=== PATIENT | female | born 1945 | race Caucasian/White ===

== ENCOUNTER 2021-10-26 09:15 | Outpatient (RCR) | payer MEDICARE, SELFPAY ==
[2021-09-27 09:47] VITALS: BMI 29.5
[2021-09-27 09:55] VITALS: BMI 29.5
== END 2021-12-17 14:48 | disposition home or self-care (01) ==
LOC: ANHDMC 09:15
PROVIDERS: PCP Emergency Medicine; Visit Provider Nurse Practitioner Family
DX: E11.65 Type 2 diabetes mellitus with hyperglycemia (principal); F03.90 Unspecified dementia, unspecified severity, without behavioral disturbance, psychotic disturbance, mood disturbance, and anxiety; Z71.89 Other specified counseling; Z71.3 Dietary counseling and surveillance
CPT/HCPCS: 97802; 99199; G0108

== ENCOUNTER 2022-11-29 17:20 | Emergency (ER) | payer MEDICARE, SELFPAY ==
--- NOTE | 2022-11-29 17:26 | ED.DIZZY ---
HPI - Dizziness General Chief Complaint: Dizziness Stated Complaint: Dizzy Time Seen by Provider: 11/29/22 17:35 Source: patient, RN notes reviewed and old records reviewed Mode of arrival: ambulatory Limitations: no limitations History of Present Illness HPI Narrative: 77-year-old female presents to the [facility] with complaints of dizziness that is got worse over the last 5 days.Patient states whenever she walks, turns her head or stands up the dizziness gets worse. Denies any chest pain or shortness of breath. Has a history of cardiac issues. Has a history of dementia. Patient reports several years ago she was admitted to the hospital for something similar, per medical records 2019 Onset (ago): day(s) (5) Related Data Home Medications Medication Instructions Recorded Confirmed loratadine 10 mg tablet (Claritin) 10 mg PO DAILY 11/05/19 11/29/22 aspirin 81 mg tablet,delayed 81 mg PO DAILY 03/20/21 11/29/22 release biotin 300 mcg tablet 300 mcg PO DAILY 04/24/22 11/29/22 calcium-vitamins B6-B12-FA tablet 1 tablet PO DAILY 04/24/22 11/29/22 Allergies Allergy/AdvReac Type Severity Reaction Status Date / Time tramadol Allergy Mild ITCHING,HIV Verified 11/29/22 17:47 ES Review of Systems Review of Systems: All systems reviewed & are unremarkable except as noted in HPI and below Constitutional: Constitutional: Reports no additional constitutional complaints Eyes: Eyes: Reports no additional eye complaints ENT: Reports system reviewed and no additional complaints, except as documented Cardiovascular: Cardiovascular: Reports no additional cardiovascular complaints, Denies chest pain and Denies dyspnea Respiratory: Respiratory: Reports no additional respiratory complaints, Denies chest congestion, Denies cough and Denies dyspnea Gastrointestinal: Gastrointestinal: Reports no additional gastrointestinal complaints, Denies abdominal pain, Denies nausea and Denies vomiting Musculoskeletal: Musculoskeletal: Reports no additional musculoskeletal complaints Integumentary/Breasts: Skin/Breast: Reports system reviewed and no additional complaints, except as docu Neurologic: Reports as per HPI, Reports dizziness, Denies headache(s), Denies focal weakness, Denies numbness and Denies weakness Psychiatric: Psychiatric: Reports no additional psychiatric complaints Allergic/Immunologic: Allergic/Immunologic: Reports no additional allergic/immunologic complaints PMFSH Past Medical History Medical History Balance disorder Body mass index (BMI) 23 or greater (08/06/19) Dementia Depression Diabetes mellitus Diabetic peripheral neuropathy Essential hypertension HTN (hypertension) Mixed hyperlipidemia Neuropathy CHONG (obstructive sleep apnea) Other and unspecified hyperlipidemia PAD (peripheral artery disease) Post-menopausal Right hip pain Type 2 diabetes mellitus with hyperglycemia, with long-term current use of insulin Vertigo Vitamin D deficiency Surgical History Surgical History History of ankle surgery left ankle and foot Family History Family History Sibling Hypertension Family history of diabetes mellitus in first degree relative Family history of malignant neoplasm of breast in first degree relative Family history of cardiovascular disease Mother Cerebrovascular accident Father Malignant neoplasm of prostate Patient's father is Family history of malignant neoplasm of urinary bladder, Onset Age: 75 Social History Social History Smoking packs per day: 0.25 Smoking cigarettes per day: 5.0 Years smoked: 2 Smoking pack-years: 0.50 Smoking status: Never smoker Smoking end date: 11/10/96 Alcohol intake: never Substance use: never Spiritual
[2022-11-29 17:54] LABS: Glucose Point of Care 136 mg/dl (65-105)
[2022-11-29 18:20] VITALS: BP 164/73; PULSE 82; RESP 18; TEMP 36.6; O2SAT 98
--- NOTE | 2022-11-30 16:07 | ECG_ITS ---
Measurements Intervals [place] Rate: 82 P: 3 [place]: 165 QRS: -22 QRSD: 105 T: 7 QT: 402 QTc: 471 Interpretive Statements SINUS RHYTHM BORDERLINE R WAVE PROGRESSION, ANTERIOR LEADS INFERIOR INFARCT, AGE INDETERMINATE BASELINE ARTIFACT- I, II, III, AVR, AVL, AVF ABNORMAL ECG COMPARED TO ECG 07/29/2019 20:11:43 NO SIGNIFICANT CHANGES Electronically Signed On 12-01-2022 14:01:01 BIOLOGY SPECIALIST by En Sparks D.O.
== END 2022-11-29 18:05 | disposition short-term general hospital (02) ==
PROVIDERS: Emergency Provider Nurse Practitioner; PCP Emergency Medicine
DX: R42 Dizziness and giddiness (principal); E11.9 Type 2 diabetes mellitus without complications; I10 Essential (primary) hypertension; E78.2 Mixed hyperlipidemia; F03.90 Unspecified dementia, unspecified severity, without behavioral disturbance, psychotic disturbance, mood disturbance, and anxiety; F17.210 Nicotine dependence, cigarettes, uncomplicated; Z79.82 Long term (current) use of aspirin
CPT/HCPCS: 82948; 93005; 99203; G0463

== ENCOUNTER 2022-11-29 18:59 | Emergency (ER) | payer MEDICARE, SELFPAY ==
--- NOTE | ~2022-11-29 | CT_ITS ---
EXAMINATION: CT brain wo con DATE: 11/30/2022 01:05 INDICATION: Dizziness. TECHNIQUE: Computed tomography (CT) of the head was performed without intravenous contrast. The mA wa s adjusted according to patient size. Iterative reconstruction technique was employed. The dose-lengt h product was 605.33 mGy-cm. COMPARISON: Head CT 07/29/2019 FINDINGS: There is diffuse brain volume loss. There are scattered areas of low attenuation in the cer ebral white matter. There is no intracranial hemorrhage, acute infarction, or abnormal intracranial m ass lesion. The ventricles are normal in size. The paranasal sinuses are clear. The mastoid air cells are normal. IMPRESSION: 1. Stable moderate nonspecific cerebral white matter disease, which likely represents chronic small v essel ischemic disease. Reviewed, dictated and finalized at location A. WARE TEST ANALYST IMPRESSION: 1. Stable moderate nonspecific cerebral white matter disease, which likely repr esents chronic small vessel ischemic disease.
--- NOTE | ~2022-11-29 | XR_ITS ---
EXAMINATION: XR chest 1V portable DATE: 11/30/2022 00:53 INDICATION: Weakness. TECHNIQUE: A single frontal view of the chest was obtained. COMPARISON: Chest 2 views 07/29/2019, CT abdomen and pelvis 08/28/2019 FINDINGS: There is mild atelectasis in left lower lung zone. No pleural effusion or pneumothorax. The heart size is normal. There are surgical clips in the abdomen. IMPRESSION: 1. Mild atelectasis in left lower lung zone. Reviewed, dictated and finalized at location A. OWNER OPERATOR TRUCK DRIVER
[2022-11-29 19:15] VITALS: BP 175/82; PULSE 78; RESP 18; TEMP 36.3; O2SAT 98
[2022-11-29 21:15] VITALS: BP 154/81; PULSE 80; TEMP 36.9; O2SAT 98
[2022-11-29 23:05] VITALS: BP 175/87; PULSE 78; TEMP 36.2; O2SAT 96
--- NOTE | 2022-11-30 00:43 | ECG_ITS ---
Measurements Intervals [place] Rate: 68 P: 13 VT: 160 QRS: -24 QRSD: 106 T: 10 QT: 429 QTc: 456 Interpretive Statements SINUS RHYTHM WITH SINUS ARRHYTHMIA INFERIOR INFARCT, AGE INDETERMINATE POOR R WAVE PROGRESSION, ANTERIOR LEADS ABNORMAL ECG COMPARED TO ECG 07/29/2019 20:11:43 NO SIGNIFICANT CHANGES Electronically Signed On 11-30-2022 9:59:48 SCENIC ARTIST by En Sparks D.O.
[2022-11-30] MEDS: MECLIZINE HCL 25 MG TABLET PO (00:53)
--- NOTE | 2022-11-30 01:44 | ED.GENADULT ---
HPI - General Adult General Chief complaint: Dizziness Stated complaint: DIZZINESS, OFF BALANCE Time Seen by Provider: 11/30/22 00:35 History of Present Illness HPI narrative: Patient 77-year-old female who presents the emergency department with chief complaint of dizziness. The patient reports whenever she lays back she has a feeling of lightheadedness. The patient denies chest pain denies shortness of breath patient reports has been going on for about a week was intermittent but today has become pretty well constant. The patient states she felt as though she was little off balance and felt similar to whenever she is had ear infections before in the past. Is Related Data Home Medications Medication Instructions Recorded Confirmed loratadine 10 mg tablet (Claritin) 10 mg PO DAILY 11/05/19 11/29/22 aspirin 81 mg tablet,delayed 81 mg PO DAILY 03/20/21 11/29/22 release biotin 300 mcg tablet 300 mcg PO DAILY 04/24/22 11/29/22 calcium-vitamins B6-B12-FA tablet 1 tablet PO DAILY 04/24/22 11/29/22 Allergies Allergy/AdvReac Type Severity Reaction Status Date / Time tramadol Allergy Mild ITCHING,HIV Verified 11/29/22 17:47 ES Review of Systems Review of Systems: A 10 system review of systems was completed on the patient and is negative except for what is stated in the HPI. Nursing and ancillary documentation was reviewed. [facility] Past Medical History Medical History Balance disorder Body mass index (BMI) 23 or greater (08/06/19) Dementia Depression Diabetes mellitus Diabetic peripheral neuropathy Essential hypertension HTN (hypertension) Mixed hyperlipidemia Neuropathy CHONG (obstructive sleep apnea) Other and unspecified hyperlipidemia PAD (peripheral artery disease) Post-menopausal Right hip pain Type 2 diabetes mellitus with hyperglycemia, with long-term current use of insulin Vertigo Vitamin D deficiency Surgical History Surgical History History of ankle surgery left ankle and foot Family History Family History Sibling Hypertension Family history of diabetes mellitus in first degree relative Family history of malignant neoplasm of breast in first degree relative Family history of cardiovascular disease Mother Cerebrovascular accident Father Malignant neoplasm of prostate Patient's father is Family history of malignant neoplasm of urinary bladder, Onset Age: 75 Social History Social History Smoking packs per day: 0.25 Smoking cigarettes per day: 5.0 Years smoked: 2 Smoking pack-years: 0.50 Smoking status: Never smoker Smoking end date: 11/10/96 Alcohol intake: never Substance use: never Spiritual care concerns: No Exam Narrative: GENERAL: Well-appearing, well-nourished, and in no acute distress. HEAD: Normocephalic, atraumatic. EYES: PERRLA and EOMI. ENT: Nares clear, no rhinorrhea or epistaxis. Mucous membranes moist. NECK: Supple. CHEST: Clear to auscultation. No respiratory distress. HEART: Regular rate and rhythm. No murmur heard. Normal peripheral pulses. ABDOMEN: Soft, nontender, nondistended, normal active bowel sounds. EXTREMITIES: Normal range of motion. No edema. SKIN: Warm, dry, no rash. NEURO: No focal deficits. Alert and oriented x3. PSYCH: Normal mood and affect. Course Vital Signs Vital signs: Vital Signs Temperature 36.3 C L 11/29/22 19:15 Pulse Rate 78 11/29/22 19:15 Respiratory Rate 18 11/29/22 19:15 Blood Pressure 175/82 H 11/29/22 19:15 Pulse Oximetry 98 11/29/22 19:15 Oxygen Delivery Room Air 11/29/22 19:15 Temperature 36.2 C L 11/29/22 23:05 Pulse Rate 78 11/29/22 23:05 Respiratory Rate 18 11/29/22 19:15 Blood Pressure 175/87 H
[2022-11-30 01:58] LABS: Basophils Absolute Auto 0.1 K/mm3 (0.0-0.1); Basophils Percent Auto 1.1 % (0.2-1.2); Eosinophils Absolute Auto 0.8 K/mm3 (0-0.3); Eosinophils Percent Auto 8.5 % (0-4.4); Hematocrit 38.7 % (37.0-47.0); Hemoglobin 12.7 g/dL (12.0-15.0); Immature Granulocyte Absolute 0.04 K/mm3 (0.00-0.031); Immature Granulocyte Percent A 0.4 % (0-0.5); Lymphocytes Absolute Auto 2.41 K/mm3 (0.9-3.2); Lymphocytes Percent Auto 25.5 % (18.3-44.2); Mean Corpuscular HGB Conc 32.8 g/dl (32-36); Mean Corpuscular Hemoglobin 28.5 pg (26-34); Mean Corpuscular Volume 86.8 fl (80-100); Monocytes Absolute Auto 0.7 K/mm3 (0.1-0.6); Monocytes Percent Auto 7.6 % (2.6-8.5); Neutrophils Absolute Auto 5.4 K/mm3 (1.3-6.7); Neutrophils Percent Auto 56.9 % (45.5-73.1); Platelet Count Result 306 k/mm3 (150-375); Red Blood Count 4.46 M/mm3 (4.2-5.4); Red Cell Distribution Width 13.2 % (11.5-14.5); White Blood Count 9.5 K/mm3 (4.5-10.0)
[2022-11-30 02:07] LABS: Alanine Aminotransferase 21 U/L (6-35); Albumin Level 4.5 g/dL (3.5-5.1); Alkaline Phosphatase 29 U/L (38-126); Anion Gap 9 mmol/L (8-16); Aspartate Amino Transferase 22 U/L (14-36); Bilirubin,Total 0.4 mg/dL (0.2-1.3); Blood Urea Nitrogen 9 mg/dL (7-17); Calcium 9.2 mg/dL (8.4-10.2); Carbon Dioxide 28 mmol/L (22-30); Chloride 94 mmol/L (98-107); Estimated CRCL calculation 75 ml/min; Estimated Glomerular Filt Rate > 60; Glucose 122 mg/dL (65-110); Magnesium 1.5 mg/dL (1.6-2.3); Potassium 3.7 mmol/L (3.4-5.0); Sodium 131 mmol/L (137-145)
[2022-11-30 02:19] LABS: Troponin I < 0.012 ng/mL (0.000-0.034)
[2022-11-30] MEDS: MAGNESIUM SULF 2 GM/WATER 50ML 2 GM/50 ML BAG IVPB (02:52)
[2022-11-30 03:08] LABS: Appearance Urine Clear (Clear); Bilirubin Urine Negative (Negative); Blood Urine Negative (Negative); Color Urine Yellow (Yellow); Glucose Urine UA Negative (Negative); Ketones Urine Negative (Negative); Leukocyte Esterase Ur 2+ LEU/UL (Negative); Nitrate Urine Positive (Negative); Protein Urine Negative (Negative); Specific Grav Ur 1.015 (1.001-1.035); Urobilinogen Urine 0.2 mg/dL (<2.0); pH Urine 6.5 (5.0-9.0)
[2022-11-30 03:17] LABS: Bacteria Urine Trace /hpf; Mucus Urine Rare /lpf; Squamous Epithelial Cell Urine Many /hpf (Few); WBC Urine >75 /hpf
[2022-11-30 03:20] LABS: Add Urine Microscopic? YES
[2022-11-30 05:10] VITALS: BP 177/63; PULSE 77; RESP 16; O2SAT 98
== END 2022-11-30 05:30 | disposition home or self-care (01) ==
PROVIDERS: Emergency Provider Emergency Medicine; PCP Emergency Medicine
DX: N39.0 Urinary tract infection, site not specified (principal); R42 Dizziness and giddiness; E83.42 Hypomagnesemia; F03.90 Unspecified dementia, unspecified severity, without behavioral disturbance, psychotic disturbance, mood disturbance, and anxiety; I10 Essential (primary) hypertension; E11.9 Type 2 diabetes mellitus without complications; E78.2 Mixed hyperlipidemia; Z79.82 Long term (current) use of aspirin; F17.210 Nicotine dependence, cigarettes, uncomplicated
CPT/HCPCS: 36415; 70450; 71045; 80053; 81001; 83735; 84484; 85025; 87077; 87086; 87186; 93005; 96365; 99284; A9270; J3475

== ENCOUNTER 2023-05-05 13:58 | Emergency (ER) | payer MEDICARE, SELFPAY ==
--- NOTE | ~2023-05-05 | CT_ITS ---
EXAMINATION: CT brain wo con DATE: 05/05/2023 14:48 INDICATION: Nasal pain post fall with head injury. TECHNIQUE: Computed tomography (CT) of the head was performed without intravenous contrast. Sagittal and coronal reconstructions were performed. The mA was adjusted according to patient size. Iterative reconstruction technique was employed. The dose-length product was 605.33 mGy-cm. COMPARISON: head CT dated 11/30/2022 and 07/29/2019 FINDINGS: Stable appearance of a likely old fracture deformity of the right nasal bone. No acute fracture. No a cute intracranial hemorrhage, acute infarction or abnormal extra axial fluid collection. There is mod erate scattered white matter hypoattenuation consistent with chronic small vessel ischemic disease. S ymmetric prominence of the sulci and and subarachnoid spaces overlying the convexities consistent wit h moderate age-appropriate diffuse cerebral volume loss. Ventricles are normal and symmetric. No mass /mass effect. Changes of bilateral intraocular lens replacement. The orbits, paranasal sinuses and ma stoid air cells are normal. Intracranial calcified cerebral atherosclerosis is noted at the bilateral carotid siphons. IMPRESSION: 1. No acute intracranial process. 2. Age-related changes including moderate diffuse volume loss and moderate scattered white matter hyp oattenuation consistent with chronic small vessel ischemic disease. Reviewed, dictated and finalized at location A. IMPRESSION: 1. No acute intracranial process. 2. Age-related changes including moderate diffuse volume loss and moderate scat tered white matter hypoattenuation consistent with chronic small vessel ischemi c disease.
--- NOTE | ~2023-05-05 | XR_ITS ---
EXAM: XR knee RT 3V DATE: 05/05/2023 14:58 HISTORY: fall, UNABLE TO BEND KNEE . COMPARISON: None available. FINDINGS: Decreased mineralization. Mildly comminuted fracture of the inferior patella, with 7 mm di straction. No lytic or blastic lesion. Mild tricompartmental right knee osteoarthritis. No erosion or periosteal change. Significant prepatellar soft tissue swelling. Vascular calcifications. IMPRESSION: Comminuted, distracted fracture of the right patella with considerable overlying soft tis elijah swelling. Reviewed, dictated and finalized at location K. IMPRESSION: Comminuted, distracted fracture of the right patella with considera ble overlying soft tissue swelling.
--- NOTE | ~2023-05-05 | XR_ITS ---
EXAM: XR hip RT 2V w AP pelvis DATE: 05/05/2023 14:58 HISTORY: fall, PAIN . COMPARISON: None available. FINDINGS: Decreased mineralization. No fracture or dislocation. No lytic or blastic lesion. Mild lum bar degenerative disc disease. Mild degenerative change in the hips and pubic symphysis. No erosion o r periosteal change. Pelvic phleboliths. Scattered vascular calcifications. IMPRESSION: No acute osseous finding in the pelvis or right hip. Reviewed, dictated and finalized at location K.
--- NOTE | ~2023-05-05 | CT_ITS ---
EXAMINATION: 1. CT facial & cervical spine wo DATE: 05/05/2023 14:48 INDICATION: Nasal pain post fall with head injury TECHNIQUE: 1. Computed tomography (CT) of the maxillofacial region and of the cervical spine were performed with out intravenous contrast. Sagittal and coronal reconstructions of both regions were obtained. Automat ed exposure control and iterative reconstruction technique were employed. The dose-length product was 286.50 mGy-cm. COMPARISON: Head CT dated 07/29/2019 FINDINGS: Maxillofacial CT: Stable appearance of some asymmetry to the nasal bones which could be either developmental or sequela of old fracture. No acute maxillofacial fractures identified. Changes of bilateral intraocular lens replacement. Orbits are otherwise normal. Atherosclerotic calcifications at the bilateral carotid bul bs and bilateral carotid siphons. Cervical spine CT: Alignment is normal. Vertebral body heights are normal. No fracture. Moderate disc height loss at C6- C7 and mild disc height loss at C4-C5 with moderate uncovertebral osteoarthritis at both levels. Post erior disc osteophyte complexes result in mild central canal stenosis at both of these levels. There is multilevel severe facet osteoarthritis in the mid to upper cervical spine with fusion across the l eft C2-C3 facet joints. This contributes to multilevel mild bilateral cervical neural foraminal steno sis. Mild groundglass opacity and some smooth septal line thickening at the bilateral apices of lungs consistent with mild pulmonary edema. IMPRESSION: 1. No acute maxillofacial or cervical spine fractures. 2. Mild to moderate cervical spondylosis. Reviewed, dictated and finalized at location A.
[2023-05-05 13:59] VITALS: BP 190/92; PULSE 80; RESP 20; TEMP 36.4; O2SAT 98
--- NOTE | 2023-05-05 14:03 | ED.GENADULT ---
HPI - General Adult General Chief complaint: Fall <Ray Sung PA-C - Last Filed: 05/05/23 18:35> Stated complaint: fall - knee injury <Ray Sung PA-C - Last Filed: 05/05/23 18:35> Source: patient <Ray Sung PA-C - Last Filed: 05/05/23 18:35> Mode of arrival: ambulatory <Ray Sung PA-C - Last Filed: 05/05/23 18:35> Limitations: no limitations <FABIOLA Tena Last Filed: 05/05/23 18:35> History of Present Illness HPI narrative: This is a 78-year-old female who presents to the ED via EMS for chief complaint of a fall. Patient reports she was walking through the house when she tripped on the floor lip in between her kitchen and living room. Denies any LOC. She is not on blood thinners other than baby aspirin every day. She reports she fell directly onto the right knee and hit her face as well. She reports pain to the right knee and right thigh. Reports minimal pain to the right hip. Denies any neurologic symptoms. Denies any further site of pain or injury. Per EMS she received 4 of morphine in route. <FABIOLA Tena Last Filed: 05/05/23 18:35> Related Data Home medications: Home Medications Medication Instructions Recorded Confirmed loratadine 10 mg tablet (Claritin) 10 mg PO DAILY 11/05/19 02/18/23 aspirin 81 mg tablet,delayed 81 mg PO DAILY 03/20/21 02/18/23 release biotin 300 mcg tablet 300 mcg PO DAILY 04/24/22 02/18/23 calcium-vitamins B6-B12-FA tablet 1 tablet PO DAILY 04/24/22 02/18/23 <FABIOLA Tena Last Filed: 05/05/23 18:35> Allergies/adverse reactions: Allergies Allergy/AdvReac Type Severity Reaction Status Date / Time tramadol Allergy Mild ITCHING,HIV Verified 05/05/23 14:10 ES <FABIOLA Tena Last Filed: 05/05/23 18:35> [facility] Past Medical History Medical History: Medical History Balance disorder Body mass index (BMI) 23 or greater (08/06/19) Dementia Depression Diabetes mellitus Diabetic peripheral neuropathy Essential hypertension HTN (hypertension) Mixed hyperlipidemia Neuropathy CHONG (obstructive sleep apnea) Other and unspecified hyperlipidemia PAD (peripheral artery disease) Post-menopausal Right hip pain Type 2 diabetes mellitus with hyperglycemia, with long-term current use of insulin Vertigo Vitamin D deficiency <Ray Sung PA-C - Last Filed: 05/05/23 18:35> Surgical History Surgical History: Surgical History History of ankle surgery left ankle and foot <Ray Sung PA-C - Last Filed: 05/05/23 18:35> Family History Family History: Family History Sibling Hypertension Family history of diabetes mellitus in first degree relative Family history of malignant neoplasm of breast in first degree relative Family history of cardiovascular disease Mother Cerebrovascular accident Father Malignant neoplasm of prostate Patient's father is Family history of malignant neoplasm of urinary bladder, Onset Age: 75 <FABIOLA Tena Last Filed: 05/05/23 18:35> Social History Social History: Social History Smoking packs per day: 0.25 Smoking cigarettes per day: 5.0 Years smoked: 2 Smoking pack-years: 0.50 Smoking status: Never smoker Smoking end date: 11/10/96 Alcohol intake: never Substance use: never Spiritual care concerns: No <FABIOLA Tena Last Filed: 05/05/23 18:35> Exam Narrative: GENERAL: Well-appearing, well-nourished, and in no acute distress. HEAD: Normocephalic, atraumatic. Minimal tenderness throughout the face. EYES: PERRLA and EOMI. ENT: Nares clear, no rhinorrhea or epistaxis. Mucous membranes moist. Oropharynx without tonsillar hypertrophy exudate or o
[2023-05-05 15:19] VITALS: BP 168/81; PULSE 84; RESP 18; O2SAT 99
[2023-05-05 15:27] LABS: Basophils Absolute Auto 0.1 K/mm3 (0.0-0.1); Eosinophils Absolute Auto 0.8 K/mm3 (0-0.3); Eosinophils Percent Auto 8.7 % (0-4.4); Hematocrit 36.9 % (37.0-47.0); Hemoglobin 12.3 g/dL (12.0-15.0); Immature Granulocyte Absolute 0.03 K/mm3 (0.00-0.031); Immature Granulocyte Percent A 0.3 % (0-0.5); Lymphocytes Absolute Auto 1.45 K/mm3 (0.9-3.2); Lymphocytes Percent Auto 16.1 % (18.3-44.2); Mean Corpuscular HGB Conc 33.3 g/dl (32-36); Mean Corpuscular Hemoglobin 28.9 pg (26-34); Mean Corpuscular Volume 86.8 fl (80-100); Mean Platelet Volume 9.1 fl (7.4-10.4); Monocytes Absolute Auto 0.5 K/mm3 (0.1-0.6); Monocytes Percent Auto 5.5 % (2.6-8.5); Neutrophils Absolute Auto 6.2 K/mm3 (1.3-6.7); Neutrophils Percent Auto 68.4 % (45.5-73.1); Platelet Count Result 298 k/mm3 (150-375); Red Blood Count 4.25 M/mm3 (4.2-5.4); Red Cell Distribution Width 13.2 % (11.5-14.5)
[2023-05-05 15:37] LABS: Alanine Aminotransferase 24 U/L (6-35); Albumin Level 4.4 g/dL (3.5-5.1); Alkaline Phosphatase 33 U/L (38-126); Anion Gap 9 mmol/L (8-16); Aspartate Amino Transferase 26 U/L (14-36); Bilirubin,Total 0.3 mg/dL (0.2-1.3); Blood Urea Nitrogen 8 mg/dL (7-17); Calcium 9.2 mg/dL (8.4-10.2); Carbon Dioxide 29 mmol/L (22-30); Chloride 92 mmol/L (98-107); Estimated CRCL calculation 72 ml/min; Estimated Glomerular Filt Rate > 60; Glucose 178 mg/dL (65-110); Potassium 4.3 mmol/L (3.4-5.0); Sodium 130 mmol/L (137-145)
[2023-05-05 15:39] LABS: INR 0.9; Prothrombin Time 12.9 Seconds (11.1-14.7)
[2023-05-05 17:30] VITALS: BP 133/67; PULSE 86; RESP 16; O2SAT 99
--- NOTE | 2023-05-06 16:20 | PCCCNOTE ---
Call received from pt asking for information on being admitted to a facility after falling and being seen with fractured patella. She had been to [facility] in the past and would like to go there if possible. Call placed to [facility] and spoke with Lauren. They would need to run financials before they could accept her and then require payment up front for $275 per day plus any therapy charges. Informed pt and gave her facility's phone number. It was also recommended to her that she contact her insurance if she thinks they will cover but informed they may not as she was not admitted. She will call and has a dtr in the are who is bringing her a wheelchair. She has a walker.
== END 2023-05-05 18:07 | disposition home or self-care (01) ==
PROVIDERS: Emergency Provider Physician Assistant; PCP Emergency Medicine
DX: S82.041A Displaced comminuted fracture of right patella, initial encounter for closed fracture (principal); M25.551 Pain in right hip; E11.9 Type 2 diabetes mellitus without complications; I10 Essential (primary) hypertension; E78.2 Mixed hyperlipidemia; F03.90 Unspecified dementia, unspecified severity, without behavioral disturbance, psychotic disturbance, mood disturbance, and anxiety; F17.210 Nicotine dependence, cigarettes, uncomplicated; F32.A Depression, unspecified; Z78.0 Asymptomatic menopausal state; Z79.82 Long term (current) use of aspirin; Y92.000 Kitchen of unspecified non-institutional (private) residence as the place of occurrence of the external cause; W01.0XXA Fall on same level from slipping, tripping and stumbling without subsequent striking against object, initial encounter
CPT/HCPCS: 36415; 70450; 70486; 72125; 73502; 73562; 80053; 85025; 85610; 99284

== ENCOUNTER 2024-05-01 13:06 | Emergency (ER) | payer MEDICARE, SELFPAY ==
--- NOTE | ~2024-05-01 | XR_ITS ---
XR knee LT min 4V DATE: 05/01/2024 13:31 INDICATION: Struck knee on an object 3 days ago. Left knee pain. TECHNIQUE: [place], [place], AP and lateral views of left knee COMPARISON: None FINDINGS: Mild superior pole patellar enthesopathy at the quadriceps tendon insertion site. Mild loss of medial joint space height with slight periarticular spurring of the medial femoral condy le. No fracture or dislocation or joint effusion. No periosteal reaction or bone destruction. Osteopenia. Prominent femoral and popliteal artery in addition some trifurcation artery calcifications IMPRESSION: No fracture or dislocation or joint effusion Mild osteoarthritis Osteopenia Reviewed, dictated and finalized at location A.
--- NOTE | ~2024-05-01 | US_ITS ---
EXAMINATION: US venous doppler [facility] DATE: 05/01/2024 14:02 INDICATION: Left lower limb swelling. TECHNIQUE: Grayscale ultrasound images without and with compression and Doppler ultrasound images of the left lower extremity veins were obtained. COMPARISON: None. FINDINGS: The visualized portions of left common femoral vein, profunda (deep) femoral vein, femoral vein, popl iteal vein, peroneal veins, posterior tibial veins, and greater saphenous vein outflow are patent. IMPRESSION: 1. No deep venous thrombosis. Reviewed, dictated and finalized at location E.
[2024-05-01 13:07] VITALS: BP 165/61; PULSE 94; RESP 20; TEMP 36.5; O2SAT 97
--- NOTE | 2024-05-01 13:38 | ED.EXTPRO ---
HPI - Extremity Problem General Chief complaint: Extremity Problem,Nontraumatic Stated complaint: LLE swelling Time Seen by Provider: 05/01/24 13:35 Source: patient and family (grandson) Mode of arrival: ambulatory Limitations: dementia History of Present Illness HPI Narrative: patient presents with left lower extremity swelling and edema for the past 4 days. She notes pain primarily along the lateral side of her left knee. She denies any trauma or injury however her grandson says she slipped last week on some water. No recent travel. she denies any shortness of breath. She took Aleve 3 hours prior to arrival. Pain is worse when walking. She states she is having some slight paresthesias in the same distribution of the area the pain. No prior injury or surgery on this extremity. She does note that she previously saw an orthopedic surgeon for a right knee fracture, a Dr Payne (?). she does note that she hears some pops and clicks when she walks. Related Data Home Medications Medication Instructions Recorded Confirmed aspirin 81 mg tablet,delayed 81 mg PO DAILY 03/20/21 04/08/24 release calcium-vitamins B6-B12-FA tablet 1 tablet PO DAILY 04/24/22 04/08/24 multivitamin 1 tablet PO DAILY 06/24/23 04/08/24 Allergies Allergy/AdvReac Type Severity Reaction Status Date / Time tramadol Allergy Mild ITCHING,HIV Verified 05/01/24 13:10 [facility] Past Medical History Medical History (Updated 05/02/24 @ 21:31 by Ginny Veronica MD) Balance disorder Body mass index (BMI) 23 or greater (08/06/19) Dementia Depression Diabetic peripheral neuropathy Essential hypertension HTN (hypertension) Insulin dependent diabetes mellitus Knee fracture, right Mixed hyperlipidemia Neuropathy CHONG (obstructive sleep apnea) Other and unspecified hyperlipidemia PAD (peripheral artery disease) Post-menopausal Right hip pain Vertigo Vitamin D deficiency Surgical History Surgical History History of ankle surgery left ankle and foot Family History Family History Sibling Hypertension Family history of diabetes mellitus in first degree relative Family history of malignant neoplasm of breast in first degree relative Family history of cardiovascular disease Mother Cerebrovascular accident Father Malignant neoplasm of prostate Patient's father is Family history of malignant neoplasm of urinary bladder, Onset Age: 75 Social History Social History Smoking packs per day: 0.25 Smoking cigarettes per day: 5.0 Years smoked: 2 Smoking pack-years: 0.50 Smoking status: Former smoker Smoking end date: 11/10/96 Alcohol intake: never Substance use: never Lack of Transportation: YES Lack of Food: Never True Current Housing: I Have Housing Concerned About Future Housing: No Difficulty Paying Gas/Electric Bills: YES Difficulty Paying for Meds: No Currently Unemployed: No Education: High School Diploma/GED Difficulty w/ Childcare or Family Care: No Occupation/Education: retired Gender identity (if verbalized by the patient): Female Spiritual care concerns: No Exam Narrative: GENERAL: Well-appearing, well-nourished, and in no acute distress. HEAD: Normocephalic, atraumatic. EYES: Non injected, non icteric ENT: Nares clear, no rhinorrhea or epistaxis. NECK: Supple. CHEST: Speaking in full sentences. No respiratory distress. HEART: Regular rate and rhythm. . ABDOMEN: Soft, nondistended. EXTREMITIES: Normal range of motion. No pitting edema. No increased laxity with anterior or posterior drawer testing of left knee. SKIN: Warm, dry, venous stasis changes across bilateral lower extremities NEURO: No focal deficits. Alert and oriented. diminished sensation in bilateral lower extremities in the m
[2024-05-01] MEDS: HYDROcodone/acetaminophen (*CRX) 5-325 MG TABLET 1 TAB PO (14:14)
[2024-05-01 14:43] VITALS: BP 130/76; PULSE 72; RESP 16; TEMP 36.6; O2SAT 98
[2024-05-01 14:45] VITALS: BP 137/65; PULSE 75; RESP 18; TEMP 36.6; O2SAT 100
== END 2024-05-01 14:44 | disposition home or self-care (01) ==
PROVIDERS: Emergency Provider Student in an Organized Health Care Education/Training Program; PCP Emergency Medicine
DX: M17.12 Unilateral primary osteoarthritis, left knee (principal); F03.90 Unspecified dementia, unspecified severity, without behavioral disturbance, psychotic disturbance, mood disturbance, and anxiety; I10 Essential (primary) hypertension; E78.2 Mixed hyperlipidemia; E11.42 Type 2 diabetes mellitus with diabetic polyneuropathy; E11.51 Type 2 diabetes mellitus with diabetic peripheral angiopathy without gangrene; I73.9 Peripheral vascular disease, unspecified; E55.9 Vitamin D deficiency, unspecified; G47.33 Obstructive sleep apnea (adult) (pediatric); Z87.891 Personal history of nicotine dependence; M85.88 Other specified disorders of bone density and structure, other site; Z79.82 Long term (current) use of aspirin; Z79.899 Other long term (current) drug therapy; Z79.4 Long term (current) use of insulin; Z79.85 Long-term (current) use of injectable non-insulin antidiabetic drugs
CPT/HCPCS: 73564; 93971; 99284; A9270

== ENCOUNTER 2024-08-10 16:17 | Emergency (ER) | payer MEDICARE, SELFPAY ==
--- NOTE | ~2024-08-10 | CT_ITS ---
EXAMINATION: CT brain wo con DATE: 08/10/2024 16:43 INDICATION: fall . TECHNIQUE: Computed tomography (CT) of the head was performed without intravenous contrast. The mA wa s adjusted according to patient size. Iterative reconstruction technique was employed. The dose-lengt h product was 605.33 mGy-cm. COMPARISON: None. FINDINGS: No acute intracranial hemorrhage or extra-axial fluid collection. No hydrocephalus, mass, or herniation. No acute ischemic infarct. Unremarkable dural venous sinus attenuation. No acute osseous abnormality. Right frontal contusion/hematoma The aerated spaces are clear. Moderate atrophy and chronic white matter change. Atherosclerotic intracranial calcification. Bilater al lens replacements. 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 IMPRESSION: No acute intracranial process. Reviewed, dictated and finalized at location K.
--- NOTE | ~2024-08-10 | CT_ITS ---
EXAMINATION: CT cervical spine wo con DATE: 08/10/2024 16:43 INDICATION: fall TECHNIQUE: Computed tomography (CT) of the cervical spine was performed without intravenous contrast. Automated exposure control and iterative reconstruction technique were employed. The dose-length pro duct was 202.35 mGy-cm. COMPARISON: 05/05/2023. FINDINGS: Vertebral Body Alignment: Intact. Craniocervical and atlantoaxial alignment: Moderate degenerative change. Alignment intact. Osseous structures/fracture: No evidence of a lytic or blastic process in the visualized spine. No e vidence of acute fracture. Cervical soft tissues: The paraspinal soft tissues planes are maintained. Mild interstitial/senescent changes in the lung apices. Degenerative changes: Degenerative changes, without severe neural foraminal or central canal narrowin g. IMPRESSION: No acute fracture or traumatic malalignment in the cervical spine. Reviewed, dictated and finalized at location K.
[2024-08-10 17:00] VITALS: BP 154/77; PULSE 95; RESP 16; TEMP 36.8; O2SAT 96
--- NOTE | 2024-08-10 18:51 | ED.HEATRA ---
HPI - Head Injury General Chief complaint: Head Injury Stated complaint: head injury/fall Time Seen by Provider: 08/10/24 18:51 Focused HPI: this is a 79-year-old female that presents to the emergency department after a fall with head injury. Reports she was leaning and son object that was unsteady. This caused her to fall. She hit her head. She did not lose consciousness. Denies vision changes, vomiting, numbness, weakness. GENERAL: Well-appearing, well-nourished, and in no acute distress. HEAD: Normocephalic. Bruising over the right forehead CHEST: Clear to auscultation. ?No respiratory distress. HEART: Regular rate and rhythm.? NEURO: ?Alert and oriented x3. Patient screened in triage and initial orders placed.? ?Additional care and disposition to be based upon?diagnostic testing and treatment. Related Data Home Medications Medication Instructions Recorded Confirmed aspirin 81 mg tablet,delayed 81 mg PO DAILY 03/20/21 04/08/24 release calcium-vitamins B6-B12-FA tablet 1 tablet PO DAILY 04/24/22 04/08/24 multivitamin 1 tablet PO DAILY 06/24/23 04/08/24 Allergies Allergy/AdvReac Type Severity Reaction Status Date / Time tramadol Allergy Mild ITCHING,HIV Verified 05/01/24 13:10 ES Review of Systems Review of Systems: CONSTITUTIONAL: Denies fever EYES: Denies visual changes GASTROINTESTINAL: Denies vomiting MUSCULOSKELETAL: Denies back pain, joint pain, or myalgia. NEUROLOGIC: Denies numbness, or weakness. All systems reviewed & are unremarkable except as noted in HPI and below PMFSH Past Medical History Medical History (Updated 08/10/24 @ 18:52 by Maria Teresa Gimenez PA-C) Balance disorder Body mass index (BMI) 23 or greater (08/06/19) Dementia Depression Diabetic peripheral neuropathy Essential hypertension HTN (hypertension) Insulin dependent diabetes mellitus Knee fracture, right Mixed hyperlipidemia Neuropathy CHONG (obstructive sleep apnea) Other and unspecified hyperlipidemia PAD (peripheral artery disease) Post-menopausal Right hip pain Vertigo Vitamin D deficiency Surgical History Surgical History History of ankle surgery left ankle and foot Family History Family History Sibling Hypertension Family history of diabetes mellitus in first degree relative Family history of malignant neoplasm of breast in first degree relative Family history of cardiovascular disease Mother Cerebrovascular accident Father Malignant neoplasm of prostate Patient's father is Family history of malignant neoplasm of urinary bladder, Onset Age: 75 Social History Social History Smoking packs per day: 0.25 Smoking cigarettes per day: 5.0 Years smoked: 2 Smoking pack-years: 0.50 Smoking status: Former smoker Smoking end date: 11/10/96 Alcohol intake: never Substance use: never Lack of Transportation: YES Lack of Food: Never True Current Housing: I Have Housing Concerned About Future Housing: No Difficulty Paying Gas/Electric Bills: YES Difficulty Paying for Meds: No Currently Unemployed: No Education: High School Diploma/GED Difficulty w/ Childcare or Family Care: No Occupation/Education: retired Gender identity (if verbalized by the patient): Female Spiritual care concerns: No Exam Narrative: GENERAL: Elderly, well-nourished, and in no acute distress. HEAD: Normocephalic. Forehead bruising, bruising of the right eyelid EYES: PERRLA and EOMI. ENT: Nares clear, no rhinorrhea or epistaxis. Mucous membranes moist. Oropharynx without tonsillar hypertrophy exudate or other lesions. Bilateral TMs pearly cruz non-bulging NECK: Supple. No adenopathy or masses. CHEST: Clear to auscultation. No respiratory distress. No wheezes rales or rhonchi HEART: Regular rate and rh
== END 2024-08-10 18:55 | disposition home or self-care (01) ==
LOC: ANHED 18:54
PROVIDERS: Emergency Provider Physician Assistant; PCP Emergency Medicine
DX: S09.90XA Unspecified injury of head, initial encounter (principal); W19.XXXA Unspecified fall, initial encounter; F03.90 Unspecified dementia, unspecified severity, without behavioral disturbance, psychotic disturbance, mood disturbance, and anxiety; E11.42 Type 2 diabetes mellitus with diabetic polyneuropathy; I10 Essential (primary) hypertension; E78.2 Mixed hyperlipidemia; G47.33 Obstructive sleep apnea (adult) (pediatric); E11.51 Type 2 diabetes mellitus with diabetic peripheral angiopathy without gangrene; E55.9 Vitamin D deficiency, unspecified; F32.A Depression, unspecified; Z79.82 Long term (current) use of aspirin; Z87.891 Personal history of nicotine dependence; Z79.4 Long term (current) use of insulin; Z79.85 Long-term (current) use of injectable non-insulin antidiabetic drugs; Z79.84 Long term (current) use of oral hypoglycemic drugs
CPT/HCPCS: 70450; 72125; 99284

== ENCOUNTER 2024-11-28 09:22 | Emergency (ER) | payer MEDICARE, SELFPAY ==
[2024-11-28] VITALS (17 sets, daily range): BP systolic 121–177; BP diastolic 62–77; PULSE 74–85; RESP 12–23; TEMP 36.5; O2SAT 96–100
--- NOTE | ~2024-11-28 | CT_ITS ---
CLINICAL INDICATION: Abnormal ultrasound without a history of trauma. COMPARISON: Reference is made to prior ultrasound examination of the right lower extremity, performed on the same day. TECHNIQUE: Computed tomography angiography (CTA) of the bilateral lower extremities was performed wit h 100 mL Omnipaque-350 intravenous contrast timed to evaluate the abdominal aorta and mesenteric vasc ulature. Coronal maximum intensity projection 3D-reconstructions were created by the technologist. Th e dose-length product (DLP) was 556.31 mGy-cm. Automated exposure control and iterative reconstructio n technique were employed. FINDINGS/OBSERVATIONS: Within the right popliteal fossa is a small Sosa's cyst, likely not the source of patient's presenta tion. Caudal to the popliteal fossa is abnormal attenuation and enlargement of the gastrocnemius muscle wit h increased vascularity, but without a discrete fluid collection identified. No bony abnormality is appreciated within the bilateral lower extremities (except fixation hardware w ithin the left fibula). IMPRESSION: Findings within the right calf, corresponding to the area of clinical concern for which contrast enha nced MRI is recommended. Follow-up to resolution is recommended, as a malignancy may have a similar appearance. Small right-sided Sosa's cyst, not the source of patient's presentation. Reviewed, dictated and finalized at location A. [employer] IMPRESSION: Findings within the right calf, corresponding to the area of clinical concern f or which contrast enhanced MRI is recommended. Follow-up to resolution is recommended, as a malignancy may have a similar appe arance. Small right-sided Sosa's cyst, not the source of patient's presentation.
--- NOTE | ~2024-11-28 | US_ITS ---
EXAMINATION: US venous doppler [facility] DATE: 11/28/2024 11:14 INDICATION: Swelling TECHNIQUE: Grayscale ultrasound images without and with compression and Doppler ultrasound images of the right lower extremity veins were obtained. COMPARISON: None. FINDINGS: The visualized portions of right common femoral vein, profunda (deep) femoral vein, femoral vein, pop liteal vein, peroneal veins, posterior tibial veins, and greater saphenous vein outflow are patent. Within the area of clinical concern is an avascular focus of mixed echogenicity measuring 72 x 32 x 6 7mm, possibly a hematoma. IMPRESSION: No deep venous thrombosis. 7.2 cm focus of mixed echogenicity within the right calf (the area of clinical concern) sonographical ly suggesting a hematoma for which clinical correlation is suggested Reviewed, dictated and finalized at location A. [employer] IMPRESSION: No deep venous thrombosis. 7.2 cm focus of mixed echogenicity within the right calf (the area of clinical concern) sonographically suggesting a hematoma for which clinical correlation i s suggested
[2024-11-28 10:51] LABS: Basophils Absolute Auto 0.1 K/mm3 (0.0-0.1); Basophils Percent Auto 0.5 % (0.2-1.2); Eosinophils Absolute Auto 0.5 K/mm3 (0-0.3); Eosinophils Percent Auto 4.6 % (0-4.4); Hematocrit 30.8 % (37.0-47.0); Hemoglobin 9.8 g/dL (12.0-15.0); Immature Granulocyte Absolute 0.05 K/mm3 (0.00-0.031); Immature Granulocyte Percent A 0.5 % (0-0.5); Lymphocytes Absolute Auto 1.39 K/mm3 (0.9-3.2); Mean Corpuscular HGB Conc 31.8 g/dl (32-36); Mean Corpuscular Hemoglobin 27.3 pg (26-34); Mean Corpuscular Volume 85.8 fl (80-100); Mean Platelet Volume 9.3 fl (7.4-10.4); Monocytes Absolute Auto 0.7 K/mm3 (0.1-0.6); Monocytes Percent Auto 6.6 % (2.6-8.5); Neutrophils Percent Auto 74.8 % (45.5-73.1); Platelet Count Result 293 k/mm3 (150-375); Red Blood Count 3.59 M/mm3 (4.2-5.4); Red Cell Distribution Width 14.6 % (11.5-14.5); White Blood Count 10.7 K/mm3 (4.5-10.0)
[2024-11-28 10:58] LABS: Anion Gap 10 mmol/L (4-12); Blood Urea Nitrogen 12 mg/dL (7-17); Calcium 8.8 mg/dL (8.4-10.2); Carbon Dioxide 27 mmol/L (22-30); Chloride 97 mmol/L (98-107); Estimated CRCL calculation 80 ml/min; Estimated Glomerular Filt Rate > 60; Glucose 156 mg/dL (65-110); Potassium 4.9 mmol/L (3.4-5.0); Sodium 134 mmol/L (137-145)
[2024-11-28 11:00] LABS: Prothrombin Time 13.6 Seconds (11.1-14.7)
--- NOTE | 2024-11-28 11:04 | ED_ITS ---
HPI - Extremity Problem General Chief complaint: Extremity Problem,Nontraumatic Stated complaint: R knee pain, edema Time Seen by Provider: 11/28/24 09:59 Source: patient Mode of arrival: EMS Limitations: no limitations History of Present Illness HPI Narrative: This is a 79-year-old female, with history of hypertension, diabetes and hyperlipidemia, who presents emergency department complaining of right knee and calf pain and swelling for the past day. The patient denies any known trauma. She complains of 5/10 dull pain. She denies chest pain, shortness of breath or loss of consciousness. She denies any known history of blood clots or any recent change in medications. She has no other complaints at this time. Related Data Home Medications ?Medication ?Instructions ?Recorded ?Confirmed ?Last Taken ?Type aspirin 81 mg tablet,delayed 81 mg PO DAILY 03/20/21 08/16/24 Unknown History release Allergies Allergy/AdvReac Type Severity Reaction Status Date / Time tramadol Allergy Mild ITCHING,HIV Verified 08/30/24 13:24 ES Review of Systems 2 Review of Systems: All systems reviewed & are unremarkable except as noted in HPI and below PMFSH Past Medical History Medical History Xerophthalmia Patellar sleeve fracture of right knee Dysuria UTI (urinary tract infection) Contact dermatitis Effusion of knee joint Right knee pain Knee fracture, right Insulin dependent diabetes mellitus Right hip pain Post-menopausal Neuropathy Depression Vitamin D deficiency Vertigo PAD (peripheral artery disease) Other and unspecified hyperlipidemia CHONG (obstructive sleep apnea) Mixed hyperlipidemia Essential hypertension Body mass index (BMI) 23 or greater (08/06/19) Balance disorder Diabetic peripheral neuropathy HTN (hypertension) Dementia Surgical History Surgical History History of ankle surgery left ankle and foot Family History Family History Sibling Hypertension Family history of diabetes mellitus in first degree relative Family history of malignant neoplasm of breast in first degree relative Family history of cardiovascular disease Mother Cerebrovascular accident Father Malignant neoplasm of prostate Patient's father is Family history of malignant neoplasm of urinary bladder, Onset Age: 75 Social History Social History Smoking packs per day: 0.25 Smoking cigarettes per day: 5.0 Years smoked: 2 Smoking pack-years: 0.50 Smoking status: Former smoker Smoking end date: 11/10/96 Alcohol intake: never Substance use: never Lack of Transportation: YES Lack of Food: Never True Current Housing: I Have Housing Concerned About Future Housing: No Difficulty Paying Gas/Electric Bills: YES Difficulty Paying for Meds: No Currently Unemployed: No Education: High School Diploma/GED Difficulty w/ Childcare or Family Care: No Occupation/Education: retired Gender identity (if verbalized by the patient): Female Spiritual care concerns: No Exam 2 Narrative: GENERAL: Well-developed, well-nourished, and in no acute distress. HEAD: Normocephalic, atraumatic. EYES: PERRLA and EOMI. CHEST: Clear to auscultation. No respiratory distress. No wheezes rales or rhonchi HEART: Regular rate and rhythm. No murmur heard. Normal peripheral pulses. EXTREMITIES: The right foreleg is edematous 1+ an enlarged compared to the left. No malleolar tenderness or knee pain on palpation. Passive dorsiflexion of the right foot elicits pain in the calf. Normal range of motion. No edema. SKIN: Warm, dry, no rash. NEURO: Alert and oriented x3. No focal deficit. Moving all 4 limbs spontaneously PSYCH: Normal mood and affect. Course Course Emergency Course: 15:05 - CBC demonstrates mildly elevated white blood cell count of 10.7 and anemia with hemoglobin of 9.8 that is decreased from her baseline of 12. Chemistries unremarkable. Ultrasound of the right lower extremity demonstrates a heterogenous mass without changes concerning for DVT. I obtain a CT angiogram of the leg to rule out hemorrhage. No active hemorrhage is noted no increased vascularity of an abnormal mass is concerning for malignancy. MRI recommended by Radiology. I discussed the findings with the patient with recommendation for primary care follow-up and imaging. Discussed return and emergency precautions including signs/symptoms of deep space infection and compartment syndrome. The patient voiced understanding and agreement with the plan. All questions answered to her satisfaction. Vital Signs Vital signs: Vital Signs Temperature 97.7 F 11/28/24 09:25 Pulse Rate 77 11/28/24 09:25 Respiratory Rate 14 11/28/24 09:25 Blood Pressure 171/77 H 11/28/24 09:25 Pulse Oximetry 99 11/28/24 09:25 Oxygen Delivery Room Air 11/28/24 09:25 Temperature 97.7 F 11/28/24 09:25 Pulse Rate 85 11/28/24 15:25 Respiratory Rate 18 11/28/24 15:25 Blood Pressure 135/66 11/28/24 15:25 Pulse Oximetry 96 11/28/24 15:25 Oxygen Delivery Room Air 11/28/24 10:30 MDM - Extremity (Nontraumatic) MDM Narrative Medical decision making narrative: Plan: Labs, imaging, reassess Differential Diagnosis Differential diagnosis: Likely other (DVT, lower extremity edema, other) Lab Data 11/28/24 10:43 11/28/24 10:43 Labs: Lab Results 11/28/24 Range/Units 10:43 WBC 10.7 H (4.5-10.0) K/mm3 RBC 3.59 L (4.2-5.4) M/mm3 Hgb 9.8 L (12.0-15.0) g/dL Hct 30.8 L (37.0-47.0) % MCV 85.8 (80-100) fl MCH 27.3 (26-34) pg MCHC 31.8 L (32-36) g/dl RDW 14.6 H (11.5-14.5) % Plt Count 293 (150-375) k/mm3 MPV 9.3 (7.4-10.4) fl Immature Gran % (Auto) 0.5 (0-0.5) % Neut % (Auto) 74.8 H (45.5-73.1) % Lymph % (Auto) 13.0 L (18.3-44.2) % [place] % (Auto) 6.6 (2.6-8.5) % Eos % (Auto) 4.6 H (0-4.4) % Baso % (Auto) 0.5 (0.2-1.2) % Lymph # (Auto) 1.39 (0.9-3.2) K/mm3 [place]osa # (Auto) 0.7 H (0.1-0.6) K/mm3 Eos # (Auto) 0.5 H (0-0.3) K/mm3 Baso # (Auto) 0.1 (0.0-0.1) K/mm3 Abs Immat Gran (auto) 0.05 H (0.00-0.031) K/mm3 Absolute Neuts (auto) 8.0 H (1.3-6.7) K/mm3 Absolute Nucleated RBC 0.000 (0.0-0.012) K/mm3 Nucleated RBC % 0.0 (0.0-0.2) % PT 13.6 (11.1-14.7) Seconds INR 1.0 Sodium 134 L (137-145) mmol/L Potassium 4.9 (3.4-5.0) mmol/L Chloride 97 L (98-107) mmol/L Carbon Dioxide 27 (22-30) mmol/L Anion Gap 10 (4-12) mmol/L BUN 12 (7-17) mg/dL Creatinine 0.44 L (0.7-1.0) mg/dL Estim Creat Clear Calc 80 ml/min Estimated GFR > 60 (59 - ) Glucose 156 H (65-110) mg/dL Calcium 8.8 (8.4-10.2) mg/dL Discharge Plan Discharge Clinical Impression: Acute pain of right lower extremity, Mass Patient Disposition: Home, Self-Care Condition: Stable Instructions: Antibiotic Form, Soft Tissue Mass (ED) Additional Instructions: You were seen in the emergency department. An ultrasound of the leg with not concerning for blood clot. A CT scan of the leg showed an abnormal attenuation and enlargement of the gastrocnemius muscle with increased vascularity, but without a discrete fluid collection identified. It is possible that this is a cancerous mass. Our radiologist recommend MRI. I recommend following up with your primary care doctor for imaging and possible biopsy. If you develop fevers with rapidly spreading redness and increasing pain, the foot or toes appeared blue/cold, or if you have other emergent concerns for life, limb, or eyesight, return to the emergency department. Patient Language: Turkish Prescriptions: New hydrocodone-acetaminophen 5-325 mg tablet 1 tablet PO HS PRN (Reason: pain) Qty: 10 0RF No Action aspirin 81 mg tablet,delayed release (DR/EC) 81 mg PO DAILY insulin glargine [Lantus Solostar U-100 Insulin] 100 unit/mL (3 mL) insulin pen 16 unit subcut QAM Qty: 15 0RF Jardiance 10 mg tablet 10 mg PO DAILY 90 Days Qty: 90 3RF Trulicity 0.75 mg/0.5 mL pen injector 0.75 mg subcut WEEKLY Qty: 2 3RF ibuprofen 600 mg tablet 600 mg PO TID PRN (Reason: pain) Qty: 20 0RF (DME) lancets [Accu-Chek Fastclix Lancet Drum] Misc See Rx Instructions .Route Qty: 300 3RF Rx Instructions: Use to test up to TID as directed (DME) insulin syringe-needle U-100 [Advocate Syringes] 1 mL 31 gauge x 5/16 syringe See Rx Instructions .Route Qty: 100 2RF Rx Instructions: As directed (DME) pen needle, diabetic [BD Betsey 2nd Gen Pen Needle] 32 gauge x 5/32 needle See Rx Instructions .Route Qty: 100 4RF Rx Instructions: As directed alcohol swabs [DropSafe Alcohol Prep Pads] Pads, Medicated See Rx Instructions .ROUTE .COMPLEX Qty: 300 2RF Dose Instruction: USE THREE TIMES DAILY DIRECTED Rx Instructions: USE THREE TIMES DAILY DIRECTED oxcarbazepine 150 mg tablet See Rx Instructions .ROUTE .COMPLEX Qty: 270 2RF Dose Instruction: TAKE 1 TABLET THREE TIMES DAILY Rx Instructions: TAKE 1 TABLET THREE TIMES DAILY escitalopram oxalate [Lexapro] 10 mg tablet 10 mg PO DAILY Qty: 90 2RF donepezil 10 mg tablet See Rx Instructions .ROUTE .COMPLEX Qty: 90 2RF Dose Instruction: TAKE 1 TABLET EVERY DAY Rx Instructions: TAKE 1 TABLET EVERY DAY amlodipine 10 mg tablet See Rx Instructions .ROUTE .COMPLEX Qty: 90 2RF Dose Instruction: TAKE 1 TABLET EVERY DAY Rx Instructions: TAKE 1 TABLET EVERY DAY metformin 500 mg tablet extended release 24 hr See Rx Instructions .ROUTE .COMPLEX Qty: 360 2RF Dose Instruction: TAKE 2 TABLETS TWICE DAILY Rx Instructions: TAKE 2 TABLETS TWICE DAILY omeprazole 20 mg capsule,delayed release(DR/EC) See Rx Instructions .ROUTE .COMPLEX Qty: 180 2RF Dose Instruction: TAKE 1 CAPSULE TWICE DAILY Rx Instructions: TAKE 1 CAPSULE TWICE DAILY gabapentin 300 mg capsule See Rx Instructions .ROUTE .COMPLEX Qty: 360 3RF Dose Instruction: TAKE 1 CAPSULE FOUR TIMES DAILY Rx Instructions: TAKE 1 CAPSULE FOUR TIMES DAILY (DME) Accu-Chek Guide test strips Strip See Rx Instructions .ROUTE .COMPLEX Qty: 300 3RF Dose Instruction: TEST BLOOD SUGAR UP TO THREE TIMES DAILY DIRECTED Rx Instructions: TEST BLOOD SUGAR UP TO THREE TIMES DAILY DIRECTED (DME) blood-glucose meter [Accu-Chek Guide Glucose Meter[place] [facility] [place] Instructions .Route Qty: 1 3RF Rx Instructions: Follow package directions pravastatin 80 mg tablet See Rx Instructions .ROUTE .COMPLEX Qty: 90 2RF Dose Instruction: TAKE 1 TABLET EVERY DAY Rx Instructions: TAKE 1 TABLET EVERY DAY lisinopril 40 mg tablet See Rx Instructions .ROUTE .COMPLEX Qty: 90 2RF Dose Instruction: TAKE 1 TABLET EVERY DAY Rx Instructions: TAKE 1 TABLET EVERY DAY Follow-up/Referrals: Jose Ross MD [Primary Care Provider] - 1 Week Time of Disposition: 15:06
--- OUTSIDE RECORDS SUMMARY | 2024-12-02 10:09 | XMS_ITS | Clinical Summary ---
Author Organization [facility] Address [address] [place] [address] Care Team Providers Care Double Cut Off Saw Operator Name Role Phone Jameson Patterson MD Primary Care Provider [phone] Kimberly Owen RN Unavailable [phone] Source Comments [facility],non-owned Affiliates and Associated Physician Practices is amultiple site organization consisting of ambulatory clinics and hospital sitesin [place], [place], [place] and [place]. This disclosure is being madepursuant to the Care Everywhere program and may not contain all information available regarding this patient. Last updated 18.[facility] Allergies Active Allergy Reactions Criticality Noted Date Comments Tramadol 09/23/2014 Medications * Be aware that medications may not be up to date on this document. Alwaysverify current medications with the patient. Medication Sig Dispensed Refills Start Date End Date Status gemfibrozil (LOPID) 600 MG tablet Take 600 mg by mouth 2 times daily,before breakfast and supper. Active insulin glargine (LANTUS) pen Inject 41 Units subcutaneously at bedtime. Active metFORMIN ER 24hr (GLUCOPHAGE XR) 500 MG tablet Take 1,000 mg by mouth 2 times daily. Active pravastatin (PRAVACHOL) 80 MG tablet Take 80 mg by mouth once daily. Active OXcarbazepine (TRILEPTAL) 150 MG tablet Take 450 mg by mouth at bedtime. Active lisinopril (PRINIVIL; ZESTRIL) 40 MG tablet Take 40 mg by mouth once daily. Active gabapentin (NEURONTIN) 600 MG tablet Take 600 mg by mouth 2 times daily. Active omeprazole (PRILOSEC) 20 MG capsule Take 20 mg by mouth 2 times daily,before breakfast and supper. Active acetaminophen (TYLENOL) 650 MG suppository Insert 1 Suppository into the rectum every 4 hours as needed. 09/29/2014 Active aspirin (ASPIRIN) 325 MG tablet Take 1 Tab by mouth once daily. 09/29/2014 Active venlafaxine (EFFEXOR) 37.5 MG tablet Take 1 Tab by mouth 2 times daily with morning and evening meal. 60 Tab 0 09/29/2014 Active amLODIPine (NORVASC) 10 MG tablet Take 1 Tab by mouth once daily. 30 Tab 0 09/29/2014 Active polyethylene glycol 3350 (MIRALAX) packet Take 17 g by mouth once daily as needed for Constipation. 09/29/2014 Active senna-docusate (SENOKOT-S) 8.6-50 MG tablet Take 1 Tab by mouth once daily as needed for Constipation. 60 Tab 0 09/29/2014 Active Active Problems Problem Noted Date Diagnosed Date CHF (congestive heart failure) 10/03/2014 Overview (10/03/2014): Added per clinical commissioning specialist per Dr. Vasquez note on 09/23 S/P PICC central line placement 09/29/2014 Overview (09/29/2014): [facility] VAT Abdominal pain, other specified site 09/23/2014 Assessment & Plan (09/23/2014 7:20 AM DATABASE TECHNICIAN): - Located in the lower back and radiating to the lower abdomen - CT abd not c/w pancreatitis, no obstruction - DDx will include UTI/Pyelo vs ischemic bowel Plan: - Continue IVF, Zosyn - LA trend - F/u CT abd/pelvis read Gram-negative sepsis 09/23/2014 Assessment & Plan (09/23/2014 4:20 PM DATABASE TECHNICIAN): - WBC, Hypotension, LA present on arrival - CXR wass clear, UA c/w UTI - on Zosyn for coverage of gram negatives and anerobes Plan: -f/u BC, UC, LA trend -Cont Zosyn Elevated troponin I level 09/23/2014 Assessment & Plan (09/23/2014 4:20 PM DATABASE TECHNICIAN): - Trop I leak, now downtrending - EKG: NSR, NSTWA, QT 511 - likely 2/2 demand ischemia vs NSTEMI Plan: - ASA 325(home dose continued), Statin Acute respiratory distress 09/23/2014 Assessment & Plan (09/23/2014 4:22 PM DATABASE TECHNICIAN): - Pt received up to 4.5L of IVF - In 4:30 am developed res distress with wheezing and inspiratory crackles bibasilar - Ddx: fluid overload vs compensation for met acidosis vs anxiety - Received 40 lasix, 125 of Solumedrol, breathing treatment(duoneb) - ABG with Acidosis 7.29, pCO2 33, Po2 99--> repeat ABG on bipap showed , CO2 34, HCO3 20, O2 111 Plan: - BipAP with 08/14--> switch to NC - diuresis as needed - transfer to ICU for closer monitoring Diabetes mellitus 09/23/2014 Assessment & Plan (09/23/2014 7:24 AM DATABASE TECHNICIAN): - Home meds need to be verified by pharmacy Plan: - Lantus 10 U, Accuchecks and SSI BERNY (acute kidney injury) 09/23/2014 Assessment & Plan (09/23/2014 7:23 AM DATABASE TECHNICIAN): - No Baseline Cr on file - was on IVF but stopped due to pulm edema Plan: - Hold lisinopril DVT prophylaxis 09/23/2014 Overview (02/09/2023): Regulatory Import 02/08/23 Assessment & Plan (09/23/2014 5:39 AM DATABASE TECHNICIAN): - Heparin TID HTN (hypertension) 09/23/2014 Assessment & Plan (09/23/2014 5:39 AM DATABASE TECHNICIAN): - Hold lisinopril HLD (hyperlipidemia) 09/23/2014 Assessment & Plan (09/23/2014 5:39 AM DATABASE TECHNICIAN): - Atorvastatin 40 mg Resolved Problems Problem Noted Date Diagnosed Date Resolved Date Pyelonephritis, acute 09/23/20142013 Immunizations Name Administration Dates Next Due INFLUENZA VACCINE, CELL CULT URE, TRIV. (FLUCELVAX TRIVALENT; 6MO+), 0.5 ML (CCIIV3) 09/24/2014 PNEUMOCOCCAL PPSV23 09/24/2014 Family History Medical History Relation Name Comments Other Brother Diabetes Maternal Grandfather Hypertension Maternal Grandfather Diabetes Maternal Grandmother Hypertension Maternal Grandmother Hypertension Paternal Grandfather Hypertension Paternal Grandmother CAD (Coronary Artery Disease) Sister Cancer Sister Relation Name Status Comments Brother Maternal Grandfather Maternal Grandmother Paternal Grandfather Paternal Grandmother Sister Social History Tobacco Use Types Packs/Day Years Used Date Smoking Tobacco: Never Alcohol Use Standard Drinks/Week Comments No 0 (1 standard drink = 0.6 oz pur e alcohol) Sex and Gender Information Value Date Recorded Sex Assigned at Not on file Gender Identity Not on file Sexual Orientation Not on file Last Filed Vital Signs Vital Sign Reading Time Taken Comments Blood Pressure 143/80 09/29/2014 4:27 PM DATABASE TECHNICIAN Pulse 79 09/29/2014 4:27 PM DATABASE TECHNICIAN Temperature 36.8 ??C (98.2 ??F) 09/29/2014 4:27 PM CS T Respiratory Rate 19 09/29/2014 4:27 PM DATABASE TECHNICIAN Oxygen Saturation 98% 09/29/2014 4:27 PM DATABASE TECHNICIAN Inhaled Oxygen Concentration 45% 09/23/2014 8 :43 AM DATABASE TECHNICIAN Weight 84.1 kg (185 lb 6.4 oz) 09/28/2014 4:32 A M DATABASE TECHNICIAN Height 157.5 cm (5' 2 ) 09/27/2014 1:12 AM DATABASE TECHNICIAN Body Mass Index 33.91 09/27/2014 1:12 AM DATABASE TECHNICIAN Plan of Treatment Health Maintenance Due Date Last Done Comments BONE DENSITY TESTING 1945 MEDICARE AWV ? 12 MONTHS 1945 HEPATITIS C SCREENING 04/05/1965 DTAP/TDAP/TD VACCINES (1 - Tdap) 1966 ZOSTER VACCINE (1 of 2) 1997 PNEUMOCOCCAL VACCINE 50+ (2 of 2 - PCV) 09/24/2015 09/24/2014 Respiratory Syncytial Virus (RSV) Vaccine Pt: or over 60 yrs (1 - 1-dose 75+ series) 2022 COVID-19 VACCINE ( - 2023-2 5 season) 2024 INFLUENZA VACCINE (#1) 2024 09/24/2014 DEPRESSION SCREENING 11/10/2024 HEPATITIS B VACCINE Aged Out No longe r eligible based on patient's age to complete this topic HIB VACCINE Aged Out No longer eligi ble based on patient's age to complete this topic HPV VACCINE Aged Out No longer eligi ble based on patient's age to complete this topic MENINGOCOCCAL (Group B) VACCINE Aged Out No longer eligible based on patient's age to complete this topic MENINGOCOCCAL VACCINE Aged Out No vignesh david eligible based on patient's age to complete this topic Advance Directives * LIMITED RESUSCITATION-PRIOR AND AFTER ARREST (Latest Code Status on File) Date Activated Date Inactivated Comments 09/23/2014 2:12 PM 09/29/2014 6:19 PM Question Answer Comments : NO CHEST COMPRESSION : NO DEFIBRILLATION * LIMITED RESUSCITATION-PRIOR AND AFTER ARREST Date Activated Date Inactivated Comments 09/23/2014 10:26 AM 09/23/2014 2:12 PM Question Answer Comments : NO CHEST COMPRESSION : NO DEFIBRILLATION * Full Code Date Activated Date Inactivated Comments 09/23/2014 5:05 AM 09/23/2014 10:26 AM Care Teams Double Cut Off Saw Operator Relationship Specialty Start Date End Date Jameson Patterson MD [address] [phone] PCP - General Internal Medicine 09/22/14 Kimberly Owen RN Cone Trucker 09/23/14
--- OUTSIDE RECORDS SUMMARY | 2024-12-02 10:09 | XMS_ITS | Referral Summary ---
Author Organization [facility] Address [address] [place] [address] Care Team Providers Care Lacquer Sizer Name Role Phone Jameson Patterson MD Primary Care Provider [phone] Kimberly Owen RN Unavailable [phone] Source Comments [facility],non-owned Affiliates and Associated Physician Practices is amultiple site organization consisting of ambulatory clinics and hospital sitesin [place], [place], [place] and [place]. This disclosure is being madepursuant to the Care Everywhere program and may not contain all information available regarding this patient. Last updated 18.[facility] Allergies Active Allergy Reactions Criticality Noted Date [...] failure) 10/03/2014 Overview (10/03/2014): Added per clinical copy center specialist per Dr. Vasquez note on 09/23 S/P PICC central line placement 09/29/2014 Overview (09/29/2014): [facility] VAT Abdominal pain, other specified site 09/23/2014 Assessment & Plan (09/23/2014 7:20 AM COST COORDINATOR): - Located in the lower back and radiating to the lower abdomen - CT abd not c/w pancreatitis, no obstruction - DDx will include UTI/Pyelo vs ischemic bowel Plan: - Continue IVF, Zosyn - LA trend - F/u CT abd/pelvis read Gram-negative sepsis 09/23/2014 Assessment & Plan (09/23/2014 4:20 PM COST COORDINATOR): - WBC, Hypotension, LA present on arrival - CXR wass clear, UA c/w UTI - on Zosyn for coverage of gram negatives and anerobes Plan: -f/u BC, UC, LA trend -Cont Zosyn Elevated troponin I level 09/23/2014 Assessment & Plan (09/23/2014 4:20 PM COST COORDINATOR): - Trop I leak, now downtrending - EKG: NSR, NSTWA, QT 511 - likely 2/2 demand ischemia vs NSTEMI Plan: - ASA 325(home dose continued), Statin Acute respiratory distress 09/23/2014 Assessment & Plan (09/23/2014 4:22 PM COST COORDINATOR): - Pt received up to 4.5L of [...] 09/23/2014 Assessment & Plan (09/23/2014 7:24 AM COST COORDINATOR): - Home meds need to be verified by pharmacy Plan: - Lantus 10 U, Accuchecks and SSI BERNY (acute kidney injury) 09/23/2014 Assessment & Plan (09/23/2014 7:23 AM COST COORDINATOR): - No Baseline Cr on file - was on IVF but stopped due to pulm edema Plan: - Hold lisinopril DVT prophylaxis 09/23/2014 Overview (02/09/2023): Regulatory Import 02/08/23 Assessment & Plan (09/23/2014 5:39 AM COST COORDINATOR): - Heparin TID HTN (hypertension) 09/23/2014 Assessment & Plan (09/23/2014 5:39 AM COST COORDINATOR): - Hold lisinopril HLD (hyperlipidemia) 09/23/2014 Assessment & Plan (09/23/2014 5:39 AM COST COORDINATOR): - Atorvastatin 40 mg Resolved Problems Problem Noted Date Diagnosed Date Resolved Date Pyelonephritis, acute 09/23/20142013 Immunizations Name Administration Dates Next Due INFLUENZA VACCINE, CELL CULT URE, TRIV. (FLUCELVAX TRIVALENT; 6MO+), 0.5 ML (CCIIV3) 09/24/2014 PNEUMOCOCCAL PPSV23 09/24/2014 Social History Tobacco Use Types Packs/Day Years [...] Comments Blood Pressure 143/80 09/29/2014 4:27 PM COST COORDINATOR Pulse 79 09/29/2014 4:27 PM COST COORDINATOR Temperature 36.8 ??C (98.2 ??F) 09/29/2014 4:27 PM CS T Respiratory Rate 19 09/29/2014 4:27 PM COST COORDINATOR Oxygen Saturation 98% 09/29/2014 4:27 PM COST COORDINATOR Inhaled Oxygen Concentration 45% 09/23/2014 8 :43 AM COST COORDINATOR Weight 84.1 kg (185 lb 6.4 oz) 09/28/2014 4:32 A M COST COORDINATOR Height 157.5 cm (5' 2 ) 09/27/2014 1:12 AM COST COORDINATOR Body Mass Index 33.91 09/27/2014 1:12 AM COST COORDINATOR Functional Status Functional Status Response Date of Assess ment Is person deaf or have serious hearing difficult y? Yes 09/29/2014 Is person blind or have serious difficulty seein g? No 09/23/2014 Does person have serious dif ficulty walking/climbing stairs? No 09/29/2014 Does person have difficulty dressing/bathing? No 09/29/2014 Does person have difficulty doing errands alone? No 09/29/2014 Cognitive Status Response Date of Assessm ent Does person have difficulty concentrating/remembering/making decisions? Yes 09/29/2014 Plan of Treatment Not on file Advance Directives * LIMITED RESUSCITATION-PRIOR AND AFTER [...] 5:05 AM 09/23/2014 10:26 AM Care Teams Lacquer Sizer Relationship Specialty Start Date End Date Jameson Patterson MD [address] [phone] PCP - General Internal Medicine 09/22/14 Kimberly Owen, RN Facilities Flight Check Pilot 09/23/14
--- OUTSIDE RECORDS SUMMARY | 2024-12-02 10:10 | XMS_ITS | Continuity of Care Document ---
Author Organization [facility] Address [id number] [place] [address] [place] [address] Phone Care Team Providers Care Gas Pipe Layer Name Role Phone Hans Iraheta DO Unavailable Unavailable Advance Directives Directive Yes / No Effective Date File Name No Information Encounters Encounter Description Practice Location Reason(s) For Visit Diagnoses Date Provider Providers Copied on Encounter [facility], [id number] [place] [address] [address], [place], [place], [id number], tel:[phone] [facility] No Information Myrtle Jaeger. [address] [place], [address], [place]. tel:[phone] Family History Family Member Type Diagnosis Age At Onset No Information Payers Payer name Insurance type Covered democrat ID Authoriza tion(s) No Information Social History Type Description Quantity Date Captured Comments Sex Female Smoking Status No Information Chief Complaint And Reason For Visit No Information Reason For Referral Reason For Referral No Information History Of Present Illness Encounter Date Complaint History Of Prese nt Illness No Information Functional Status Date Functional Assessmen t No Information Instructions Date Instruction Additional Infor mation No Information Assessments Type Assessment Date No Information Patient Care Teams Name Effective Dates (start - stop) Status Members No Information
--- OUTSIDE RECORDS SUMMARY | 2024-12-02 10:10 | XMS_ITS | Patient Health Summary ---
Author Organization [facility] Address [address] [place] [address] Care Team Providers Care Baker Apprentice Name Role Phone Jameson Patterson MD Primary Care Provider [phone] Kimberly Owen RN Unavailable [phone] Note from [facility],non-owned Affiliates and Associated Physician Practices is amultiple site organization consisting of ambulatory clinics and hospital sitesin [place], [place], [place] and [place]. This disclosure is being madepursuant to the Care Everywhere program and may not contain all information available regarding this patient. Last updated 18.[facility] Allergies * Tramadol Medications * Be aware that medications may not be up to date on this document. Alwaysverify current medications with the patient. * gemfibrozil (LOPID) 600 MG tablet Take 600 mg by mouth 2 times daily,before breakfast and supper. * insulin glargine (LANTUS) pen Inject 41 Units subcutaneously at bedtime. * metFORMIN ER 24hr (GLUCOPHAGE XR) 500 MG tablet Take 1,000 mg by mouth 2 times daily. * pravastatin (PRAVACHOL) 80 MG tablet Take 80 mg by mouth once daily. * OXcarbazepine (TRILEPTAL) 150 MG tablet Take 450 mg by mouth at bedtime. * lisinopril (PRINIVIL; ZESTRIL) 40 MG tablet Take 40 mg by mouth once daily. * gabapentin (NEURONTIN) 600 MG tablet Take 600 mg by mouth 2 times daily. * omeprazole (PRILOSEC) 20 MG capsule Take 20 mg by mouth 2 times daily,before breakfast and supper. * acetaminophen (TYLENOL) 650 MG suppository(Started 09/29/2014) Insert 1 Suppository into the rectum every 4 hours as needed. * aspirin (ASPIRIN) 325 MG tablet(Started 09/29/2014) Take 1 Tab by mouth once daily. * venlafaxine (EFFEXOR) 37.5 MG tablet(Started 09/29/2014) Take 1 Tab by mouth 2 times daily with morning and evening meal. * amLODIPine (NORVASC) 10 MG tablet(Started 09/29/2014) Take 1 Tab by mouth once daily. * polyethylene glycol 3350 (MIRALAX) packet(Started 09/29/2014) Take 17 g by mouth once daily as needed for Constipation. * senna-docusate (SENOKOT-S) 8.6-50 MG tablet(Started 09/29/2014) Take 1 Tab by mouth once daily as needed for Constipation. Active Problems Problem Noted Date Diagnosed Date CHF (congestive heart failure) 10/03/2014 S/P PICC central line placement 09/29/2014 Abdominal pain, other specified site 09/23/2014 Gram-negative sepsis 09/23/2014 Elevated troponin I level 09/23/2014 Acute respiratory distress 09/23/2014 Diabetes mellitus 09/23/2014 BERNY (acute kidney injury) 09/23/2014 DVT prophylaxis 09/23/2014 HTN (hypertension) 09/23/2014 HLD (hyperlipidemia) 09/23/2014 Resolved Problems Problem Noted Date Diagnosed Date Resolved Date Pyelonephritis, acute 09/23/20142013 Immunizations * INFLUENZA VACCINE, CELL CULTURE, TRIV. (FLUCELVAX TRIVALENT; 6MO+), 0.5 ML (CCIIV3)(Given 09/24/2014) * PNEUMOCOCCAL PPSV23(Given 09/24/2014) Social History Tobacco Use Types Packs/Day Years [...] Comments Blood Pressure 143/80 09/29/2014 4:27 PM HEAVY LINE TECHNICIAN Pulse 79 09/29/2014 4:27 PM HEAVY LINE TECHNICIAN Temperature 36.8 ??C (98.2 ??F) 09/29/2014 4:27 PM CS T Respiratory Rate 19 09/29/2014 4:27 PM HEAVY LINE TECHNICIAN Oxygen Saturation 98% 09/29/2014 4:27 PM HEAVY LINE TECHNICIAN Inhaled Oxygen Concentration 45% 09/23/2014 8 :43 AM HEAVY LINE TECHNICIAN Weight 84.1 kg (185 lb 6.4 oz) 09/28/2014 4:32 A M HEAVY LINE TECHNICIAN Height 157.5 cm (5' 2 ) 09/27/2014 1:12 AM HEAVY LINE TECHNICIAN Body Mass Index 33.91 09/27/2014 1:12 AM HEAVY LINE TECHNICIAN Procedures * IMAGING/RADIOLOGY/XRAY RESULTS ORDER(Performed 09/30/2014) * LAB RESULTS ORDER(Performed 09/30/2014) * CARDIAC RHYTHM STRIP ORDER(Performed 09/30/2014) * XR CHEST POST PROCEDURE(Performed 09/29/2014) Performed for Fitting and adjustment of vascular catheter * GLUCOSE - POINT OF CARE(Performed 09/29/2014) * GLUCOSE - POINT OF CARE(Performed 09/29/2014) * BASIC METABOLIC PANEL (CALCIUM TOTAL)(Performed 09/29/2014) * CBC W AUTO DIFFERENTIAL(Performed 09/29/2014) * GLUCOSE - POINT OF CARE(Performed 09/28/2014) * GLUCOSE - POINT OF CARE(Performed 09/28/2014) * ECHOCARDIOGRAM TRANSESOPHAGEAL(Performed 09/28/2014) Performed for Fever, Hypotension, Diaphoresis, Abdominal pain, generalized, Lactic acid acidosis, Leukocytosis, Anemia, Sepsis (HCC), Pyelonephritis, unspecified, Acute coronary syndrome (HCC), SOB (shortness of breath), Acute respiratory distress, Abdominal pain, other specified site, Gram-negative sepsis (HCC), Elevated troponin I level, Diabetes mellitus (HCC), BERNY (acute kidney injury) ([facility]),DVT prophylaxis, HTN (hypertension), HLD (hyperlipidemia) * GLUCOSE - POINT OF CARE(Performed 09/28/2014) * DIFFERENTIAL MANUAL(Performed 09/28/2014) * BASIC METABOLIC PANEL (CALCIUM TOTAL)(Performed 09/28/2014) * CBC W AUTO DIFFERENTIAL(Performed 09/28/2014) * GLUCOSE - POINT OF CARE(Performed 09/27/2014) * GLUCOSE - POINT OF CARE(Performed 09/27/2014) * BASIC METABOLIC PANEL (CALCIUM TOTAL)(Performed 09/27/2014) * CBC W AUTO DIFFERENTIAL(Performed 09/27/2014) * GLUCOSE - POINT OF CARE(Performed 09/26/2014) * GLUCOSE - POINT OF CARE(Performed 09/26/2014) * GLUCOSE - POINT OF CARE(Performed 09/26/2014) * GLUCOSE - POINT OF CARE(Performed 09/26/2014) * MAGNESIUM BLOOD(Performed 09/26/2014) * BASIC METABOLIC PANEL (CALCIUM TOTAL)(Performed 09/26/2014) * CBC W AUTO DIFFERENTIAL(Performed 09/26/2014) * GLUCOSE - POINT OF CARE(Performed 09/25/2014) * GLUCOSE - POINT OF CARE(Performed 09/25/2014) * BASIC METABOLIC PANEL (CALCIUM TOTAL)(Performed 09/25/2014) * CBC W AUTO DIFFERENTIAL(Performed 09/25/2014) * CULTURE BLOOD(Performed 09/25/2014) * CULTURE BLOOD(Performed 09/25/2014) * GLUCOSE - POINT OF CARE(Performed 09/25/2014) * XR CHEST 1VW PORTABLE(Performed 09/25/2014) Performed for Acute respiratory distress * GLUCOSE - POINT OF CARE(Performed 09/25/2014) * GLUCOSE - POINT OF CARE(Performed 09/24/2014) * GLUCOSE - POINT OF CARE(Performed 09/24/2014) * GLUCOSE - POINT OF CARE(Performed 09/24/2014) * GLUCOSE - POINT OF CARE(Performed 09/24/2014) * HEMOGLOBIN A1C(Performed 09/24/2014) * MAGNESIUM BLOOD(Performed 09/24/2014) * RENAL FUNCTION PANEL(Performed 09/24/2014) * CBC W AUTO DIFFERENTIAL(Performed 09/24/2014) * LACTIC ACID BLOOD(Performed 09/24/2014) * GLUCOSE - POINT OF CARE(Performed 09/24/2014) * GLUCOSE - POINT OF CARE(Performed 09/23/2014) * GLUCOSE - POINT OF CARE(Performed 09/23/2014) * CULTURE BLOOD(Performed 09/23/2014) * CULTURE MRSA(Performed 09/23/2014) * CULTURE BLOOD(Performed 09/23/2014) * CULTURE VRE(Performed 09/23/2014) * CULTURE MRSA(Performed 09/23/2014) * GLUCOSE - POINT OF CARE(Performed 09/23/2014) * GLUCOSE - POINT OF CARE(Performed 09/23/2014) * ECHOCARDIOGRAM 2D WITH DOPPLER(Performed 09/23/2014) Performed for Acute respiratory distress * GLUCOSE - POINT OF CARE(Performed 09/23/2014) * CULTURE BLOOD(Performed 09/23/2014) * CULTURE BLOOD(Performed 09/23/2014) * BASIC METABOLIC PANEL (CALCIUM TOTAL)(Performed 09/23/2014) * CBC W AUTO DIFFERENTIAL(Performed 09/23/2014) * B-TYPE NATRIURETIC PEPTIDE(Performed 09/23/2014) * TROPONIN I(Performed 09/23/2014) * LACTIC ACID BLOOD(Performed 09/23/2014) * BLOOD GASES ARTERIAL(Performed 09/23/2014) * XR CHEST 1VW PORTABLE(Performed 09/23/2014) Performed for SOB (shortness of breath) * GLUCOSE - POINT OF CARE(Performed 09/23/2014) * URINE MICROSCOPIC ONLY REFLEX TO CULTURE(Performed 09/23/2014) * URINALYSIS REFLEX MICROSCOPIC REFLEX CULTURE(Performed 09/23/2014) * CULTURE URINE(Performed 09/23/2014) * CT ABDOMEN PELVIS W CONTRAST(Performed 09/22/2014) Performed for Fever, Hypotension, Diaphoresis, Abdominal pain, generalized * LIPASE BLOOD(Performed 09/22/2014) * TROPONIN I(Performed 09/22/2014) * PHOSPHORUS BLOOD(Performed 09/22/2014) * MAGNESIUM BLOOD(Performed 09/22/2014) * COMPREHENSIVE METABOLIC PANEL(Performed 09/22/2014) * DIFFERENTIAL MANUAL(Performed 09/22/2014) * PTT(Performed 09/22/2014) * PT-INR(Performed 09/22/2014) * LACTIC ACID BLOOD(Performed 09/22/2014) * CBC W MANUAL DIFFERENTIAL(Performed 09/22/2014) * CULTURE BLOOD(Performed 09/22/2014) * CULTURE BLOOD(Performed 09/22/2014) * EKG 12-LEAD(Performed 09/22/2014) Performed for Fever, Hypotension * XR CHEST 1VW PORTABLE(Performed 09/22/2014) Performed for Fever, Hypotension Results * IMAGING/RADIOLOGY/XRAY RESULTS ORDER (09/30/2014 10:13 PM HEAVY LINE TECHNICIAN) Anatomical Region Laterality Modality Other Narrative 09/30/2014 10:13 PM HEAVY LINE TECHNICIAN Ordered by an unspecified provider. Scanned Document IMAGING * LAB RESULTS ORDER (09/30/2014 10:13 PM HEAVY LINE TECHNICIAN) Narrative 09/30/2014 10:13 PM HEAVY LINE TECHNICIAN Ordered by an unspecified provider. Scanned Document LAB - THERAPEUTIC DR UG MONITORING ORDERABLES * CARDIAC RHYTHM STRIP ORDER (09/30/2014 10:12 PM HEAVY LINE TECHNICIAN) Narrative 09/30/2014 10:12 PM HEAVY LINE TECHNICIAN Ordered by an unspecified provider. Scanned Document CARDIAC SERVICES ORD ERABLES * XR CHEST FOR PICC PLMT (Place order AFTER PICC line is inserted) (09/29/2014 12:38 PM HEAVY LINE TECHNICIAN) Anatomical Region Laterality Modality Radiographic Romy ging 09/29/2014 12:4 0 PM HEAVY LINE TECHNICIAN Impressions 09/29/2014 12:41 PM HEAVY LINE TECHNICIAN PICC line in superior vena cava. Narrative 09/29/2014 12:41 PM HEAVY LINE TECHNICIAN Chest x-ray PICC line placement. History: PICC line. Single view of the chest is compared to a prior exam of 09/25. Right-sided PICC line tip projects in the superior vena cava. Heart size is stable. Lungs are clear. Procedure Note Mayo Almodovar MD - 09/29/2014 Chest x-ray PICC line placement. History: PICC line. Single view of the chest is compared to a prior exam of 09/25. Right-sided PICC line tip projects in the superior vena cava. Heart size is stable. Lungs are clear. IMPRESSION PICC line in superior vena cava. Daniela Geronimo MD DIAGNOSTIC IMAGING O RDERABLES * (ABNORMAL) GLUCOSE - POINT OF CARE (09/29/2014 11:47 AM HEAVY LINE TECHNICIAN) Only the most recent of29 resultswithin the time period is included. [facility] Glucose WB/POC 259(H) 70 - 106 mg/dL 10/01/2014 9:47 PM HEAVY LINE TECHNICIAN [facility] Blood BLOOD SPECIMEN / Unknown 09/29/2014 11:47 AM HEAVY LINE TECHNICIAN 10/01/2014 9:47 PM HEAVY LINE TECHNICIAN Daniela Geronimo MD LAB - POINT OF CARE ORDERABLES [facility] [address] [place] [address] * (ABNORMAL) CBC W AUTO DIFFERENTIAL (09/29/2014 5:07 AM HEAVY LINE TECHNICIAN) Only the most recent of7 resultswithin the time period is included. [facility] WBC 11.4(H) 4.4 - 10.7 x10^9/L 09/29/2014 6:[address] [facility] RBC 3.62(L) 3.80 - 5.20 x10^12/L 09/29/2014 6:[address] [facility] Hemoglobin 9.8(L) 12.0 - 15.6 gm/dL 09/29/2014 6:[address] [facility] Hematocrit 29.5(L) 35.9 - 45.5 % 09/29/2014 6:[address] [facility] MCV 81.5 80.7 - 98.3 fl 09/29/2014 6:[address] [facility] MCH 27.1 26.7 - 34.0 pg 09/29/2014 6:[address] [facility] MCHC 33.2 30.8 - 35.9 gm/dL 09/29/2014 6:[address] [facility] Platelet Count 342 153 - 416 x10^9/L 09/29/2014 6:[address] [facility] RDW-CV 14.5 12.1 - 14.9 % 09/29/2014 6:[address] [facility] MPV 10.0 9.4 - 12.9 fl 09/29/2014 6:[address] [facility] Neutrophils % 63.2 44.0 - 73.0 % 09/29/2014 6:[address] [facility] Lymphocytes % 23.2 20.0 - 43.0 % 09/29/2014 6:[address] [facility] Monocytes % 7.2 5.0 - 13.0 % 09/29/2014 6:[address] [facility] Eosinophils % 3.7 0.0 - 6.0 % 09/29/2014 6:[address] [facility] Basophils % 0.8 0.0 - 2.0 % 09/29/2014 6:[address] [facility] Immature Granulocytes 1.9(H) 0 - 1 % 09/29/2014 6:[address] [facility] Neutrophil Absolute 7.20(H) 2.01 - 7.14 x10^9/L 09/29/2014 6:[address] [facility] Lymphocytes Absolute 2.64 1.07 - 3.94 x10^9/L 09/29/2014 6:[address] [facility] Monocytes Absolute 0.82 0.26 - 1.07 x10^9/L 09/29/2014 6:[address] [facility] Eosinophils Absolute 0.42 0 - 0.47 x10^9/L 09/29/2014 6:[address] [facility] Basophils Absolute 0.09(H) 0 - 0.08 x10^9/L 09/29/2014 6:[address] [facility] Immature Granulocytes Absolute 0.22(H) 0.00 - 0.06 x10^9/L 09/29/2014 6:[address] [facility] nRBC Auto 0 /100 WBC 09/29/2014 6:[address] [facility] Blood BLOOD SPECIMEN / Unknown Lab Venipuncture / Unknown 09/29/2014 5:07 AM HEAVY LINE TECHNICIAN 09/29/2014 5:[address] [facility] Bushra Gan MD LAB - HEMATOLOGY ORD ERABLES [facility] [address] [place] [address] * (ABNORMAL) BASIC METABOLIC PANEL (CALCIUM TOTAL) (09/29/2014 5:[address] [facility]) Only the most recent of6 resultswithin the time period is included. Glucose 145(H) 74 - 106 mg/dL 09/29/2014 5:[address] [facility] Sodium 140 136 - 145 mmol/L 09/29/2014 5:[address] [facility] Potassium 3.6 3.5 - 5.1 mmol/L 09/29/2014 5:[address] [facility] Chloride 101 98 - 107 mmol/L 09/29/2014 5:[address] [facility] CO2 30 22 - 31 mmol/L 09/29/2014 5:[address] [facility] Calcium 8.9 8.5 - 10.1 mg/dL 09/29/2014 5:[address] [facility] Anion Gap 9 5 - 15 mmol/L 09/29/2014 5:[address] [facility] BUN 10 7 - 21 mg/dL 09/29/2014 5:[address] [facility] Creatinine 0.52 0.50 - 1.30 mg/dL 09/29/2014 5:[address] [facility] eGFR by MDRD >60 >60 mL/min/1.7 3m2 09/29/2014 5:38 AM HEAVY LINE TECHNICIAN [facility] eGFR by MDRD >60 >60 mL/min/1.7 3m2 09/29/2014 5:38 AM HEAVY LINE TECHNICIAN [facility] Blood BLOOD SPECIMEN / Unknown Lab Venipuncture / Unknown 09/29/2014 5:07 AM HEAVY LINE TECHNICIAN 09/29/2014 5:17 AM HEAVY LINE TECHNICIAN Bushra Gan MD LAB - CHEMISTRY RUIZ SUÁREZ [facility] [address] [place] [address] * ECHO JUDITH (09/28/2014 8:29 AM HEAVY LINE TECHNICIAN) 09/28/2014 8:29 AM HEAVY LINE TECHNICIAN Narrative [facility] - 09/29/2014 5:33 PM HEAVY LINE TECHNICIAN Transesophageal Echocardiogram 2D, Doppler, and Color Doppler Patient: MIRTA PARNELL MR number: [id number] Height: Weight: BSA: Study date: 28-Sep-2014 : 1945 Age: 69 years Gender: Female Race: Allergies: TRAMADOL Reading Physician: ??Albina Vasquez, DO Referring Physician: ??Bushra Gan MD Prize Jacker: ??Kristin Hernandez [facility] Performing Physician: ??Albina Vasquez, DO Impressions: There was no echocardiographic evidence for valvular vegetation. Summary: - ??Clinical question: - ??Bacteremia - ??Left ventricle: - ??Systolic function was normal. Ejection fraction was estimated to be 60 %. - ??There were no regional wall motion abnormalities. - ??Wall thickness was normal. - ??Aortic valve: - ??There was no evidence for vegetation. - ??Mitral valve: - ??There was mild regurgitation. - ??There was no evidence for vegetation. - ??Atrial septum: - ??Contrast injection was performed. There was no ceecy-tp-kigq shunt, with provocative maneuvers to increase right atrial pressure. - ??Impressions: - ??There was no echocardiographic evidence for valvular vegetation. Indications: Bacteremia Procedure: The procedure was performed in the echo lab. This was a routine study. Sedation: 4 Mg IV Versed 50 mcg IV Fentanyl Procedure: The transesophageal probe was inserted into the esophagus, then into the fundus of the stomach without complication. The heart was examined in multiplane views. Color flow and pulse wave doppler was performed. The thoracic aorta was examined from the fundus of the stomach to the aortic arch. The transesophageal approach was used. The study included complete 2D imaging, limited spectral Doppler, and color Doppler. Systolic blood pressure was 156 mmHg. Diastolic blood pressure was 77 mmHg. There were no complications during the procedure. Left ventricle: Size was normal. Systolic function was normal. Ejection fraction was estimated to be 60 %. There were no regional wall motion abnormalities. Wall thickness was normal. Aortic valve: The valve was trileaflet. Leaflets exhibited normal thickness and normal cuspal separation. There was no evidence for vegetation. Doppler: There was no regurgitation. Aorta: The root exhibited normal size. There was no atheroma. There was no evidence for dissection. There was no evidence for aneurysm. Mitral valve: Valve structure was normal. There was normal leaflet separation. There was no evidence for vegetation. Doppler: The transmitral velocity was within the normal range. There was no evidence for stenosis. There was mild regurgitation. Left atrium: Size was normal. No thrombus was identified. Appendage: The size was normal. The function was normal (normal emptying velocity). No thrombus was identified. Atrial septum: No defect or patent foramen ovale was identified. Contrast injection was performed. There was no zpziq-sa-ouqs shunt, with provocative maneuvers to increase right atrial pressure. Right ventricle: The size was normal. Systolic function was normal. Wall thickness was normal. Pulmonic valve: Leaflets exhibited normal thickness, no calcification, and normal cuspal separation. There was no evidence for vegetation. Doppler: There was no regurgitation. Tricuspid valve: The valve structure was normal. There was normal leaflet separation. There was no evidence for vegetation. Doppler: There was no regurgitation. Right atrium: Size was normal. No thrombus was identified. Pericardium: The pericardium was normal in appearance. Impressions: There was no echocardiographic evidence for valvular vegetation. Prepared and signed by Albina Vasquez DO Signed 29-Sep-2014 17:32:38 Procedure Note Albina Vasquez DO - 09/29/2014 Transesophageal Echocardiogram 2D, Doppler, and Color Doppler Patient: MIRTA PARNELL MR number: [id number] Height: Weight: BSA: Study date: 28-Sep-2014 : 1945 Age: 69 years Gender: Female Race: Allergies: TRAMADOL Reading Physician: Albina Vasquez DO Referring Physician: Bushra Gan MD Prize Jacker: Kristin Hernandez [facility] Performing Physician: Albina Vasquez DO Impressions: There was no echocardiographic evidence for valvular vegetation. Summary: - Clinical question: - Bacteremia - Left ventricle: - Systolic function was normal. Ejection fraction was estimated to be 60 %. - There were no regional wall motion abnormalities. - Wall thickness was normal. - Aortic valve: - There was no evidence for vegetation. - Mitral valve: - There was mild regurgitation. - There was no evidence for vegetation. - Atrial septum: - Contrast injection was performed. There was no rhogv-vz-ybwr shunt, with provocative maneuvers to increase right atrial pressure. - Impressions: - There was no echocardiographic evidence for valvular vegetation. Indications: Bacteremia Procedure: The procedure was performed in the echo lab. This was a routine study. Sedation: 4 Mg IV Versed 50 mcg IV Fentanyl Procedure: The transesophageal probe was inserted into the esophagus, then into the fundus of the stomach without complication. The heart was examined in multiplane views. Color flow and pulse wave doppler was performed. The thoracic aorta was examined from the fundus of the stomach to the aortic arch. The transesophageal approach was used. The study included complete 2D imaging, limited spectral Doppler, and color Doppler. Systolic blood pressure was 156 mmHg. Diastolic blood pressure was 77 mmHg. There were no complications during the procedure. Left ventricle: Size was normal. Systolic function was normal. Ejection fraction was estimated to be 60 %. There were no regional wall motion abnormalities. Wall thickness was normal. Aortic valve: The valve was trileaflet. Leaflets exhibited normal thickness and normal cuspal separation. There was no evidence for vegetation. Doppler: There was no regurgitation. Aorta: The root exhibited normal size. There was no atheroma. There was no evidence for dissection. There was no evidence for aneurysm. Mitral valve: Valve structure was normal. There was normal leaflet separation. There was no evidence for vegetation. Doppler: The transmitral velocity was within the normal range. There was no evidence for stenosis. There was mild regurgitation. Left atrium: Size was normal. No thrombus was identified. Appendage: The size was normal. The function was normal (normal emptying velocity). No thrombus was identified. Atrial septum: No defect or patent foramen ovale was identified. Contrast injection was performed. There was no asboz-uv-vzcx shunt, with provocative maneuvers to increase right atrial pressure. Right ventricle: The size was normal. Systolic function was normal. Wall thickness was normal. Pulmonic valve: Leaflets exhibited normal thickness, no calcification, and normal cuspal separation. There was no evidence for vegetation. Doppler: There was no regurgitation. Tricuspid valve: The valve structure was normal. There was normal leaflet separation. There was no evidence for vegetation. Doppler: There was no regurgitation. Right atrium: Size was normal. No thrombus was identified. Pericardium: The pericardium was normal in appearance. Impressions: There was no echocardiographic evidence for valvular vegetation. Prepared and signed by Albina Vasquez DO Signed 29-Sep-2014 17:32:38 Bushra Gan MD ECHO ORDERABLES Performing Organization Address City/State/[facility] [[email or web address] Co de Phone Number [facility] [address] [place] [address] * (ABNORMAL) DIFFERENTIAL MANUAL (09/28/2014 5:47 AM HEAVY LINE TECHNICIAN) Only the most recent of2 resultswithin the time period is included. WBC Auto 11.3 x10^9/L 09/28/2014 6:[address] [facility] Neutrophil % Manual 63 44 - 73 % 09/28/2014 6:[address] [facility] Lymphocytes % Manual 24 20 - 43 % 09/28/2014 6:[address] [facility] Monocytes % Manual 3(L) 5 - 13 % 09/28/2014 6:[address] [facility] Eosinophils % Manual 7(H) 0 - 6 % 09/28/2014 6:[address] [facility] Band % Manual 3 0 - 11 % 09/28/2014 6:[address] [facility] Cells Counted 100 # cells 09/28/2014 6:[address] [facility] RBC Morphology Normal 09/28/2014 6:[address] [facility] WBC Morph Normal 09/28/2014 6:35 AM HEAVY LINE TECHNICIAN [facility] Blood BLOOD SPECIMEN / Unknown Lab Venipuncture / Unknown 09/28/2014 5:47 AM HEAVY LINE TECHNICIAN 09/28/2014 5:55 AM HEAVY LINE TECHNICIAN Bushra Gan MD LAB - HEMATOLOGY ORD ERABLES Performing Organization Address [facility] [[email or web address] Co de Phone Number [facility] [address] [place] [phone] * (ABNORMAL) MAGNESIUM BLOOD (09/26/2014 5:59 AM HEAVY LINE TECHNICIAN) Only the most recent of3 resultswithin the time period is included. Magnesium 1.3(L) 1.6 - 2.6 mg/dL 09/26/2014 8:13 AM HEAVY LINE TECHNICIAN [facility] Blood BLOOD SPECIMEN / Unknown 09/26/2014 5:59 AM HEAVY LINE TECHNICIAN 09/26/2014 8:01 AM HEAVY LINE TECHNICIAN Bushra Gan MD LAB - CHEMISTRY ADRIANAE JOSE ARMANDO Performing Organization Address [facility] [[email or web address] Co de Phone Number [facility] [address] [place] [phone] * CULTURE BLOOD (09/25/2014 12:23 PM HEAVY LINE TECHNICIAN) Only the most recent of8 resultswithin the time period is included. Culture No Growth SHERLYN 10/01/2014 4:35 AM HEAVY LINE TECHNICIAN [facility] Blood PERIPHERAL BLOOD / Unknown Lab Venipuncture / Unknown 09/25/2014 12:23 PM HEAVY LINE TECHNICIAN 09/25/2014 12:28 PM HEAVY LINE TECHNICIAN Bushra Gan MD LAB - MICROBIOLOGY O RDERABLES Performing Organization Address City/[facility] [[email or web address] Co de Phone Number [facility] [address] [place] [address], [facility] * XR CHEST 1VW PORTABLE (09/25/2014 10:30 AM HEAVY LINE TECHNICIAN) Only the most recent of3 resultswithin the time period is included. Anatomical Region Laterality Modality Chest Radiographic Romy ging 09/25/2014 10:5 2 AM HEAVY LINE TECHNICIAN Narrative 09/25/2014 11:17 AM HEAVY LINE TECHNICIAN AP PORTABLE CHEST 09/25/2014 AT 1023 HOURS HISTORY: Pulmonary insufficiency. Since 09/23/2014, there has been no change in the heart size. There has been interval improvement of pulmonary venous hypertension and interstitial lung infiltrates. Edited by Jeannie Su on 09/25/2014 11:06 AM Procedure Note Blane Maynard MD - 09/25/2014 AP PORTABLE CHEST 09/25/2014 AT 1023 HOURS HISTORY: Pulmonary insufficiency. Since 09/23/2014, there has been no change in the heart size. There has been interval improvement of pulmonary venous hypertension and interstitial lung infiltrates. Edited by Jeannie Su on 09/25/2014 11:06 AM Nikolai Calvo MD DIAGNOSTIC IMAGING O RDBLU * (ABNORMAL) HEMOGLOBIN A1C (09/24/2014 1:09 AM HEAVY LINE TECHNICIAN) Hemoglobin A1c 7.5(H) 4.2 - 6.3 % 09/24/2014 1:44 AM HEAVY LINE TECHNICIAN [facility] Estimated Average Glucose 169 mg/dL 09/24/2014 1:[address] [facility] Whole Blood BLOOD SPECIMEN WITH EDTA / Unknown 09/24/2014 1:09 AM HEAVY LINE TECHNICIAN 09/24/2014 1:15 AM HEAVY LINE TECHNICIAN Breanna Schultz MD LAB - CHEMISTRY O KATY [facility] [address] [place] [address] * (ABNORMAL) RENAL FUNCTION PANEL (09/24/2014 1:08 AM HEAVY LINE TECHNICIAN) Glucose 298(H) 74 - 106 mg/dL 09/24/2014 1:33 AM HEAVY LINE TECHNICIAN [facility] Sodium 139 136 - 145 mmol/L 09/24/2014 1:33 AM HEAVY LINE TECHNICIAN [facility] Potassium 3.5 3.5 - 5.1 mmol/L 09/24/2014 1:[address] [facility] Chloride 106 98 - 107 mmol/L 09/24/2014 1:[address] [facility] CO2 24 22 - 31 mmol/L 09/24/2014 1:[address] [facility] Calcium 8.3(L) 8.5 - 10.1 mg/dL 09/24/2014 1:[address] [facility] Anion Gap 9 5 - 15 mmol/L 09/24/2014 1:[address] [facility] BUN 28(H) 7 - 21 mg/dL 09/24/2014 1:[address] [facility] Creatinine 0.92 0.50 - 1.30 mg/dL 09/24/2014 1:[address] [facility] Albumin 2.3(L) 3.4 - 5.0 gm/dL 09/24/2014 1:[address] [facility] Phosphorus 3.1 2.5 - 4.9 mg/dL 09/24/2014 1:[address] [facility] eGFR by MDRD >60 >60 mL/min/1.7 3m2 09/24/2014 1:[address] [facility] eGFR by MDRD >60 >60 mL/min/1.7 3m2 09/24/2014 1:[address] [facility] Blood BLOOD SPECIMEN / Unknown 09/24/2014 1:08 AM HEAVY LINE TECHNICIAN 09/24/2014 1:15 AM HEAVY LINE TECHNICIAN Veronica Almonte MD LAB - CHEMISTRY RUIZ SUÁREZ Performing Organization Address City/[facility] [[email or web address]] Co de Phone Number [facility] [address] [place] [id number] * LACTIC ACID BLOOD (09/24/2014 1:08 AM HEAVY LINE TECHNICIAN) Only the most recent of3 resultswithin the time period is included. Lactic Acid 1.8 0.7 - 2.1 mmol/L 09/24/2014 1:[address] [facility] Comment: Blood BLOOD SPECIMEN / Unknown 09/24/2014 1:08 AM HEAVY LINE TECHNICIAN 09/24/2014 1:15 AM HEAVY LINE TECHNICIAN Veronica Almonte MD LAB - CHEMISTRY RUIZ SUÁREZ Performing Organization Address City/[facility] [[email or web address] Co de Phone Number [facility] [address] [place] [id number] * CULTURE MRSA (09/23/2014 1:39 PM HEAVY LINE TECHNICIAN) Only the most recent of2 resultswithin the time period is included. Culture Negative for MRSA SHERLYN 09/24/2014 7:41 PM HEAVY LINE TECHNICIAN [facility] Microbiology SPECIMEN FROM NASAL FOSSAE / Unknown Collection / Unknown 09/23/2014 1:39 PM HEAVY LINE TECHNICIAN 09/23/2014 2:01 PM HEAVY LINE TECHNICIAN Veronica Almonte MD LAB - MICROBIOLOGY O RDBLU Performing Organization Address [facility] [[email or web address]] Co de Phone Number [facility] [address] [place], [place] [id number] [place] [address] * CULTURE VRE (09/23/2014 1:38 PM HEAVY LINE TECHNICIAN) Culture Negative for VRE SHERLYN 09/24/2014 7:41 PM HEAVY LINE TECHNICIAN [facility] Stool RECTAL SWAB / Unknown Collection / Unknown 09/23/2014 1:38 PM HEAVY LINE TECHNICIAN 09/23/2014 2:01 PM HEAVY LINE TECHNICIAN Veronica Almonte MD LAB - MICROBIOLOGY O RDERABLES Performing Organization Address [facility] [[email or web address]] Co de Phone Number [facility] [address] [facility] [address] * ECHOCARDIOGRAM 2D WITH DOPPLER (09/23/2014 10:32 AM HEAVY LINE TECHNICIAN) 09/23/2014 10:3 2 AM HEAVY LINE TECHNICIAN Narrative [facility] - 09/23/2014 2:38 PM HEAVY LINE TECHNICIAN Transthoracic Echocardiogram 2D, M-mode, Doppler, and Color Doppler Patient: MIRTA PARNELL MR number: [id number] Height: 62 in Weight: 183.7 lb BSA: 1.85 m?? Study date: 23-Sep-2014 : 1945 Age: 69 years Gender: Female Race: Referring Physician: ??Blane Villeda MD Prize Jacker: ??Kristin Hernandez [facility] Reading Physician: ??Gurinder Martinez MD, [facility], [facility] Summary: - ??Clinical question: - ??Acute respiratory distress - ??Left ventricle: - ??Systolic function was normal. Ejection fraction was estimated to be 65 %. - ??Although no diagnostic regional wall motion abnormality was identified, this possibility cannot be completely excluded on the basis of this study. - ??There was mild concentric hypertrophy. - ??Left atrium: - ??The atrium was mildly dilated. - ??Right ventricle: - ??Not well seen but suggestive of some decrease of function in mid free wall. - ??The ventricle was mildly dilated. Indications: Acute respiratory distress Procedure: The procedure was performed at the bedside. This was a routine study. The transthoracic approach was used. The study included complete 2D imaging, M-mode, complete spectral Doppler, and color Doppler. The heart rate was 73 bpm. Systolic blood pressure was 148 mmHg. Diastolic blood pressure was 83 mmHg. Image quality was good. Left ventricle: Size was normal. Systolic function was normal. Ejection fraction was estimated to be 65 %. Although no diagnostic regional wall motion abnormality was identified, this possibility cannot be completely excluded on the basis of this study. There was mild concentric hypertrophy. Aortic valve: The valve was trileaflet. Leaflets exhibited normal thickness and normal cuspal separation. Doppler: Transaortic velocity was within the normal range. There was no stenosis. There was no significant regurgitation. Aorta: The root exhibited normal size. Mitral valve: Doppler: There was no significant regurgitation. Left atrium: The atrium was mildly dilated. Right ventricle: Not well seen but suggestive of some decrease of function in mid free wall. The ventricle was mildly dilated. Systolic function was low normal. Pulmonic valve: Doppler: There was mild regurgitation. Tricuspid valve: Doppler: There was trivial regurgitation. Right atrium: Size was normal. Pericardium: There was no pericardial effusion. The pericardium was normal in appearance. System measurement tables 2D Ao Diam: 3.3 cm IVSd: 1.3 cm LVOT Diam: 2 cm LA Diam: 4 cm LVIDd: 4.5 cm LVIDs: 2.4 cm LVPWd: 1.3 cm CW AV VTI: 33.1 cm AV Vmax: 1.3 m/s AV Vmean: 1 m/s AV maxP.6 mmHg AV meanP.9 mmHg PV Vmax: 0.9 m/s PV maxP.2 mmHg PW DWAYNE (VTI): 2.1 cm2 DWAYNE Vmax: 2.5 cm2 LVOT VTI: 22.5 cm LVOT Vmax: 1 m/s LVOT Vmean: 0.6 m/s LVOT maxP mmHg LVOT meanP.8 mmHg MV E/A Ratio: 0.8 LATERAL E': 0.1 m/s Prepared and signed by Gurinder Martinez MD, [facility], [facility] Signed 23-Sep-2014 14:38:38 Procedure Note Gurinder Martinez MD - 09/23/2014 Transthoracic Echocardiogram 2D, M-mode, Doppler, and Color Doppler Patient: MIRTA PARNELL MR number: [id number] Height: 62 in Weight: 183.7 lb BSA: 1.85 m?? Study date: 23-Sep-2014 : 1945 Age: 69 years Gender: Female Race: Referring Physician: Blane Villeda MD Prize Jacker: Kristin Hernandez RDCS Reading Physician: Gurinder Martinez MD, [facility], [facility] Summary: - Clinical question: - Acute respiratory distress - Left ventricle: - Systolic function was normal. Ejection fraction was estimated to be 65 %. - Although no diagnostic regional wall motion abnormality was identified, this possibility cannot be completely excluded on the basis of this study. - There was mild concentric hypertrophy. - Left atrium: - The atrium was mildly dilated. - Right ventricle: - Not well seen but suggestive of some decrease of function in mid free wall. - The ventricle was mildly dilated. Indications: Acute respiratory distress Procedure: The procedure was performed at the bedside. This was a routine study. The transthoracic approach was used. The study included complete 2D imaging, M-mode, complete spectral Doppler, and color Doppler. The heart rate was 73 bpm. Systolic blood pressure was 148 mmHg. Diastolic blood pressure was 83 mmHg. Image quality was good. Left ventricle: Size was normal. Systolic function was normal. Ejection fraction was estimated to be 65 %. Although no diagnostic regional wall motion abnormality was identified, this possibility cannot be completely excluded on the basis of this study. There was mild concentric hypertrophy. Aortic valve: The valve was trileaflet. Leaflets exhibited normal thickness and normal cuspal separation. Doppler: Transaortic velocity was within the normal range. There was no stenosis. There was no significant regurgitation. Aorta: The root exhibited normal size. Mitral valve: Doppler: There was no significant regurgitation. Left atrium: The atrium was mildly dilated. Right ventricle: Not well seen but suggestive of some decrease of function in mid free wall. The ventricle was mildly dilated. Systolic function was low normal. Pulmonic valve: Doppler: There was mild regurgitation. Tricuspid valve: Doppler: There was trivial regurgitation. Right atrium: Size was normal. Pericardium: There was no pericardial effusion. The pericardium was normal in appearance. System measurement tables 2D Ao Diam: 3.3 cm IVSd: 1.3 cm LVOT Diam: 2 cm LA Diam: 4 cm LVIDd: 4.5 cm LVIDs: 2.4 cm LVPWd: 1.3 cm CW AV VTI: 33.1 cm AV Vmax: 1.3 m/s AV Vmean: 1 m/s AV maxP.6 mmHg AV meanP.9 mmHg PV Vmax: 0.9 m/s PV maxP.2 mmHg PW DWAYNE (VTI): 2.1 cm2 DWAYNE Vmax: 2.5 cm2 LVOT VTI: 22.5 cm LVOT Vmax: 1 m/s LVOT Vmean: 0.6 m/s LVOT maxP mmHg LVOT meanP.8 mmHg MV E/A Ratio: 0.8 LATERAL E': 0.1 m/s Prepared and signed by Gurinder Martinez MD, [facility], FAC Signed 23-Sep-2014 14:38:38 Blane Villeda MD ECHO ORDERABLES [facility] [address] [place] [address] * (ABNORMAL) TROPONIN I (09/23/2014 5:13 AM HEAVY LINE TECHNICIAN) Only the most recent of2 resultswithin the time period is included. Troponin I 1.270(HH) 0.000 - 0.049 ng/mL 09/23/2014 5:34 AM HEAVY LINE TECHNICIAN [facility] Blood BLOOD SPECIMEN / Unknown Venipuncture / Unknown 09/23/2014 5:13 AM HEAVY LINE TECHNICIAN 09/23/2014 5:13 AM HEAVY LINE TECHNICIAN Narrative [facility] - 09/23/2014 5:[address] [facility] Note: Diagnosis of myocardial infarction requires symptoms of ischemia or EKG changes of ischemia and TNI >99th of normal (0.05 ng/mL). Troponin should be drawn on initial assessment and 3-6 hours later as clinically indicated. Any condition resulting in myocardial cell damage can increase cardiac troponin levels. In addition to myocardial infarction, these include but are not limited to CHF, arrhythmia, myocarditis, and non-cardiac related causes such as pulmonary embolism, renal failure and sepsis. Breanna Schultz MD LAB - CHEMISTRY O RDBLU Performing Organization Address [facility] [[email or web address] Co de Phone Number [facility] [address] [place] [address] * (ABNORMAL) B-TYPE NATRIURETIC PEPTIDE (09/23/2014 5:13 AM HEAVY LINE TECHNICIAN) BNP 821(H) 0 - 100 pg/mL 09/23/2014 6:[address] [facility] Blood BLOOD SPECIMEN / Unknown Venipuncture / Unknown 09/23/2014 5:13 AM HEAVY LINE TECHNICIAN 09/23/2014 5:13 AM HEAVY LINE TECHNICIAN Narrative [facility] - 09/23/2014 6:50 AM HEAVY LINE TECHNICIAN A cutoff of 100 pg/ml has been demonstrated to provide the maximal combination of sensitivity, specificity, and negative predictive value for contributing to the diagnosis of congestive heart failure(CHF) only. ??A BNP value greater than or equal to 100 pg/ml is consistent with a diagnosis of CHF in the appropriate clinical setting. ??False positive results are more common in females greater than 75 years of age. ??Blood concentrations of natriuretic peptides may also be elevated in patients with myocardial infarction and in patients who are candidates for or are undergoing renal dialysis. Breanna Schultz MD LAB - CHEMISTRY O KATY Performing Organization Address [facility] [[email or web address] Co de Phone Number [facility] [address] [place] [address] * (ABNORMAL) BLOOD GASES ART (09/23/2014 5:09 AM HEAVY LINE TECHNICIAN) pH Arterial 7.39 7.35 - 7.45 pH 09/23/2014 9:05 AM HEAVY LINE TECHNICIAN [facility] pCO2 Arterial 34(L) 35 - 45 mm hg 09/23/2014 9:05 AM HEAVY LINE TECHNICIAN [facility] pO2 Arterial 111(H) 80 - 100 mm hg 09/23/2014 9:05 AM HEAVY LINE TECHNICIAN [facility] HCO3 Arterial 20(L) 22 - 26 mmol/L 09/23/2014 9:05 AM HEAVY LINE TECHNICIAN [facility] BE Arterial -4.1(L) -2.0 - 2.0 mmol/L 09/23/2014 9:[address] [facility] O2 Saturation Arterial 98 90 - 100 % 09/23/2014 9:[address] [facility] Mode Bipap 09/23/2014 9:[address] [facility] Kevin's Test Yes 09/23/2014 9:[address] [facility] BIPAP Exp Pressure (cmH2O) 5 09/23/2014 9:[address] [facility] BIPAP Insp Pressure (cmH2O) 10 09/23/2014 9:[address] [facility] FI O2 45 % 09/23/2014 9:[address] [facility] Respiratory Rate 12 09/23/2014 9:[address] [facility] Sample Site Right RA 09/23/2014 9:[address] [facility] Sample Type arterial 09/23/2014 9:[address] [facility] Blood ARTERIAL BLOOD SPECIMEN / Unknown 09/23/2014 5:09 AM HEAVY LINE TECHNICIAN 09/23/2014 5:09 AM HEAVY LINE TECHNICIAN Narrative [facility] - 09/23/2014 9:05 AM HEAVY LINE TECHNICIAN ABG DRAWN @[facility]/ [facility] Breanna Schultz MD LAB - BLOOD GASES ORDERABLES Performing Organization Address [facility] [[email or web address] Co de Phone Number [facility] [address] [place] [address] * (ABNORMAL) URINALYSIS MICROSCOPIC ONLY W/REFLEX CULTURE (09/23/2014 12:11 AM HEAVY LINE TECHNICIAN) RBC UA 5-10(A) 0-2, 2-5 # /hpf 09/23/2014 12:[address] [facility] Hyaline Casts 0-2 0 - 2 # /lpf 09/23/2014 12:[address] [facility] Urine URINE SPECIMEN COLLECTION, CATHETERIZED / Unknown 09/23/2014 12:11 AM HEAVY LINE TECHNICIAN 09/23/2014 12:15 AM HEAVY LINE TECHNICIAN Beryl Carlisle APRN-CAREER BASED INTERVENTION COORDINATOR LAB - URINALYSIS O RDERABLES Performing Organization Address City/[facility]/ZIP Co de Phone Number [facility] [address] [place] [address] * (ABNORMAL) URINALYSIS ROUTINE W/REFLEX TO CULTURE (09/23/2014 12:[address] [facility]) Color UA Yellow Straw, Yellow, Dark Yellow 09/23/2014 12:[address] [facility] Clarity UA Turbid 09/23/2014 12:[address] [facility] Specific [place] UA >1.030(H) 1.005 - 1.030 09/23/2014 12:[address] [facility] pH UA 5.5 5.0 - 8.0 pH 09/23/2014 12:[address] [facility] Protein UA 3+(A) Negative 09/23/2014 12:[address] [facility] Blood UA 3+(A) Negative 09/23/2014 12:[address] [facility] Leukocyte UA 2+(A) Negative 09/23/2014 12:[address] [facility] Nitrite UA Negative Negative 09/23/2014 12:[address] [facility] Glucose UA 3+(A) Negative 09/23/2014 12:[address] [facility] Ketone UA Negative Negative 09/23/2014 12:[address] [facility] Bilirubin UA Negative Negative 09/23/2014 12:[address] [facility] Urobilinogen UA 0.2 0.1 - 1.0 EU/dL 09/23/2014 12:[address] [facility] WBC UA Auto >100(A) 0-2, 2-5 #/hpf 09/23/2014 12:[address] [facility] RBC UA Auto Reflex to manual(A) 0-2, 2-5 #/hpf 09/23/2014 12:[address] [facility] Epithelial Cell UA Auto 5-10(A) 0-2, 2-5 #/hpf 09/23/2014 12:[address] [facility] Bacteria UA Auto 4+(A) None seen 09/23/2014 12:[address] [facility] Yeast UA Auto Reflex to manual(A) None seen 09/23/2014 12:[address] [facility] Hyaline Casts UA Auto Reflex to manual(A) 0 - 2 #/lpf 09/23/2014 12:[address] [facility] Reflex Status Culture to follow 09/23/2014 12:[address] [facility] Urine URINE SPECIMEN COLLECTION, CATHETERIZED / Unknown 09/23/2014 12:11 AM HEAVY LINE TECHNICIAN 09/23/2014 12:15 AM HEAVY LINE TECHNICIAN Beryl Carlisle GEOPHYSICS PROFESSOR-[facility] LAB - URINALYSIS O RDERABLES Performing Organization Address [facility] [[email or web address]] Co de Phone Number [facility] [address] [place] [address] * (ABNORMAL) CULTURE URINE (09/23/2014 12:11 AM HEAVY LINE TECHNICIAN) Culture >100,000 CFU/mL Klebsiella pneumoniae ssp pneumoniae(A) SHERLYN 09/26/2014 6:01 AM HEAVY LINE TECHNICIAN [facility] Urine URINE SPECIMEN COLLECTION, CATHETERIZED / Unknown 09/23/2014 12:11 AM HEAVY LINE TECHNICIAN 09/23/2014 12:15 AM HEAVY LINE TECHNICIAN Narrative Organism Antibiotic Method Susceptibility Klebsiella pneumoniae ssp pneumoniae Amikacin SHERLYN <=2 ug/mL: Susceptible Klebsiella pneumoniae ssp pneumoniae Ampicillin-sulbactam SHERLYN >=32 ug/mL: Resistant Klebsiella pneumoniae ssp pneumoniae Cefazolin SHERLYN <=4 ug/mL: Susceptible Klebsiella pneumoniae ssp pneumoniae Cefepime SHERLYN <=1 ug/mL: Susceptible Klebsiella pneumoniae ssp pneumoniae Ceftriaxone SHERLYN <=1 ug/mL: Susceptible Klebsiella pneumoniae ssp pneumoniae Ciprofloxacin SHERLYN <=0.25 ug/mL: Susceptible Klebsiella pneumoniae ssp pneumoniae Extended-Spectrum Beta-Lactamase SHERLYN NEG ug/mL: - Klebsiella pneumoniae ssp pneumoniae Gentamicin SHERLYN <=1 ug/mL: Susceptible Klebsiella pneumoniae ssp pneumoniae Meropenem SHERLYN <=0.25 ug/mL: Susceptible Klebsiella pneumoniae ssp pneumoniae Nitrofurantoin SHERLYN 128 ug/mL: Resistant Klebsiella pneumoniae ssp pneumoniae Piperacillin-tazobactam SHERLYN <=4 ug/mL: Susceptible Klebsiella pneumoniae ssp pneumoniae Tobramycin SHERLYN <=1 ug/mL: Susceptible Klebsiella pneumoniae ssp pneumoniae Trimethoprim-sulfamethoxazo le SHERLYN >=320 ug/mL: Resistant [facility]yl Carlisle [facility] LAB - MICROBIOLOGY ORDERABLES Performing Organization Address City/[facility]/ZIP Co de Phone Number [facility] [address] [place] [address], [facility] * CT ABDOMEN AND PELVIS WITH IV CONTRAST (09/22/2014 11:43 PM HEAVY LINE TECHNICIAN) Anatomical Region Laterality Modality Abdomen, Pelvis Computed Tomogra phy 09/23/2014 7:26 AM HEAVY LINE TECHNICIAN Narrative 09/23/2014 7:44 AM HEAVY LINE TECHNICIAN CT ABDOMEN AND PELVIS HISTORY: Flank pain and fever and elevated white blood cell count TECHNIQUE: Multiple contiguous axial images of the abdomen and pelvis were obtained following intravenous administration of 100 cc of Visipaque 320. There is no prior CT scan for comparison. There is fatty infiltration of the liver. No focal hepatic lesion is seen. Mild intra- and extrahepatic bile duct dilatation is present which may be due to prior cholecystectomy. There are surgical clips in the upper abdomen and surrounding the spleen. The visualized spleen and pancreas, adrenal glands, kidneys, ureters and bladder are normal. The uterus is surgically absent. No adnexal mass is seen. The visualized large and small bowel are normal. No free intraperitoneal air or fluid is present. Minimal soft tissue stranding surrounding the ureters and within the ischiorectal fossa and presacral space, which is likely postsurgical. The aorta is atherosclerotic. The aorta and its branches enhance normally. No significant adenopathy is seen. Linear atelectasis is present at the lung bases bilaterally. DIAGNOSIS: There is minimal soft tissue stranding within the pelvis. There is no acute intra-abdominal or pelvic abnormality. Edited by Hedy Saunders on 09/23/2014 7:38 AM Procedure Note Blane Maynard MD - 09/23/2014 CT ABDOMEN AND PELVIS HISTORY: Flank pain and fever and elevated white blood cell count TECHNIQUE: Multiple contiguous axial images of the abdomen and pelvis were obtained following intravenous administration of 100 cc of Visipaque 320. There is no prior CT scan for comparison. There is fatty infiltration of the liver. No focal hepatic lesion is seen. Mild intra- and extrahepatic bile duct dilatation is present which may be due to prior cholecystectomy. There are surgical clips in the upper abdomen and surrounding the spleen. The visualized spleen and pancreas, adrenal glands, kidneys, ureters and bladder are normal. The uterus is surgically absent. No adnexal mass is seen. The visualized large and small bowel are normal. No free intraperitoneal air or fluid is present. Minimal soft tissue stranding surrounding the ureters and within the ischiorectal fossa and presacral space, which is likely postsurgical. The aorta is atherosclerotic. The aorta and its branches enhance normally. No significant adenopathy is seen. Linear atelectasis is present at the lung bases bilaterally. DIAGNOSIS: There is minimal soft tissue stranding within the pelvis. There is no acute intra-abdominal or pelvic abnormality. Edited by Hedy Saunders on 09/23/2014 7:38 AM Mary Gonsalez MD CT ORDERABLES * (ABNORMAL) COMPREHENSIVE METABOLIC PANEL (09/22/2014 10:45 PM HEAVY LINE TECHNICIAN) Glucose 297(H) 74 - 106 mg/dL 09/22/2014 10:[address] [facility] [facility] Sodium 137 136 - 145 mmol/L 09/22/2014 10:[address] [facility] Potassium 3.7 3.5 - 5.1 mmol/L 09/22/2014 10:[address] [facility] Chloride 101 98 - 107 mmol/L 09/22/2014 10:[address] [facility] CO2 25 22 - 31 mmol/L 09/22/2014 10:[address] [facility] Calcium 8.6 8.5 - 10.1 mg/dL 09/22/2014 10:[address] [facility] Anion Gap 11 5 - 15 mmol/L 09/22/2014 10:[address] [facility] BUN 28(H) 7 - 21 mg/dL 09/22/2014 10:[address] [facility] Creatinine 1.62(H) 0.50 - 1.30 mg/dL 09/22/2014 10:[address] [facility] eGFR by MDRD 32(L) >60 mL/min/1.7 3m2 09/22/2014 10:[address] [facility] eGFR by MDRD 38(L) >60 mL/min/1.7 3m2 09/22/2014 10:[address] [facility] Alkaline Phosphatase 26(L) 38 - 126 U/L 09/22/2014 10:[address] [facility] ALT 13 12 - 78 U/L 09/22/2014 10:[address] [facility] AST 14 5 - 40 U/L 09/22/2014 10:[address] [facility] Protein Total 6.9 6.4 - 8.2 gm/dL 09/22/2014 10:[address] [facility] Albumin 2.7(L) 3.4 - 5.0 gm/dL 09/22/2014 10:59 PM HEAVY LINE TECHNICIAN [facility] Bilirubin Total 0.4 0.2 - 1.0 mg/dL 09/22/2014 10:59 PM HEAVY LINE TECHNICIAN [facility] Blood BLOOD SPECIMEN / Unknown Venipuncture / Unknown 09/22/2014 10:45 PM HEAVY LINE TECHNICIAN 09/22/2014 10:45 PM HEAVY LINE TECHNICIAN Beryl Carlisle APRN-CAREER BASED INTERVENTION COORDINATOR LAB - CHEMISTRY OR DERABLES Performing Organization Address [facility] [[email or web address]] Co de Phone Number [facility] [address] [place] [address] * PHOSPHORUS BLOOD (09/22/2014 10:45 PM HEAVY LINE TECHNICIAN) Phosphorus 3.5 2.5 - 4.9 mg/dL 09/22/2014 10:59 PM HEAVY LINE TECHNICIAN [facility] Comment: Blood BLOOD SPECIMEN / Unknown Venipuncture / Unknown 09/22/2014 10:45 PM HEAVY LINE TECHNICIAN 09/22/2014 10:45 PM HEAVY LINE TECHNICIAN Beryl Carlisle APRN-[facility] LAB - CHEMISTRY OR DERABLES Performing Organization Address [facility] de Phone Number [facility] [address] [place] [address] * (ABNORMAL) LIPASE BLOOD (09/22/2014 10:45 PM HEAVY LINE TECHNICIAN) Lipase 57(L) 73 - 393 U/L 09/23/2014 2:04 AM HEAVY LINE TECHNICIAN [facility] Comment: Blood BLOOD SPECIMEN / Unknown 09/22/2014 10:45 PM HEAVY LINE TECHNICIAN 09/23/2014 1:54 AM HEAVY LINE TECHNICIAN Breanna Schultz MD LAB - CHEMISTRY O RDERABLES Performing Organization Address [facility] [[email or web address]] Co de Phone Number [facility] [address] [place] [address] * PTT (09/22/2014 9:44 PM HEAVY LINE TECHNICIAN) PTT 22.9 21.0 - 32.0 sec 09/22/2014 10:27 PM HEAVY LINE TECHNICIAN [facility] Blood BLOOD SPECIMEN / Unknown Venipuncture / Unknown 09/22/2014 9:44 PM HEAVY LINE TECHNICIAN 09/22/2014 10:00 PM HEAVY LINE TECHNICIAN Narrative [facility] - 09/22/2014 10:27 PM HEAVY LINE TECHNICIAN Therapeutic Range for PTT: ??44.4 - 78.3 seconds. Beryl Carlisle APRN-[facility] - COAGULATION ORDERABLES Performing Organization Address [facility] [[email or web address]] Co de Phone Number [facility] [address] [phone] * (ABNORMAL) PT-INR (09/22/2014 9:44 PM HEAVY LINE TECHNICIAN) PT 11.6 9.5 - 11.6 sec 09/22/2014 10:[address] [facility] INR 1.12(H) 0.9 - 1.1 09/22/2014 10:[address] [facility] Blood BLOOD SPECIMEN / Unknown Venipuncture / Unknown 09/22/2014 9:44 PM HEAVY LINE TECHNICIAN 09/22/2014 10:00 PM [facility] - 09/22/2014 10:[address] [facility] Conventional Anticoagulant Therapy INR Reference Ranges: ??2.0-3.0 Intensive Anticoagulant Therapy INR Reference Ranges: ? 2.5-3.5 [facility]yl [facility] - COAGULATION ORDERABLES Performing Organization Address [facility] [[email or web address]] Co de Phone Number [facility] [address] [place] [address] * (ABNORMAL) CBC W MANUAL DIFFERENTIAL (09/22/2014 9:44 PM HEAVY LINE TECHNICIAN) WBC 20.6(H) 4.4 - 10.7 x10^9/L 09/22/2014 10:[address] [facility] RBC 4.09 3.80 - 5.20 x10^12/L 09/22/2014 10:[address] [facility] Hemoglobin 11.4(L) 12.0 - 15.6 gm/dL 09/22/2014 10:[address] [facility] Hematocrit 34.4(L) 35.9 - 45.5 % 09/22/2014 10:[address] [facility] MCV 84.1 80.7 - 98.3 fl 09/22/2014 10:[address] [facility] MCH 27.9 26.7 - 34.0 pg 09/22/2014 10:[address] [facility] MCHC 33.1 30.8 - 35.9 gm/dL 09/22/2014 10:[address] [facility] RDW-CV 15.1(H) 12.1 - 14.9 % 09/22/2014 10:[address] [facility] MPV 9.9 9.4 - 12.9 fl 09/22/2014 10:[address] [facility] Platelet Count 310 153 - 416 x10^9/L 09/22/2014 10:[address] [facility] Blood BLOOD SPECIMEN / Unknown Venipuncture / Unknown 09/22/2014 9:44 PM HEAVY LINE TECHNICIAN 09/22/2014 10:[address] [facility] Beryl Carlisle APRN-CAREER BASED INTERVENTION COORDINATOR LAB - HEMATOLOGY O RDERABLES Performing Organization Address City/[facility] [[email or web address]] Co de Phone Number [facility] [address] [place] [address] * EKG 12-LEAD (09/22/2014 9:[address] [facility]) Ventricular Rate 73 BPM [facility] Atrial Rate 73 BPM [facility] P-R Interval 144 ms [facility] QRS Duration ms 86 ms [facility] Q-T Interval ms 464 ms [facility] QTC Calculation (Bezet) 511 ms [facility] Calculated P [place] 13 degrees [facility] Calculated R [place] -10 degrees [facility] Calculated T [place] -13 degrees [facility] Interpretation EKG NORMAL SINUS RHYTHM MODERATE VOLTAGE CRITERIA FOR LVH, MAY BE NORMAL VARIANT NONSPECIFIC ST AND T WAVE ABNORMALITY PROLONGED QT ABNORMAL ECG NO PREVIOUS ECGS AVAILABLE Confirmed by Albina Vasquez ([id number]) on 09/23/2014 8:10:33 AM [facility] 09/22/2014 9:04 PM HEAVY LINE TECHNICIAN 09/23/2014 8:[address] [facility] Beryl ESPARZA ECG ORDERABLES Performing Organization Address City/[facility]/ZIP Co de Phone Number [facility] Care Teams Baker Apprentice Relationship Specialty Start Date End Date Jameson Patterson MD [address] [address] PCP - General Internal Medicine 09/22/14 Kimberly Owen RN Tile Designer 09/23/14
--- OUTSIDE RECORDS SUMMARY | 2024-12-02 10:13 | XMS_ITS | Continuity of Care Document ---
Author Organization [facility] Address [address] [place] [address] [place] [address] Phone Care Team Providers Care Manager Floor Name Role Phone Hans Iraheta DO Unavailable Unavailable Advance Directives Directive Yes / No Effective Date File Name No Information Encounters Encounter Description Practice Location Reason(s) For Visit Diagnoses Date Provider Providers Copied on Encounter [facility], [address] [place] [address] [address], [place], [place], [id number], tel:[phone] [facility] No Information Myrtle Jaeger. [address] [place], [address], [place]. tel:[phone] Family History Family Member Type Diagnosis Age At Onset No Information Payers Payer name Insurance type Covered green party ID Authoriza tion(s) No Information Social History [...]
== END 2024-11-28 15:27 | disposition home or self-care (01) ==
PROVIDERS: Emergency Provider Preventive Medicine Aerospace Medicine; PCP Emergency Medicine
DX: M79.661 Pain in right lower leg (principal); R19.00 Intra-abdominal and pelvic swelling, mass and lump, unspecified site; I10 Essential (primary) hypertension; E78.5 Hyperlipidemia, unspecified; E11.51 Type 2 diabetes mellitus with diabetic peripheral angiopathy without gangrene; I73.9 Peripheral vascular disease, unspecified; E55.9 Vitamin D deficiency, unspecified; E11.42 Type 2 diabetes mellitus with diabetic polyneuropathy; F03.90 Unspecified dementia, unspecified severity, without behavioral disturbance, psychotic disturbance, mood disturbance, and anxiety; F32.A Depression, unspecified; Z87.440 Personal history of urinary (tract) infections; Z87.891 Personal history of nicotine dependence; Z79.82 Long term (current) use of aspirin; Z79.4 Long term (current) use of insulin; Z79.85 Long-term (current) use of injectable non-insulin antidiabetic drugs; Z79.899 Other long term (current) drug therapy
CPT/HCPCS: 36415; 73706; 80048; 85025; 85610; 93971; 99284; Q9967

== ENCOUNTER 2024-12-11 10:37 | Outpatient (CLI) | payer MEDICARE, SELFPAY ==
--- NOTE | ~2024-12-11 | MR_ITS ---
EXAMINATION: MR lower leg RT wo con DATE: 12/11/2024 11:36 INDICATION: Localized swelling, mass and lump, right lower leg. TECHNIQUE: Magnetic resonance imaging (MRI) of the right lower leg was performed without intravenous contrast. COMPARISON: CTA 11/28/2024, ultrasound 11/28/2024, right knee radiographs 08/30/2024 FINDINGS: Alignment is normal. There is an old transverse fracture of patella with 1.7 cm distraction and nonunion. There is an insufficiency fracture of right lateral femoral condyle with 2 mm cortical depression and surrounding edema-like marrow signal intensity. There is a moderate-sized right knee joint effusion. There is a small Sosa's cyst. There is mild right knee osteoarthritis. There is a 6. 4 x 3.0 x 15.6 cm hematoma in medial head of right gastrocnemius muscle. IMPRESSION: 1. Hematoma in medial head of right gastrocnemius muscle (grade 2 muscle strain). 2. Insufficiency fracture of right lateral femoral condyle. Reviewed, dictated and finalized at location A. DRY HAND IMPRESSION: 1. Hematoma in medial head of right gastrocnemius muscle (grade 2 muscle strain ). 2. Insufficiency fracture of right lateral femoral condyle.
--- OUTSIDE RECORDS SUMMARY | 2024-12-11 10:40 | XMS_ITS | Continuity of Care Document ---
Author Organization [facility] Address [address] [place] [address] [place] [address] Phone Care Team Providers Care Rod Straightener Name Role Phone Hans Iraheta DO Unavailable Unavailable Advance Directives Directive Yes / No Effective Date File Name No Information Encounters Encounter Description Practice Location Reason(s) For Visit Diagnoses Date Provider Providers Copied on Encounter [facility], [id number] [place] [address] [address], [place], [place], [id number], tel:[phone] [facility] No Information Myrtle Jaeger. [address] [place], [address], [place]. tel:[phone] Family History Family Member Type Diagnosis Age At Onset No Information Payers Payer name Insurance type Covered libertarian ID Authoriza tion(s) No Information Social History [...]
--- OUTSIDE RECORDS SUMMARY | 2024-12-11 10:40 | XMS_ITS | Clinical Summary ---
Author Organization [facility] Address [address] [place] [address] Care Team Providers Care Comb Setter Name Role Phone Jameson Patterson MD Primary Care Provider [phone] Kimberly Owen RN Unavailable [phone] Source Comments [facility],non-owned Affiliates and Associated Physician Practices is amultiple site organization consisting of ambulatory clinics and hospital sitesin [place], [place], [place] and [place]. This disclosure is being madepursuant to the Care Everywhere program and may not contain all information available regarding this patient. Last updated 18.[facility] Allergies Active Allergy Reactions Criticality Noted Date [...] failure) 10/03/2014 Overview (10/03/2014): Added per clinical client experience specialist per Dr. Vasquez note on 09/23 S/P PICC central line placement 09/29/2014 Overview (09/29/2014): [facility] VAT Abdominal pain, other specified site 09/23/2014 Assessment & Plan (09/23/2014 7:20 AM HAND COUNTER): - Located in the lower back and radiating to the lower abdomen - CT abd not c/w pancreatitis, no obstruction - DDx will include UTI/Pyelo vs ischemic bowel Plan: - Continue IVF, Zosyn - LA trend - F/u CT abd/pelvis read Gram-negative sepsis 09/23/2014 Assessment & Plan (09/23/2014 4:20 PM HAND COUNTER): - WBC, Hypotension, LA present on arrival - CXR wass clear, UA c/w UTI - on Zosyn for coverage of gram negatives and anerobes Plan: -f/u BC, UC, LA trend -Cont Zosyn Elevated troponin I level 09/23/2014 Assessment & Plan (09/23/2014 4:20 PM HAND COUNTER): - Trop I leak, now downtrending - EKG: NSR, NSTWA, QT 511 - likely 2/2 demand ischemia vs NSTEMI Plan: - ASA 325(home dose continued), Statin Acute respiratory distress 09/23/2014 Assessment & Plan (09/23/2014 4:22 PM HAND COUNTER): - Pt received up to 4.5L of [...] 09/23/2014 Assessment & Plan (09/23/2014 7:24 AM HAND COUNTER): - Home meds need to be verified by pharmacy Plan: - Lantus 10 U, Accuchecks and SSI BERNY (acute kidney injury) 09/23/2014 Assessment & Plan (09/23/2014 7:23 AM HAND COUNTER): - No Baseline Cr on file - was on IVF but stopped due to pulm edema Plan: - Hold lisinopril DVT prophylaxis 09/23/2014 Overview (02/09/2023): Regulatory Import 02/08/23 Assessment & Plan (09/23/2014 5:39 AM HAND COUNTER): - Heparin TID HTN (hypertension) 09/23/2014 Assessment & Plan (09/23/2014 5:39 AM HAND COUNTER): - Hold lisinopril HLD (hyperlipidemia) 09/23/2014 Assessment & Plan (09/23/2014 5:39 AM HAND COUNTER): - Atorvastatin 40 mg Resolved Problems Problem [...] Comments Blood Pressure 143/80 09/29/2014 4:27 PM HAND COUNTER Pulse 79 09/29/2014 4:27 PM HAND COUNTER Temperature 36.8 ??C (98.2 ??F) 09/29/2014 4:27 PM CS T Respiratory Rate 19 09/29/2014 4:27 PM HAND COUNTER Oxygen Saturation 98% 09/29/2014 4:27 PM HAND COUNTER Inhaled Oxygen Concentration 45% 09/23/2014 8 :43 AM HAND COUNTER Weight 84.1 kg (185 lb 6.4 oz) 09/28/2014 4:32 A M HAND COUNTER Height 157.5 cm (5' 2 ) 09/27/2014 1:12 AM HAND COUNTER Body Mass Index 33.91 09/27/2014 1:12 AM HAND COUNTER Plan of Treatment Health Maintenance Due Date [...] 5:05 AM 09/23/2014 10:26 AM Care Teams Comb Setter Relationship Specialty Start Date End Date Jameson Patterson MD [address] [phone] PCP - General Internal Medicine 09/22/14 Kimberly Owen RN Water Team Leader 09/23/14
--- OUTSIDE RECORDS SUMMARY | 2024-12-11 10:41 | XMS_ITS | Referral Summary ---
Author Organization [facility] Address [address] [place] [address] Care Team Providers Care Human Resource Management Instructor Name Role Phone Jameson Patterson MD Primary Care Provider [phone] Kimberly Owen RN Unavailable [phone] Source Comments [facility],non-owned Affiliates and Associated Physician Practices is amultiple site organization consisting of ambulatory clinics and hospital sitesin [place], [place], [place] and [place]. This disclosure is being madepursuant to the Care Everywhere program and may not contain all information available regarding this patient. Last updated 18.[facility] Allergies Active Allergy Reactions Criticality Noted Date [...] failure) 10/03/2014 Overview (10/03/2014): Added per clinical residential lawn specialist per Dr. Vasquez note on 09/23 S/P PICC central line placement 09/29/2014 Overview (09/29/2014): [facility] VAT Abdominal pain, other specified site 09/23/2014 Assessment & Plan (09/23/2014 7:20 AM FLATBED OWNER OPERATOR): - Located in the lower back and radiating to the lower abdomen - CT abd not c/w pancreatitis, no obstruction - DDx will include UTI/Pyelo vs ischemic bowel Plan: - Continue IVF, Zosyn - LA trend - F/u CT abd/pelvis read Gram-negative sepsis 09/23/2014 Assessment & Plan (09/23/2014 4:20 PM FLATBED OWNER OPERATOR): - WBC, Hypotension, LA present on arrival - CXR wass clear, UA c/w UTI - on Zosyn for coverage of gram negatives and anerobes Plan: -f/u BC, UC, LA trend -Cont Zosyn Elevated troponin I level 09/23/2014 Assessment & Plan (09/23/2014 4:20 PM FLATBED OWNER OPERATOR): - Trop I leak, now downtrending - EKG: NSR, NSTWA, QT 511 - likely 2/2 demand ischemia vs NSTEMI Plan: - ASA 325(home dose continued), Statin Acute respiratory distress 09/23/2014 Assessment & Plan (09/23/2014 4:22 PM FLATBED OWNER OPERATOR): - Pt received up to 4.5L of [...] 09/23/2014 Assessment & Plan (09/23/2014 7:24 AM FLATBED OWNER OPERATOR): - Home meds need to be verified by pharmacy Plan: - Lantus 10 U, Accuchecks and SSI BERNY (acute kidney injury) 09/23/2014 Assessment & Plan (09/23/2014 7:23 AM FLATBED OWNER OPERATOR): - No Baseline Cr on file - was on IVF but stopped due to pulm edema Plan: - Hold lisinopril DVT prophylaxis 09/23/2014 Overview (02/09/2023): Regulatory Import 02/08/23 Assessment & Plan (09/23/2014 5:39 AM FLATBED OWNER OPERATOR): - Heparin TID HTN (hypertension) 09/23/2014 Assessment & Plan (09/23/2014 5:39 AM FLATBED OWNER OPERATOR): - Hold lisinopril HLD (hyperlipidemia) 09/23/2014 Assessment & Plan (09/23/2014 5:39 AM FLATBED OWNER OPERATOR): - Atorvastatin 40 mg Resolved Problems Problem [...] Comments Blood Pressure 143/80 09/29/2014 4:27 PM FLATBED OWNER OPERATOR Pulse 79 09/29/2014 4:27 PM FLATBED OWNER OPERATOR Temperature 36.8 ??C (98.2 ??F) 09/29/2014 4:27 PM CS T Respiratory Rate 19 09/29/2014 4:27 PM FLATBED OWNER OPERATOR Oxygen Saturation 98% 09/29/2014 4:27 PM FLATBED OWNER OPERATOR Inhaled Oxygen Concentration 45% 09/23/2014 8 :43 AM FLATBED OWNER OPERATOR Weight 84.1 kg (185 lb 6.4 oz) 09/28/2014 4:32 A M FLATBED OWNER OPERATOR Height 157.5 cm (5' 2 ) 09/27/2014 1:12 AM FLATBED OWNER OPERATOR Body Mass Index 33.91 09/27/2014 1:12 AM FLATBED OWNER OPERATOR Functional Status Functional Status Response Date of [...] 5:05 AM 09/23/2014 10:26 AM Care Teams Human Resource Management Instructor Relationship Specialty Start Date End Date Jameson Patterson MD [address] [phone] PCP - General Internal Medicine 09/22/14 Kimberly Owen, RN Apparel Merchandiser 09/23/14
--- OUTSIDE RECORDS SUMMARY | 2024-12-11 10:41 | XMS_ITS | Patient Health Summary ---
Author Organization [facility] Address [address] [place] [address] Care Team Providers Care Dishwasher Preparer Name Role Phone Jameson Patterson MD Primary Care Provider [phone] Kimberly Owen RN Unavailable [phone] [facility],non-owned Affiliates and Associated Physician Practices is amultiple site organization consisting of ambulatory clinics and hospital sitesin [place], [place], [place] and [place]. This disclosure is being madepursuant to the Care Everywhere program and may not contain all information available regarding this patient. Last updated 18.[facility] Allergies * Tramadol Medications * Be aware [...] Comments Blood Pressure 143/80 09/29/2014 4:27 PM FINANCIAL SOLUTIONS ADVISOR Pulse 79 09/29/2014 4:27 PM FINANCIAL SOLUTIONS ADVISOR Temperature 36.8 ??C (98.2 ??F) 09/29/2014 4:27 PM CS T Respiratory Rate 19 09/29/2014 4:27 PM FINANCIAL SOLUTIONS ADVISOR Oxygen Saturation 98% 09/29/2014 4:27 PM FINANCIAL SOLUTIONS ADVISOR Inhaled Oxygen Concentration 45% 09/23/2014 8 :43 AM FINANCIAL SOLUTIONS ADVISOR Weight 84.1 kg (185 lb 6.4 oz) 09/28/2014 4:32 A M FINANCIAL SOLUTIONS ADVISOR Height 157.5 cm (5' 2 ) 09/27/2014 1:12 AM FINANCIAL SOLUTIONS ADVISOR Body Mass Index 33.91 09/27/2014 1:12 AM FINANCIAL SOLUTIONS ADVISOR Procedures * IMAGING/RADIOLOGY/XRAY RESULTS ORDER(Performed 09/30/2014) * [...] Diabetes mellitus (HCC), BERNY (acute kidney injury) ([facility]),DVT prophylaxis, HTN (hypertension), HLD (hyperlipidemia) * GLUCOSE [...] * IMAGING/RADIOLOGY/XRAY RESULTS ORDER (09/30/2014 10:13 PM FINANCIAL SOLUTIONS ADVISOR) Anatomical Region Laterality Modality Other Narrative 09/30/2014 10:13 PM FINANCIAL SOLUTIONS ADVISOR Ordered by an unspecified provider. Scanned Document IMAGING * LAB RESULTS ORDER (09/30/2014 10:13 PM FINANCIAL SOLUTIONS ADVISOR) Narrative 09/30/2014 10:13 PM FINANCIAL SOLUTIONS ADVISOR Ordered by an unspecified provider. Scanned Document LAB - THERAPEUTIC DR UG MONITORING ORDERABLES * CARDIAC RHYTHM STRIP ORDER (09/30/2014 10:12 PM FINANCIAL SOLUTIONS ADVISOR) Narrative 09/30/2014 10:12 PM FINANCIAL SOLUTIONS ADVISOR Ordered by an unspecified provider. Scanned Document CARDIAC SERVICES ORD ERABLES * XR CHEST FOR PICC PLMT (Place order AFTER PICC line is inserted) (09/29/2014 12:38 PM FINANCIAL SOLUTIONS ADVISOR) Anatomical Region Laterality Modality Radiographic Romy ging 09/29/2014 12:4 0 PM FINANCIAL SOLUTIONS ADVISOR Impressions 09/29/2014 12:41 PM FINANCIAL SOLUTIONS ADVISOR PICC line in superior vena cava. Narrative 09/29/2014 12:41 PM FINANCIAL SOLUTIONS ADVISOR Chest x-ray PICC line placement. History: PICC [...] - POINT OF CARE (09/29/2014 11:47 AM FINANCIAL SOLUTIONS ADVISOR) Only the most recent of29 resultswithin the time period is included. [facility] Glucose WB/POC 259(H) 70 - 106 mg/dL 10/01/2014 9:47 PM FINANCIAL SOLUTIONS ADVISOR [facility] Blood BLOOD SPECIMEN / Unknown 09/29/2014 11:47 AM FINANCIAL SOLUTIONS ADVISOR 10/01/2014 9:47 PM FINANCIAL SOLUTIONS ADVISOR Daniela Geronimo MD LAB - POINT OF CARE ORDERABLES [facility] [address] [place] [address] * (ABNORMAL) CBC W AUTO DIFFERENTIAL (09/29/2014 5:07 AM FINANCIAL SOLUTIONS ADVISOR) Only the most recent of7 resultswithin the time period is included. [facility] WBC 11.4(H) 4.4 - 10.7 x10^9/L 09/29/2014 6:02 AM [facility] RBC 3.62(L) 3.80 - 5.20 x10^12/L 09/29/2014 6:02 AM [facility] Hemoglobin 9.8(L) 12.0 - 15.6 gm/dL 09/29/2014 6:02 AM [facility] Hematocrit 29.5(L) 35.9 - 45.5 % 09/29/2014 6:02 AM [facility] MCV 81.5 80.7 - 98.3 fl 09/29/2014 6:02 AM [facility] MCH 27.1 26.7 - 34.0 pg 09/29/2014 6:02 AM [facility] MCHC 33.2 30.8 - 35.9 gm/dL 09/29/2014 6:02 AM [facility] Platelet Count 342 153 - 416 x10^9/L 09/29/2014 6:02 AM [facility] RDW-CV 14.5 12.1 - 14.9 % 09/29/2014 6:02 AM [facility] MPV 10.0 9.4 - 12.9 fl 09/29/2014 6:02 AM [facility] Neutrophils % 63.2 44.0 - 73.0 % 09/29/2014 6:02 AM [facility] Lymphocytes % 23.2 20.0 - 43.0 % 09/29/2014 6:02 AM [facility] Monocytes % 7.2 5.0 - 13.0 % 09/29/2014 6:02 AM [facility] Eosinophils % 3.7 0.0 - 6.0 % 09/29/2014 6:02 AM [facility] Basophils % 0.8 0.0 - 2.0 % 09/29/2014 6:02 AM [facility] Immature Granulocytes 1.9(H) 0 - 1 % 09/29/2014 6:02 AM [facility] Neutrophil Absolute 7.20(H) 2.01 - 7.14 x10^9/L 09/29/2014 6:02 AM [facility] Lymphocytes Absolute 2.64 1.07 - 3.94 x10^9/L 09/29/2014 6:02 AM [facility] Monocytes Absolute 0.82 0.26 - 1.07 x10^9/L 09/29/2014 6:02 AM [facility] Eosinophils Absolute 0.42 0 - 0.47 x10^9/L 09/29/2014 6:02 AM [facility] Basophils Absolute 0.09(H) 0 - 0.08 x10^9/L 09/29/2014 6:02 AM [facility] Immature Granulocytes Absolute 0.22(H) 0.00 - 0.06 x10^9/L 09/29/2014 6:02 AM [facility] nRBC Auto 0 /100 WBC 09/29/2014 6:02 AM [facility] Blood BLOOD SPECIMEN / Unknown Lab Venipuncture / Unknown 09/29/2014 5:07 AM FINANCIAL SOLUTIONS ADVISOR 09/29/2014 5:17 AM [facility] Bushra Gan MD LAB - HEMATOLOGY ORD ERABLES [facility] [address] [place] [address] * (ABNORMAL) BASIC METABOLIC PANEL (CALCIUM TOTAL) (09/29/2014 5:07 AM [facility]) Only the most recent of6 resultswithin the time period is included. Glucose 145(H) 74 - 106 mg/dL 09/29/2014 5:38 AM [facility] Sodium 140 136 - 145 mmol/L 09/29/2014 5:38 AM [facility] Potassium 3.6 3.5 - 5.1 mmol/L 09/29/2014 5:38 AM [facility] Chloride 101 98 - 107 mmol/L 09/29/2014 5:38 AM [facility] CO2 30 22 - 31 mmol/L 09/29/2014 5:38 AM [facility] Calcium 8.9 8.5 - 10.1 mg/dL 09/29/2014 5:38 AM [facility] Anion Gap 9 5 - 15 mmol/L 09/29/2014 5:38 AM [facility] BUN 10 7 - 21 mg/dL 09/29/2014 5:38 AM [facility] Creatinine 0.52 0.50 - 1.30 mg/dL 09/29/2014 5:38 AM [facility] eGFR by MDRD >60 >60 mL/min/1.7 3m2 09/29/2014 5:38 AM FINANCIAL SOLUTIONS ADVISOR [facility] eGFR by MDRD >60 >60 mL/min/1.7 3m2 09/29/2014 5:38 AM FINANCIAL SOLUTIONS ADVISOR [facility] Blood BLOOD SPECIMEN / Unknown Lab Venipuncture / Unknown 09/29/2014 5:07 AM FINANCIAL SOLUTIONS ADVISOR 09/29/2014 5:17 AM FINANCIAL SOLUTIONS ADVISOR Bushra Gan MD LAB - CHEMISTRY RUIZ SUÁREZ [facility] [address] [place] [address] * ECHO JUDITH (09/28/2014 8:29 AM FINANCIAL SOLUTIONS ADVISOR) 09/28/2014 8:29 AM FINANCIAL SOLUTIONS ADVISOR Narrative [facility] - 09/29/2014 5:33 PM FINANCIAL SOLUTIONS ADVISOR Transesophageal Echocardiogram 2D, Doppler, and Color Doppler Patient: MIRTA PARNELL MR number: [id number] Height: Weight: BSA: Study date: 28-Sep-2014 : 1945 Age: 69 years Gender: Female Race: Allergies: TRAMADOL Reading Physician: ??Albina Vasquez, DO Referring Physician: ??Bushra Gan MD Production Metal Sprayer: ??Kristin Hernandez [facility] Performing Physician: ??Albina Vasquez, DO Impressions: There [...] ??Contrast injection was performed. There was no fcfss-rx-oohu shunt, with provocative maneuvers to increase right [...] Contrast injection was performed. There was no arqwd-ul-vcvf shunt, with provocative maneuvers to increase right [...] Color Doppler Patient: MIRTA PARNELL MR number: [id number] Height: Weight: BSA: Study date: 28-Sep-2014 : 1945 Age: 69 years Gender: Female Race: Allergies: TRAMADOL Reading Physician: Albina Vasquez DO Referring Physician: Bushra Gan MD Production Metal Sprayer: Kristin Hernandez [facility] Performing Physician: Albina Vasquez DO Impressions: There [...] Contrast injection was performed. There was no witch-[id number]-ttbf shunt, with provocative maneuvers to increase right [...] Contrast injection was performed. There was no fydyo-pl-gkjq shunt, with provocative maneuvers to increase right [...] Gan MD ECHO ORDERABLES Performing Organization Address City/State/[facility] Co de Phone Number [facility] [address] [place] [address] * (ABNORMAL) DIFFERENTIAL MANUAL (09/28/2014 5:47 AM FINANCIAL SOLUTIONS ADVISOR) Only the most recent of2 resultswithin the time period is included. WBC Auto 11.3 x10^9/L 09/28/2014 6:35 AM [facility] Neutrophil % Manual 63 44 - 73 % 09/28/2014 6:35 AM [facility] Lymphocytes % Manual 24 20 - 43 % 09/28/2014 6:35 AM [facility] Monocytes % Manual 3(L) 5 - 13 % 09/28/2014 6:35 AM [facility] Eosinophils % Manual 7(H) 0 - 6 % 09/28/2014 6:35 AM [facility] Band % Manual 3 0 - 11 % 09/28/2014 6:35 AM [facility] Cells Counted 100 # cells 09/28/2014 6:35 AM [facility] RBC Morphology Normal 09/28/2014 6:35 AM [facility] WBC Morph Normal 09/28/2014 6:35 AM FINANCIAL SOLUTIONS ADVISOR [facility] Blood BLOOD SPECIMEN / Unknown Lab Venipuncture / Unknown 09/28/2014 5:47 AM FINANCIAL SOLUTIONS ADVISOR 09/28/2014 5:55 AM FINANCIAL SOLUTIONS ADVISOR Bushra Gan MD LAB - HEMATOLOGY ORD ERABLES Performing Organization Address [facility] Co de Phone Number [facility] [address] [place] [phone] * (ABNORMAL) MAGNESIUM BLOOD (09/26/2014 5:59 AM FINANCIAL SOLUTIONS ADVISOR) Only the most recent of3 resultswithin the time period is included. Magnesium 1.3(L) 1.6 - 2.6 mg/dL 09/26/2014 8:13 AM FINANCIAL SOLUTIONS ADVISOR [facility] Blood BLOOD SPECIMEN / Unknown 09/26/2014 5:59 AM FINANCIAL SOLUTIONS ADVISOR 09/26/2014 8:01 AM FINANCIAL SOLUTIONS ADVISOR Bushra Gan MD LAB - CHEMISTRY ADRIANAE JOSE ARMANDO Performing Organization Address [facility] Co de Phone Number [facility] [address] [place] [address] * CULTURE BLOOD (09/25/2014 12:23 PM FINANCIAL SOLUTIONS ADVISOR) Only the most recent of8 resultswithin the time period is included. Culture No Growth SHERLYN 10/01/2014 4:35 AM FINANCIAL SOLUTIONS ADVISOR [facility] Blood PERIPHERAL BLOOD / Unknown Lab Venipuncture / Unknown 09/25/2014 12:23 PM FINANCIAL SOLUTIONS ADVISOR 09/25/2014 12:28 PM FINANCIAL SOLUTIONS ADVISOR Bushra Gan MD LAB - MICROBIOLOGY O RDERABLES Performing Organization Address City/[facility] Co de Phone Number [facility] [address] [place] [address], [facility] * XR CHEST 1VW PORTABLE (09/25/2014 10:30 AM FINANCIAL SOLUTIONS ADVISOR) Only the most recent of3 resultswithin the time period is included. Anatomical Region Laterality Modality Chest Radiographic Romy ging 09/25/2014 10:5 2 AM FINANCIAL SOLUTIONS ADVISOR Narrative 09/25/2014 11:17 AM FINANCIAL SOLUTIONS ADVISOR AP PORTABLE CHEST 09/25/2014 AT 1023 HOURS [...] * (ABNORMAL) HEMOGLOBIN A1C (09/24/2014 1:09 AM FINANCIAL SOLUTIONS ADVISOR) Hemoglobin A1c 7.5(H) 4.2 - 6.3 % 09/24/2014 1:44 AM FINANCIAL SOLUTIONS ADVISOR [facility] Estimated Average Glucose 169 mg/dL 09/24/2014 1:44 AM [facility] Whole Blood BLOOD SPECIMEN WITH EDTA / Unknown 09/24/2014 1:09 AM FINANCIAL SOLUTIONS ADVISOR 09/24/2014 1:15 AM FINANCIAL SOLUTIONS ADVISOR Breanna Schultz MD LAB - CHEMISTRY O KATY [facility] [address] [place] [address] * (ABNORMAL) RENAL FUNCTION PANEL (09/24/2014 1:08 AM FINANCIAL SOLUTIONS ADVISOR) Glucose 298(H) 74 - 106 mg/dL 09/24/2014 1:33 AM FINANCIAL SOLUTIONS ADVISOR [facility] Sodium 139 136 - 145 mmol/L 09/24/2014 1:33 AM FINANCIAL SOLUTIONS ADVISOR [facility] Potassium 3.5 3.5 - 5.1 mmol/L 09/24/2014 1:33 AM [facility] Chloride 106 98 - 107 mmol/L 09/24/2014 1:33 AM [facility] CO2 24 22 - 31 mmol/L 09/24/2014 1:33 AM [facility] Calcium 8.3(L) 8.5 - 10.1 mg/dL 09/24/2014 1:33 AM [facility] Anion Gap 9 5 - 15 mmol/L 09/24/2014 1:33 AM [facility] BUN 28(H) 7 - 21 mg/dL 09/24/2014 1:33 AM [facility] Creatinine 0.92 0.50 - 1.30 mg/dL 09/24/2014 1:33 AM [facility] Albumin 2.3(L) 3.4 - 5.0 gm/dL 09/24/2014 1:33 AM [facility] Phosphorus 3.1 2.5 - 4.9 mg/dL 09/24/2014 1:33 AM [facility] eGFR by MDRD >60 >60 mL/min/1.7 3m2 09/24/2014 1:33 AM [facility] eGFR by MDRD >60 >60 mL/min/1.7 3m2 09/24/2014 1:33 AM [facility] Blood BLOOD SPECIMEN / Unknown 09/24/2014 1:08 AM FINANCIAL SOLUTIONS ADVISOR 09/24/2014 1:15 AM FINANCIAL SOLUTIONS ADVISOR Veronica Almonte MD LAB - CHEMISTRY RUIZ SUÁREZ Performing Organization Address City/[facility] Co de Phone Number [facility] [address] [place] [phone] * LACTIC ACID BLOOD (09/24/2014 1:08 AM FINANCIAL SOLUTIONS ADVISOR) Only the most recent of3 resultswithin the time period is included. Lactic Acid 1.8 0.7 - 2.1 mmol/L 09/24/2014 1:37 AM [facility] Comment: Blood BLOOD SPECIMEN / Unknown 09/24/2014 1:08 AM FINANCIAL SOLUTIONS ADVISOR 09/24/2014 1:15 AM FINANCIAL SOLUTIONS ADVISOR Veronica Almonte MD LAB - CHEMISTRY RUIZ SUÁREZ Performing Organization Address City/[facility] Co de Phone Number [facility] [address] [place] [phone] * CULTURE MRSA (09/23/2014 1:39 PM FINANCIAL SOLUTIONS ADVISOR) Only the most recent of2 resultswithin the time period is included. Culture Negative for MRSA SHERLYN 09/24/2014 7:41 PM FINANCIAL SOLUTIONS ADVISOR [facility] Microbiology SPECIMEN FROM NASAL FOSSAE / Unknown Collection / Unknown 09/23/2014 1:39 PM FINANCIAL SOLUTIONS ADVISOR 09/23/2014 2:01 PM FINANCIAL SOLUTIONS ADVISOR Veronica Almonte MD LAB - MICROBIOLOGY O RDBLU Performing Organization Address [facility] Co de Phone Number [facility] [address] [place], [place] [id number] [place] [address] * CULTURE VRE (09/23/2014 1:38 PM FINANCIAL SOLUTIONS ADVISOR) Culture Negative for VRE SHERLYN 09/24/2014 7:41 PM FINANCIAL SOLUTIONS ADVISOR [facility] Stool RECTAL SWAB / Unknown Collection / Unknown 09/23/2014 1:38 PM FINANCIAL SOLUTIONS ADVISOR 09/23/2014 2:01 PM FINANCIAL SOLUTIONS ADVISOR Veronica Almonte MD LAB - MICROBIOLOGY O RDERABLES Performing Organization Address [facility] Co de Phone Number [facility] [address] [facility] [address] * ECHOCARDIOGRAM 2D WITH DOPPLER (09/23/2014 10:32 AM FINANCIAL SOLUTIONS ADVISOR) 09/23/2014 10:3 2 AM FINANCIAL SOLUTIONS ADVISOR Narrative [facility] - 09/23/2014 2:38 PM FINANCIAL SOLUTIONS ADVISOR Transthoracic Echocardiogram 2D, M-mode, Doppler, and Color Doppler Patient: MIRTA PARNELL MR number: [id number] Height: 62 in Weight: 183.7 lb BSA: 1.85 m?? Study date: 23-Sep-2014 : 1945 Age: 69 years Gender: Female Race: Referring Physician: ??Blane Villeda MD Production Metal Sprayer: ??Kristin Hernandez [facility] Reading Physician: ??Gurinder Martinez MD, [facility], [facility] Summary: - ??Clinical question: - ??Acute respiratory [...] Prepared and signed by Gurinder Martinez MD, [facility], [facility] Signed 23-Sep-2014 14:38:38 Procedure Note Gurinder Martinez MD - 09/23/2014 Transthoracic Echocardiogram 2D, M-mode, Doppler, and Color Doppler Patient: MIRTA PARNELL MR number: [id number] Height: 62 in Weight: 183.7 lb BSA: 1.85 m?? Study date: 23-Sep-2014 : 1945 Age: 69 years Gender: Female Race: Referring Physician: Blane Villeda MD Production Metal Sprayer: Kristin Hernandez RDCS Reading Physician: Gurinder Martinez MD, [facility], [facility] Summary: - Clinical question: - Acute respiratory [...] Prepared and signed by Gurinder Martinez MD, [facility], FAC Signed 23-Sep-2014 14:38:38 Blane Villeda MD ECHO ORDERABLES [facility] [address] [place] [address] * (ABNORMAL) TROPONIN I (09/23/2014 5:13 AM FINANCIAL SOLUTIONS ADVISOR) Only the most recent of2 resultswithin the time period is included. Troponin I 1.270(HH) 0.000 - 0.049 ng/mL 09/23/2014 5:34 AM FINANCIAL SOLUTIONS ADVISOR [facility] Blood BLOOD SPECIMEN / Unknown Venipuncture / Unknown 09/23/2014 5:13 AM FINANCIAL SOLUTIONS ADVISOR 09/23/2014 5:13 AM FINANCIAL SOLUTIONS ADVISOR Narrative [facility] - 09/23/2014 5:34 AM [facility] Note: Diagnosis of myocardial infarction [...] - CHEMISTRY O RDBLU Performing Organization Address [facility] Co de Phone Number [facility] [address] [place] [address] * (ABNORMAL) B-TYPE NATRIURETIC PEPTIDE (09/23/2014 5:13 AM FINANCIAL SOLUTIONS ADVISOR) BNP 821(H) 0 - 100 pg/mL 09/23/2014 6:50 AM [facility] Blood BLOOD SPECIMEN / Unknown Venipuncture / Unknown 09/23/2014 5:13 AM FINANCIAL SOLUTIONS ADVISOR 09/23/2014 5:13 AM FINANCIAL SOLUTIONS ADVISOR Narrative [facility] - 09/23/2014 6:50 AM FINANCIAL SOLUTIONS ADVISOR A cutoff of 100 pg/ml has been [...] - CHEMISTRY O KATY Performing Organization Address [facility] Co de Phone Number [facility] [address] [place] [address] * (ABNORMAL) BLOOD GASES ART (09/23/2014 5:09 AM FINANCIAL SOLUTIONS ADVISOR) pH Arterial 7.39 7.35 - 7.45 pH 09/23/2014 9:05 AM FINANCIAL SOLUTIONS ADVISOR [facility] RESP THERAPY pCO2 Arterial 34(L) 35 - 45 mm hg 09/23/2014 9:05 AM FINANCIAL SOLUTIONS ADVISOR [facility] RESP THERAPY pO2 Arterial 111(H) 80 - 100 mm hg 09/23/2014 9:05 AM FINANCIAL SOLUTIONS ADVISOR [facility] RESP THERAPY HCO3 Arterial 20(L) 22 - 26 mmol/L 09/23/2014 9:05 AM FINANCIAL SOLUTIONS ADVISOR [facility] RESP THERAPY BE Arterial -4.1(L) -2.0 - 2.0 mmol/L 09/23/2014 9:05 AM [facility] RESP THERAPY O2 Saturation Arterial 98 90 - 100 % 09/23/2014 9:05 AM [facility] RESP THERAPY Mode Bipap 09/23/2014 9:05 AM [facility] RESP THERAPY Kevin's Test Yes 09/23/2014 9:05 AM [facility] RESP THERAPY BIPAP Exp Pressure (cmH2O) 5 09/23/2014 9:05 AM [facility] RESP THERAPY BIPAP Insp Pressure (cmH2O) 10 09/23/2014 9:05 AM [facility] RESP THERAPY FI O2 45 % 09/23/2014 9:05 AM [facility] RESP THERAPY Respiratory Rate 12 09/23/2014 9:05 AM [facility] RESP THERAPY Sample Site Right RA 09/23/2014 9:05 AM [facility] RESP THERAPY Sample Type arterial 09/23/2014 9:05 AM [facility] RESP THERAPY Blood ARTERIAL BLOOD SPECIMEN / Unknown 09/23/2014 5:09 AM FINANCIAL SOLUTIONS ADVISOR 09/23/2014 5:09 AM FINANCIAL SOLUTIONS ADVISOR Narrative [facility] RESP THERAPY - 09/23/2014 9:05 AM FINANCIAL SOLUTIONS ADVISOR [facility]G DRAWN @[facility]/ [facility] Breanna Schultz MD LAB - BLOOD GASES ORDERABLES Performing Organization Address [facility] Co de Phone Number [facility] RESP THERAPY [address] [place] [address] * (ABNORMAL) URINALYSIS MICROSCOPIC ONLY W/REFLEX CULTURE (09/23/2014 12:11 AM FINANCIAL SOLUTIONS ADVISOR) RBC UA 5-10(A) 0-2, 2-5 # /hpf 09/23/2014 12:31 AM [facility] Hyaline Casts 0-2 0 - 2 # /lpf 09/23/2014 12:31 AM [facility] Urine URINE SPECIMEN COLLECTION, CATHETERIZED / Unknown 09/23/2014 12:11 AM FINANCIAL SOLUTIONS ADVISOR 09/23/2014 12:15 AM FINANCIAL SOLUTIONS ADVISOR Beryl Carlisle APRN-DE ALCOHOLIZER LAB - URINALYSIS O RDERABLES Performing Organization Address City/[facility]/ZIP Co de Phone Number [facility] [address] [place] [address] * (ABNORMAL) URINALYSIS ROUTINE W/REFLEX TO CULTURE (09/23/2014 12:11 AM [facility]) Color UA Yellow Straw, Yellow, Dark Yellow 09/23/2014 12:23 AM [facility] Clarity UA Turbid 09/23/2014 12:23 AM [facility] Specific [place] UA >1.030(H) 1.005 - 1.030 09/23/2014 12:23 AM [facility] pH UA 5.5 5.0 - 8.0 pH 09/23/2014 12:23 AM [facility] Protein UA 3+(A) Negative 09/23/2014 12:23 AM [facility] Blood UA 3+(A) Negative 09/23/2014 12:23 AM [facility] Leukocyte UA 2+(A) Negative 09/23/2014 12:23 AM [facility] Nitrite UA Negative Negative 09/23/2014 12:23 AM [facility] Glucose UA 3+(A) Negative 09/23/2014 12:23 AM [facility] Ketone UA Negative Negative 09/23/2014 12:23 AM [facility] Bilirubin UA Negative Negative 09/23/2014 12:23 AM [facility] Urobilinogen UA 0.2 0.1 - 1.0 EU/dL 09/23/2014 12:23 AM [facility] WBC UA Auto >100(A) 0-2, 2-5 #/hpf 09/23/2014 12:23 AM [facility] RBC UA Auto Reflex to manual(A) 0-2, 2-5 #/hpf 09/23/2014 12:23 AM [facility] Epithelial Cell UA Auto 5-10(A) 0-2, 2-5 #/hpf 09/23/2014 12:23 AM [place] [facility] Bacteria UA Auto 4+(A) None seen 09/23/2014 12:23 AM [facility] Yeast UA Auto Reflex to manual(A) None seen 09/23/2014 12:23 AM [facility] Hyaline Casts UA Auto Reflex to manual(A) 0 - 2 #/lpf 09/23/2014 12:23 AM [facility] Reflex Status Culture to follow 09/23/2014 12:23 AM [facility] Urine URINE SPECIMEN COLLECTION, CATHETERIZED / Unknown 09/23/2014 12:11 AM FINANCIAL SOLUTIONS ADVISOR 09/23/2014 12:15 AM FINANCIAL SOLUTIONS ADVISOR Beryl Carlisle [employer] - URINALYSIS O RDERABLES Performing Organization Address [facility] Co de Phone Number [facility] [address] [place] [address] * (ABNORMAL) CULTURE URINE (09/23/2014 12:11 AM FINANCIAL SOLUTIONS ADVISOR) Culture >100,000 CFU/mL Klebsiella pneumoniae ssp pneumoniae(A) SHERLYN 09/26/2014 6:01 AM FINANCIAL SOLUTIONS ADVISOR [facility] Urine URINE SPECIMEN COLLECTION, CATHETERIZED / Unknown 09/23/2014 12:11 AM FINANCIAL SOLUTIONS ADVISOR 09/23/2014 12:15 AM FINANCIAL SOLUTIONS ADVISOR Narrative Organism Antibiotic Method Susceptibility Klebsiella pneumoniae [...] le SHERLYN >=320 ug/mL: Resistant Beryl Carl[facility] - MICROBIOLOGY ORDERABLES Performing Organization Address City/[facility]/ZIP Co de Phone Number [facility] [address] [place] [address], [facility] * CT ABDOMEN AND PELVIS WITH IV CONTRAST (09/22/2014 11:43 PM FINANCIAL SOLUTIONS ADVISOR) Anatomical Region Laterality Modality Abdomen, Pelvis Computed Tomogra phy 09/23/2014 7:26 AM FINANCIAL SOLUTIONS ADVISOR Narrative 09/23/2014 7:[address]CIAL SOLUTIONS [address] ABDOMEN AND PELVIS HISTORY: Flank pain [...] (ABNORMAL) COMPREHENSIVE METABOLIC PANEL (09/22/2014 10:45 PM FINANCIAL SOLUTIONS ADVISOR) Glucose 297(H) 74 - 106 mg/dL 09/22/2014 10:59 PM [facility] Sodium 137 136 - 145 mmol/L 09/22/2014 10:59 PM [facility] Potassium 3.7 3.5 - 5.1 mmol/L 09/22/2014 10:59 PM [facility] Chloride 101 98 - 107 mmol/L 09/22/2014 10:59 PM [facility] CO2 25 22 - 31 mmol/L 09/22/2014 10:59 PM [facility] Calcium 8.6 8.5 - 10.1 mg/dL 09/22/2014 10:59 PM [facility] Anion Gap 11 5 - 15 mmol/L 09/22/2014 10:59 PM [facility] BUN 28(H) 7 - 21 mg/dL 09/22/2014 10:59 PM [facility] Creatinine 1.62(H) 0.50 - 1.30 mg/dL 09/22/2014 10:59 PM [facility] eGFR by MDRD 32(L) >60 mL/min/1.7 3m2 09/22/2014 10:59 PM [facility] eGFR by MDRD 38(L) >60 mL/min/1.7 3m2 09/22/2014 10:59 PM [facility] Alkaline Phosphatase 26(L) 38 - 126 U/L 09/22/2014 10:59 PM [facility] ALT 13 12 - 78 U/L 09/22/2014 10:59 PM [facility] AST 14 5 - 40 U/L 09/22/2014 10:59 PM [facility] Protein Total 6.9 6.4 - 8.2 gm/dL 09/22/2014 10:59 PM [facility] Albumin 2.7(L) 3.4 - 5.0 gm/dL 09/22/2014 10:59 PM FINANCIAL SOLUTIONS ADVISOR [facility] Bilirubin Total 0.4 0.2 - 1.0 mg/dL 09/22/2014 10:59 PM FINANCIAL SOLUTIONS ADVISOR [facility] Blood BLOOD SPECIMEN / Unknown Venipuncture / Unknown 09/22/2014 10:45 PM FINANCIAL SOLUTIONS ADVISOR 09/22/2014 10:45 PM FINANCIAL SOLUTIONS ADVISOR Beryl Carlisle APRN-DE [facility]OL[facility] LAB - CHEMISTRY OR DERABLES Performing Organization Address [facility] Co de Phone Number [facility] [address] [place] [address] * PHOSPHORUS BLOOD (09/22/2014 10:45 PM FINANCIAL SOLUTIONS ADVISOR) Phosphorus 3.5 2.5 - 4.9 mg/dL 09/22/2014 10:59 PM FINANCIAL SOLUTIONS ADVISOR [facility] Comment: Blood BLOOD SPECIMEN / Unknown Venipuncture / Unknown 09/22/2014 10:45 PM FINANCIAL SOLUTIONS ADVISOR 09/22/2014 10:45 PM FINANCIAL SOLUTIONS ADVISOR Beryl Carlisle APRN[facility] - CHEMISTRY OR DERABLES Performing Organization Address [facility] de Phone Number [facility] [address] [place] [address] * (ABNORMAL) LIPASE BLOOD (09/22/2014 10:45 PM FINANCIAL SOLUTIONS ADVISOR) Lipase 57(L) 73 - 393 U/L 09/23/2014 2:04 AM FINANCIAL SOLUTIONS ADVISOR [facility] Comment: Blood BLOOD SPECIMEN / Unknown 09/22/2014 10:45 PM FINANCIAL SOLUTIONS ADVISOR 09/23/2014 1:54 AM FINANCIAL SOLUTIONS ADVISOR Breanna Schultz MD LAB - CHEMISTRY O RDERABLES Performing Organization Address [facility] Co de Phone Number [facility] [address] [place] [address] * PTT (09/22/2014 9:44 PM FINANCIAL SOLUTIONS ADVISOR) PTT 22.9 21.0 - 32.0 sec 09/22/2014 10:27 PM FINANCIAL SOLUTIONS ADVISOR [facility] Blood BLOOD SPECIMEN / Unknown Venipuncture / Unknown 09/22/2014 9:44 PM FINANCIAL SOLUTIONS ADVISOR 09/22/2014 10:00 PM FINANCIAL SOLUTIONS ADVISOR Narrative [facility] - 09/22/2014 10:27 PM FINANCIAL SOLUTIONS ADVISOR Therapeutic Range for PTT: ??44.4 - 78.3 seconds. Beryl Carlisle [facility] - COAGULATION ORDERABLES Performing Organization Address [facility] Co de Phone Number [facility] [address] [place] [phone] * (ABNORMAL) PT-INR (09/22/2014 9:44 PM FINANCIAL SOLUTIONS ADVISOR) PT 11.6 9.5 - 11.6 sec 09/22/2014 10:27 PM [facility] INR 1.12(H) 0.9 - 1.1 09/22/2014 10:27 PM [facility] Blood BLOOD SPECIMEN / Unknown Venipuncture / Unknown 09/22/2014 9:44 PM FINANCIAL SOLUTIONS ADVISOR 09/22/2014 10:00 PM [facility] - 09/22/2014 10:27 PM [facility] Conventional Anticoagulant Therapy INR Reference Ranges: ??2.0-3.0 Intensive Anticoagulant Therapy INR Reference Ranges: ? 2.5-3.5 Beryl Carlisle [facility] - COAGULATION ORDERABLES Performing Organization Address [facility] Co de Phone Number [facility] [address] [place] [address] * (ABNORMAL) CBC W MANUAL DIFFERENTIAL (09/22/2014 9:44 PM FINANCIAL SOLUTIONS ADVISOR) WBC 20.6(H) 4.4 - 10.7 x10^9/L 09/22/2014 10:06 PM [facility] RBC 4.09 3.80 - 5.20 x10^12/L 09/22/2014 10:06 PM [facility] Hemoglobin 11.4(L) 12.0 - 15.6 gm/dL 09/22/2014 10:06 PM [facility] Hematocrit 34.4(L) 35.9 - 45.5 % 09/22/2014 10:06 PM [facility] MCV 84.1 80.7 - 98.3 fl 09/22/2014 10:06 PM [facility] MCH 27.9 26.7 - 34.0 pg 09/22/2014 10:06 PM [facility] MCHC 33.1 30.8 - 35.9 gm/dL 09/22/2014 10:06 PM [facility] RDW-CV 15.1(H) 12.1 - 14.9 % 09/22/2014 10:06 PM [facility] MPV 9.9 9.4 - 12.9 fl 09/22/2014 10:06 PM [facility] Platelet Count 310 153 - 416 x10^9/L 09/22/2014 10:06 PM [facility] Blood BLOOD SPECIMEN / Unknown Venipuncture / Unknown 09/22/2014 9:44 PM FINANCIAL SOLUTIONS ADVISOR 09/22/2014 10:00 PM [facility] Beryl Carlisle APRN-DE ALCOHOLIZER LAB - HEMATOLOGY O RDERABLES Performing Organization Address City/[facility] Co de Phone Number [facility] [address] [place] [address] * EKG 12-LEAD (09/22/2014 9:04 PM [facility]) Ventricular Rate 73 BPM [facility] Atrial Rate 73 BPM [facility] P-R Interval 144 ms [facility] QRS Duration ms 86 ms [facility] Q-T Interval ms 464 ms [facility] QTC Calculation (Bezet) 511 ms [facility] Calculated P [place] 13 degrees [facility] Calculated R [place] -10 degrees [facility] Calculated T [place] -13 degrees [facility] Interpretation EKG NORMAL SINUS RHYTHM MODERATE VOLTAGE CRITERIA FOR LVH, MAY BE NORMAL VARIANT NONSPECIFIC ST AND T WAVE ABNORMALITY PROLONGED QT ABNORMAL ECG NO PREVIOUS ECGS AVAILABLE Confirmed by Albina Vasquez ([id number]) on 09/23/2014 8:10:33 AM [facility] 09/22/2014 9:04 PM FINANCIAL SOLUTIONS ADVISOR 09/23/2014 8:10 AM [facility] Beryl ESPARZA ECG ORDERABLES Performing Organization Address City/[facility]/ZIP Co de Phone Number [facility] Care Teams Dishwasher Preparer Relationship Specialty Start Date End Date Jameson Patterson MD [address] [address] PCP - General Internal Medicine 09/22/14 Kimberly Owen RN Tongue Binder 09/23/14
== END 2024-12-11 10:38 | disposition home or self-care (01) ==
PROVIDERS: PCP Emergency Medicine; Visit Provider Emergency Medicine
DX: R22.41 Localized swelling, mass and lump, right lower limb (principal); S72.421D Displaced fracture of lateral condyle of right femur, subsequent encounter for closed fracture with routine healing; X58.XXXD Exposure to other specified factors, subsequent encounter
CPT/HCPCS: 73718

== ENCOUNTER 2025-04-07 13:20 | Outpatient (CLI) | payer MEDICARE, SELFPAY ==
--- OUTSIDE RECORDS SUMMARY | 2025-04-07 13:23 | XMS_ITS | Clinical Summary ---
Author Organization [facility] [employer] Address [address] [place] [address] Care Team Providers Care Barley Steeper Name Role Phone Jameson Patterson MD Primary Care Provider [phone] Kimberly Owen RN Unavailable [phone] Source Comments [facility] [employer],non-owned Affiliates and Associated Physician Practices is amultiple site organization consisting of ambulatory clinics and hospital sitesin [place], [place], [place] and [place]. This disclosure is being madepursuant to the Care Everywhere program and may not contain all information available regarding this patient. Last updated 18.[facility] [employer] Allergies Active Allergy Reactions Criticality Noted Date Comments Tramadol 09/23/2014 Medications * Be aware that medications may not be up to date on this document. Alwaysverify current medications with the patient. gemfibrozil (LOPID) 600 MG tablet Take 600 [...] the rectum every 4 hours as needed. 09/29/20 14 Active aspirin (ASPIRIN) 325 MG tablet Take 1 Tab by mouth once daily. 09/29/20 14 Active venlafaxine (EFFEXOR) 37.5 MG tablet Take 1 Tab by mouth 2 times daily with morning and evening meal. 60 Tab 0 09/29/20 14 Active amLODIPine (NORVASC) 10 MG tablet Take 1 Tab by mouth once daily. 30 Tab 0 09/29/20 14 Active polyethylene glycol 3350 (MIRALAX) packet Take 17 g by mouth once daily as needed for Constipation. 09/29/20 14 Active senna-docusate (SENOKOT-S) 8.6-50 MG tablet Take 1 Tab by mouth once daily as needed for Constipation. 60 Tab 0 09/29/20 14 Active Active Problems Problem Noted Date Diagnosed Date CHF (congestive heart failure) 10/03/2014 Overview (10/03/2014): Added per clinical streaming media specialist per Dr. Vasquez note on 09/23 S/P PICC central line placement 09/29/2014 Overview (09/29/2014): [facility] VAT Abdominal pain, other specified site 09/23/2014 Assessment & Plan (09/23/2014 7:20 AM SUPERVISING BAILIFF): - Located in the lower back and radiating to the lower abdomen - CT abd not c/w pancreatitis, no obstruction - DDx will include UTI/Pyelo vs ischemic bowel Plan: - Continue IVF, Zosyn - LA trend - F/u CT abd/pelvis read Gram-negative sepsis 09/23/2014 Assessment & Plan (09/23/2014 4:20 PM SUPERVISING BAILIFF): - WBC, Hypotension, LA present on arrival - CXR wass clear, UA c/w UTI - on Zosyn for coverage of gram negatives and anerobes Plan: -f/u BC, UC, LA trend -Cont Zosyn Elevated troponin I level 09/23/2014 Assessment & Plan (09/23/2014 4:20 PM SUPERVISING BAILIFF): - Trop I leak, now downtrending - EKG: NSR, NSTWA, QT 511 - likely 2/2 demand ischemia vs NSTEMI Plan: - ASA 325(home dose continued), Statin Acute respiratory distress 09/23/2014 Assessment & Plan (09/23/2014 4:22 PM SUPERVISING BAILIFF): - Pt received up to 4.5L of IVF - In 4:30 am developed res distress with wheezing and inspiratory crackles bibasilar - Ddx: fluid overload vs compensation for met acidosis vs anxiety - Received 40 lasix, 125 of Solumedrol, breathing treatment(duoneb) - ABG with Acidosis 7.29, pCO2 33, Po2 99--> repeat ABG on bipap showed /39, CO2 34, HCO3 20, O2 111 Plan: - BipAP with 10/5--> switch to NC - diuresis as needed - transfer to ICU for closer monitoring Diabetes mellitus 09/23/2014 Assessment & Plan (09/23/2014 7:24 AM SUPERVISING BAILIFF): - Home meds need to be verified by pharmacy Plan: - Lantus 10 U, Accuchecks and SSI BERNY (acute kidney injury) 09/23/2014 Assessment & Plan (09/23/2014 7:23 AM SUPERVISING BAILIFF): - No Baseline Cr on file - was on IVF but stopped due to pulm edema Plan: - Hold lisinopril DVT prophylaxis 09/23/2014 Overview (02/09/2023): Regulatory Import 02/08/23 Assessment & Plan (09/23/2014 5:39 AM SUPERVISING BAILIFF): - Heparin TID HTN (hypertension) 09/23/2014 Assessment & Plan (09/23/2014 5:39 AM SUPERVISING BAILIFF): - Hold lisinopril HLD (hyperlipidemia) 09/23/2014 Assessment & Plan (09/23/2014 5:39 AM SUPERVISING BAILIFF): - Atorvastatin 40 mg Resolved Problems Problem Noted Date Diagnosed Date Resolved Date Pyelonephritis, acute 09/23/20142013 Immunizations Immunization Administration Dates Next Due INFLUENZA VACCINE, CELL [...] drink = 0.6 oz pur e alcohol) Comments Unknown Sex and Gender Information Value Date Recorded Sex Assigned at Not on file Legal Sex Female 7:30 PM SUPERVISING BAILIFF Gender Identity Not on file Sexual Orientation Not on file Last Filed Vital Signs Vital Sign Reading Time Taken Comments Blood Pressure 143/80 09/29/2014 4:27 PM SUPERVISING BAILIFF Pulse 79 09/29/2014 4:27 PM SUPERVISING BAILIFF Temperature 36.8 C (98.2 F) 09/29/2014 4:27 PM SUPERVISING BAILIFF Respiratory Rate 19 09/29/2014 4:27 PM SUPERVISING BAILIFF Oxygen Saturation 98% 09/29/2014 4:27 PM SUPERVISING BAILIFF Inhaled Oxygen Concentration 45% 09/23/2014 8 :43 AM SUPERVISING BAILIFF Weight 84.1 kg (185 lb 6.4 oz) 09/28/2014 4:32 A M SUPERVISING BAILIFF Height 157.5 cm (5' 2) 09/27/2014 1:12 AM SUPERVISING BAILIFF Body Mass Index 33.91 09/27/2014 1:12 AM SUPERVISING BAILIFF Plan of Treatment Health Maintenance Due Date Last Done Comments BONE DENSITY TESTING 1945 HEPATITIS C SCREENING 04/05/1965 DTAP/TDAP/TD VACCINES (1 - Tdap) 1966 ZOSTER VACCINE (1 of 2) 1997 PNEUMOCOCCAL VACCINE 50+ (2 of 2 - PCV) 09/24/2015 09/24/2014 Respiratory Syncytial Virus (RSV) Vaccine Pt: or over 60 yrs (1 - 1-dose 75+ series) 2022 COVID-19 VACCINE (1 - 4-2 5 season) 2024 DEPRESSION SCREENING 11/10/2024 INFLUENZA VACCINE (Season Ended) 2025 09/24/20 14 HEPATITIS B VACCINE Aged Out No longe r eligible based on patient's age to complete this topic HIB VACCINE Aged Out No longer eligi ble based on patient's age to complete this topic HPV VACCINE Aged Out No longer eligi ble based on patient's age to complete this topic MENINGOCOCCAL (Group B) VACC INE SHARED DECISION-MAKING Aged Out No longer eligibl e based on patient's age to complete this topic MENINGOCOCCAL GROUPS A/C/Y/W VACCINE Aged Out No longer eligible b ased on patient's age to complete this topic Insurance [place] [id number] MEDICARE [facility] Advance Directives * LIMITED RESUSCITATION-PRIOR AND AFTER [...] 5:05 AM 09/23/2014 10:26 AM Care Teams Barley Steeper Relationship Specialty Start Date End Date Jameson Patterson MD [address] [address] PCP - General Internal Medicine 09/22/14 Kimberly Owen, RN [address] [employer] 09/23/14
--- OUTSIDE RECORDS SUMMARY | 2025-04-07 13:23 | XMS_ITS | Clinical Summary ---
Author Organization [facility] Address [address] [place] [address] Phone Care Team Providers Care Professor Of Astronomy Name Role Phone Jose Ross MD Primary Care Provider [phone] Allergies No known active allergies Medications OMEPRAZOLE ORAL Take by mouth. Active glipizide/metfor min HCl (GLIPIZIDE-METFO RMIN ORAL) Take by mouth. Active amlodipine besylate (AMLODIPINE ORAL) Take by mouth. Active venlafaxine HCl (VENLAFAXINE ORAL) Take by mouth. Active donepezil HCl (DONEPEZIL ORAL) Take by mouth. Active losartan potassium (LOSARTAN ORAL) Take by mouth. Active pravastatin sodium (PRAVASTATIN ORAL) Take by mouth. Active GABAPENTIN ORAL Take by mouth. Active zolpidem tartrate (ZOLPIDEM ORAL) Take by mouth. Active MAGNESIUM CITRATE ORAL Take by mouth. Active Encounters Date Type Department Care Team Description 03/31/2025 External Device Data [facility] ABSTRACTION Provider, Abstract 03/30/2025 External Device Data [facility] ABSTRACTION Provider, Abstract 03/30/2025 External Device Data [facility] ABSTRACTION Provider, Abstract 03/29/2025 External Device Data [facility] ABSTRACTION Provider, Abstract 03/15/2025 External Device Data [facility] ABSTRACTION Provider, Abstract 03/08/2025 External Device Data [facility] ABSTRACTION Provider, Abstract 03/08/2025 External Device Data [facility] ABSTRACTION Provider, Abstract 03/08/2025 External Device Data [facility] ABSTRACTION Provider, Abstract 03/03/2025 11:33 AM CDT - 03/03/2025 2:41 PM CDT Emergency [facility] Emergency Department [address] [place] [address] Fall, initial encounter (Primary Dx); Blunt head trauma, initial encounter Discharge Disposition: Home or Self Care 03/03/2025 Travel from Last 3 Months Social History Tobacco Use Types Packs/Day Years Used Date Smoking Tobacco: Former Cigarettes Q uit: 03/03/1960 Smokeless Tobacco: Never Tobacco Cessation:Counseling Given: Not Answered Alcohol Use Standard Drinks/Week Comments Not Currently 0 (1 standard drink = 0.6 oz pur e alcohol) Feeling Safe Answer Date Recorded Are you in a relationship wi th someone who hurts you emotionally and/or physically? No 03/03/2025 Comments Unknown Sex and Gender Information Value Date Recorded Sex Assigned at Not on file Legal Sex Female 11:31 AM CDT Gender Identity Not on file Sexual Orientation Not on file Last Filed Vital Signs Vital Sign Reading Time Taken Comments Blood Pressure 137/51 03/03/2025 12:37 PM CDT Pulse - - Temperature 37 C (98.6 F) 03/03/2025 12:37 PM CDT Respiratory Rate 20 03/03/2025 12:37 PM CDT Oxygen Saturation 100% 03/03/2025 12:37 PM CDT Inhaled Oxygen Concentration - - Weight 72.1 kg (159 lb) 03/03/2025 12:37 PM CDT Height 154.9 cm (5' 1) 03/03/2025 12:37 PM CDT Body Mass Index 30.04 03/03/2025 12:37 PM CDT Plan of Treatment Health Maintenance Due Date Last Done Comments DIABETES ANNUAL FOOT EXAM 1965 DIABETES ANNUAL RETINAL EXAM 1965 DIABETES MICROALBUMIN ANNUAL SCREEN 1965 LDL CHOLESTEROL ANNUAL 1965 DTAP/TDAP/TD VACCINES (1 - Tdap) 1966 ZOSTER VACCINE (1 of 2) 1997 OSTEOPOROSIS SCREENING 2012 DIABETES HBA1C Q 6 MONTHS 03/24/2015 09/24/2014 PNEUMOCOCCAL VACCINE 50+ YEARS (2 of 2 - PCV) 09/24/20 15 09/24/2014 RSV VACCINE (60+ or ) (1 - 1-dose 75+ series) 2022 INFLUENZA VACCINE (#1) 2024 09/24/2014 Procedures Procedure Name Priority Date/Time Associated Diagnosis Comments CT HEAD CERVICAL SPINE WO CONTRAST Stat 03/03/2025 1:22 PM CDT EKG 12-LEAD Stat 03/03/2025 12:53 PM CDT COMPREHENSIVE METABOLIC PANEL Stat 03/03/2025 11:46 AM CDT CBC WITH DIFFERENTIAL Stat 03/03/2025 11:46 AM CDT from Last 3 Months Results * CT HEAD CERVICAL SPINE WO CONTRAST (03/03/2025 1:22 PM CDT) Anatomical Region Laterality Modality Head Computed Tomogra phy 03/03/2025 1:23 PM CDT Impressions 03/03/2025 1:31 PM CDT IMPRESSION: 1. No acute intracranial findings. 2. No evidence of acute fracture in the cervical spine. DICTATION LOCATION: Location [address] [place] [address] 03/03/2025 1:31 PM CDT EXAMINATION: CT HEAD CERVICAL SPINE WO CONTRAST DATE: 03/03/2025 1:22 PM HISTORY: Head trauma, minor (Age >= 65y); TECHNIQUE: CT of the head and cervical spine were performed without contrast according to standard protocol. The examination was performed with the adjustment of mA according to the patient size and/or the use of Iterative Reconstruction Technique. COMPARISON: No prior study is available for comparison at the time of this dictation. FINDINGS: Head: There is no evidence of acute hemorrhage, mass effect, or midline shift. The cruz-white junction is distinct. The ventricles are preserved. The basilar cisterns are patent. Chronic microvascular ischemic changes are noted. The calvarium appears intact. Cervical spine: Alignment: Normal. Craniocervical Junction: The craniocervical junction is normal. Bones: Vertebral bodies are normal in height without evidence of acute fracture. Degenerative Changes: Multilevel degenerative disc and facet disease is present. Disc bulging appears most prominent at C5/6 and C6/7. Soft tissues: No prevertebral swelling. Other Findings: There is atherosclerotic calcification of the carotid bifurcations. Procedure Note Jose Gibbs MD - 03/03/2025 EXAMINATION: CT HEAD CERVICAL SPINE WO CONTRAST DATE: 03/03/2025 1:22 PM HISTORY: Head trauma, minor (Age >= 65y); TECHNIQUE: CT of the head and cervical spine were performed without contrast according to standard protocol. The examination was performed with the adjustment of mA according to the patient size and/or the use of Iterative Reconstruction Technique. COMPARISON: No prior study is available for comparison at the time of this dictation. FINDINGS: Head: There is no evidence of acute hemorrhage, mass effect, or midline shift. The cruz-white junction is distinct. The ventricles are preserved. The basilar cisterns are patent. Chronic microvascular ischemic changes are noted. The calvarium appears intact. Cervical spine: Alignment: Normal. Craniocervical Junction: The craniocervical junction is normal. Bones: Vertebral bodies are normal in height without evidence of acute fracture. Degenerative Changes: Multilevel degenerative disc and facet disease is present. Disc bulging appears most prominent at C5/6 and C6/7. Soft tissues: No prevertebral swelling. Other Findings: There is atherosclerotic calcification of the carotid bifurcations. IMPRESSION: 1. No acute intracranial findings. 2. No evidence of acute fracture in the cervical spine. DICTATION LOCATION: Location [address] [place] [address] ORDERABLES Final Resul t * EKG 12-LEAD (03/03/2025 12:53 PM CDT) 03/03/2025 12:5 3 PM CDT Narrative INTERFACE SYSTEM - 03/03/2025 2:27 [place] [address] Test Date: 2025-03-03 Pat Name: JEANETTE MASSEY Department: 91 Room: 2443 Gender: Female Apparatus Lineman: marvin : 1945 Requested By: Order Number: [id number] Reading MD: Jameson Snider Measurements Intervals [place] Rate: 83 P: 58 UT: 150 QRS: -26 QRSD: 98 T: 70 QT: 438 QTc: 514 Interpretive Statements Normal sinus rhythm Possible Anterior infarct, age undetermined Abnormal ECG No previous ECG available for comparison Electronically Signed On 03-03-2025 14:27:21 CDT by Jameson Snider Procedure Note Provider, Historical - 03/03/2025 [facility] [place] [address] [place] [address] Test Date: 2025-03-03 Pat Name: JEANETTE MASSEY Department: 91 Room: 2443 Gender: Female Apparatus Lineman: marvin : 1945 Requested By: Order Number: [id number] Reading MD: Jameson Snider Measurements Intervals [place] Rate: 83 P: 58 UT: 150 QRS: -26 QRSD: 98 T: 70 QT: 438 QTc: 514 Interpretive Statements Normal sinus rhythm Possible Anterior infarct, age undetermined Abnormal ECG No previous ECG available for comparison Electronically Signed On 03-03-2025 14:27:21 CDT by Jameson Snider us eDjuan MARTIN ECG ORDERABLES Final Resul t INTERFACE SYSTEM Refer to clinic/hospital department * (ABNORMAL) CBC WITH DIFFERENTIAL (03/03/2025 11:46 AM CDT) WBC 11.7(H) 4.0 - 9.8 K/uL 03/03/2025 12:08 PM CDT [facility] RBC 4.54 3.90 - 4.90 M/uL 03/03/2025 12:08 PM CDT [facility] HEMOGLOBIN 11.9 11.8 - 14.8 g/dL 03/03/2025 12:08 PM CDT [facility] HEMATOCRIT 38.5 35.5 - 44.0 % 03/03/2025 12:08 PM CDT [facility] MCV 84.8 82.0 - 99.0 fL 03/03/2025 12:08 PM CDT [facility] MCH 26.2(L) 27.2 - 32.6 pg 03/03/2025 12:08 PM CDT [facility] MCHC 30.9(L) 31.5 - 35.5 g/dL 03/03/2025 12:08 PM CDT [facility] RDW 14.6(H) 11.5 - 14.5 % 03/03/2025 12:08 PM CDT [facility] RDW-STDEV 44.9 37.1 - 48.7 fL 03/03/2025 12:08 PM CDT [facility] PLATELETS 402(H) 140 - 350 K/uL 03/03/2025 12:08 PM CDT [facility] MPV 9.8 9.3 - 12.4 fL 03/03/2025 12:08 PM CDT [facility] NEUTROPHILS 65 % 03/03/2025 12:08 PM CDT [facility] LYMPHOCYTES 23 % 03/03/2025 12:08 PM CDT [facility] MONOCYTES 7 % 03/03/2025 12:08 PM CDT [facility] EOSINOPHILS 4 % 03/03/2025 12:08 PM CDT [facility] BASOPHILS 1 % 03/03/2025 12:08 PM CDT [facility] IMMATURE GRANULOCYTES 1 % 03/03/2025 12:08 PM CDT [facility] Comment:IG (Immature Granulo cyte) count includes Metamyelocytes, Myelocytes, and Promyelocytes NEUTROPHIL ABSOLUTE 7.56(H) 1.90 - 7.00 K/uL 03/03/2025 12:08 PM CDT [facility] LYMPHOCYTE ABSOLUTE 2.67 0.70 - 4.50 K/uL 03/03/2025 12:08 PM CDT [facility] MONOCYTE ABSOLUTE 0.85 0.10 - 1.30 K/uL 03/03/2025 12:08 PM CDT [facility] EOSINOPHIL ABSOLUTE 0.47 0.00 - 0.70 K/uL 03/03/2025 12:08 PM CDT [facility] BASOPHILS ABSOLUTE 0.08 0.00 - 0.20 K/uL 03/03/2025 12:08 PM CDT [facility] IMMATURE GRANULOCYTES ABSOLUTE 0.06(H) 0.00 - 0.03 K/uL 03/03/2025 12:08 PM CDT [facility] Blood Venipuncture / Unknown 03/03/2025 11:46 AM CDT 03/03/2025 12:03 PM CDT Dejuan MARTIN HEMATOLOGY ORDERABLES Final Result [facility] CLIA# [id number] [address] [place] [address] * (ABNORMAL) COMPREHENSIVE METABOLIC PANEL (03/03/2025 11:46 AM CDT) SODIUM 138 136 - 145 mmol/L 03/03/2025 12:34 PM CDT [facility] POTASSIUM 4.3 3.4 - 5.1 mmol/L 03/03/2025 12:34 PM CDT [facility] CHLORIDE 96(L) 98 - 107 mmol/L 03/03/2025 12:34 PM CDT [facility] CO2 21(L) 22 - 29 mmol/L 03/03/2025 12:34 PM CDT [facility] CALCIUM 10.4 8.6 - 10.4 mg/dL 03/03/2025 12:34 PM CDT [facility] BUN 16 6 - 20 mg/dL 03/03/2025 12:34 PM CDT [facility] CREATININE 0.84 0.51 - 0.95 mg/dL 03/03/2025 12:34 PM CDT [facility] Comment:The GFR result is no t clinically significant on patients <18 or >70 years of age. GLUCOSE 126(H) 74 - 99 mg/dL 03/03/2025 12:34 PM CDT [facility] TOTAL PROTEIN 8.1 6.3 - 8.7 g/dL 03/03/2025 12:34 PM CDT [facility] ALBUMIN 4.4 3.5 - 5.2 g/dL 03/03/2025 12:34 PM CDT [facility] BILIRUBIN TOTAL <0.2(L) 0.2 - 1.1 mg/dL 03/03/2025 12:34 PM CDT [facility] ALKALINE PHOSPHATASE 28(L) 40 - 150 U/L 03/03/2025 12:34 PM CDT [facility] AST 27 0 - 33 U/L 03/03/2025 12:34 PM CDT [facility] ALT 16 0 - 33 U/L 03/03/2025 12:34 PM CDT [facility] GFR >60 mL/min/1.7 3 sq meter 03/03/2025 12:34 PM CDT [facility] Comment:eGFR calculated with 2020 CKD-EPI equation. Vegetarian diet, extremely high or low muscle mass, and may affect results. Cystatin C with Glomerular Filtration Rate is a suitable alternative for these patients. ANION GAP 21(H) 8 - 16 mmol/L 03/03/2025 12:34 PM T [facility] Blood Venipuncture / Unknown 03/03/2025 11:46 AM CDT 03/03/2025 12:02 PM CDT Dejuan MARTIN CHEMISTRY ORDERABLES Final Result [facility] CLIA# [id number] [address] [place] [address] from Last [address] [address] [place] [id number] [employer] [facility] Care Teams Professor Of Astronomy Relationship Specialty Start Date End Date Jose Ross MD [address] [place] [address] PCP - General Internal Medicine 03/03/25
--- OUTSIDE RECORDS SUMMARY | 2025-04-07 13:23 | XMS_ITS | Continuity of Care Document ---
Author Organization [facility] Address [address] [place] [address] [place] [address] Phone Care Team Providers Care Optometry Professor Name Role Phone Hans Iraheta DO Unavailable Unavailable Advance Directives Directive Yes / No Effective Date File Name No Information Encounters Encounter Description Practice Location Reason(s) For Visit Diagnoses Date Provider Providers Copied on Encounter Formerly [facility], [address] [place] [address] [address], [place], [place], [id number], tel:[phone] [facility] No Information Myrtle Jaeger. [address] [place], [address], [place]. tel:[phone] Family History Family Member Type Diagnosis Age At Onset No Information Payers Payer name Insurance type Covered republican ID Authoriza tion(s) No Information Social History [...]
--- NOTE | 2025-04-07 13:43 | ECG_ITS ---
Test Date: 2025-04-07 13:55:35 Measurements Intervals [place] Rate: 88 P: 56 PA: 166 QRS: -24 QRSD: 102 T: 61 QT: 395 QTc: 480 Interpretive Statements SINUS RHYTHM WITH OCCASIONAL VENTRICULAR PREMATURE COMPLEXES WITH OCCASIONAL SUPRAVENTRICULAR PREMATURE COMPLEXES POSSIBLE ANTERIOR MYOCARDIAL INFARCTION , PROBABLY OLD [30 ms Q WAVE IN V3/V4, OR R < 0.2 mV IN V4] No previous ECG available for comparison Electronically Signed On 04-08-2025 11:06:35 CDT by Cory Gan M.D.
== END 2025-04-07 13:21 | disposition home or self-care (01) ==
PROVIDERS: PCP Emergency Medicine; Visit Provider Emergency Medicine
DX: R94.31 Abnormal electrocardiogram [ECG] [EKG] (principal); I49.9 Cardiac arrhythmia, unspecified
CPT/HCPCS: 93005

== ENCOUNTER 2025-06-09 08:54 | Outpatient (CLI) | payer MEDICARE, SELFPAY ==
--- NOTE | ~2025-06-09 | DEXA_ITS ---
Bone Density Report Name: MIRTA MASSEY Age: 80 Sex: Female Ethnicity: White Date of : 1945 Indication: postmenopausal; screening for osteoporosis; prior fracture; hysterectomy; Referring Provider: Maddy Plascencia Study: Bone densitometry was performed. Exam Date: June 09, 2025 Accession number: [id number] Bone Density: Region BMD T-score Z-score Classification AP Spine(L1-L4) 0.983 -0.6 2.0 Normal Femoral Neck (Left) 0.540 -2.8 -0.6 Osteoporosis Total Hip (Left) 0.817 -1.0 0.9 Normal Femoral Neck (Right) 0.508 -3.1 -0.8 Osteoporosis Total Hip (Right) 0.788 -1.3 0.7 Osteopenia Total Hip Mean 0.802 -1.2 0.8 Osteopenia World Health Organization criteria for BMD impression classify patients as: Normal (T-score at or above -1.0), Osteopenia (T-score between -1.0 and -2.5), or Osteoporosis (T-score at or below -2.5). 10-year Fracture Risk: FRAX not reported because: Some T-score for Spine Total or Hip Total or Femoral Neck at or below -2.5 Previous Exams: -- Region Exam Age BMD T-score BMD Change BMD Change Date g/cm2 vs Baseline vs Previous -- AP Spine (L1-L4) 06/09/2025 80 0.983 -0.6 -4.1%# -4.1%# 07/16/2013 68 1.024 -0.2 Total Hip(Left) 06/09/2025 80 0.817 -1.0 -23.2%# -23.2%# 07/16/2013 68 1.063 1.0 Total Hip(Right) 06/09/2025 80 0.788 -1.3 -26.8%# -26.8%# 07/16/2013 68 1.077 1.1 -- *Denotes significance at 95% confidence level, LSC for AP Spine = 0.022 g/cm2, LSC for Total Hip = 0.027 g/cm2 # Denotes dissimilar scan types or analysis methods Clinical Information Provided by Patient: Has had a low trauma fracture Smokes Has used the following medications: Vitamin D Has the following medical conditions: Hysterectomy Patient maximum height was 62 Menopause Age: 44 No regular weight bearing exercise Does not regularly consume dairy products Drinks caffeinated beverages Onset of menses at age 13 Number of children 2 Impression: The patient has established osteoporosis, based on the Right Femoral Neck T-score and the existence of a prior fracture. The patient has risk factors, including: smoking, previous fracture. Unable to evaluate interval change due to the use of different scan modes. Discussion: HIGH RISK OF FRACTURE. BONE DENSITY IS UNDESIRABLY LOW AT ONE OR MORE SKELETAL SITES, CONSISTENT WITH POSTMENOPAUSAL OSTEOPOROSIS. This patient's lowest T-score, in a patient who has previously fractured, meets the World Health Organization's (WHO) criteria for severe osteoporosis. In untreated patients, the risk of osteoporotic fracture increases approximately two-fold for each 1.0 SD decrease in T-score. Low bone density is not the only risk factor for fracture; also consider factors such as patient's age, frailty or poor health, risk of falling, risk of injury, previous osteoporotic fracture, family history of osteoporosis, cigarette smoking, low body weight, etc. Not everyone with low bone mineral density has osteoporosis; osteomalacia and other metabolic bone disorders should also be considered. Patients who have osteoporosis should be evaluated for specific diseases and conditions (secondary causes) that may cause or contribute to bone loss. The [employer] Association of Clinical Endocrinologists (AACE) and National Osteoporosis Foundation (NOF) recommend pharmacologic intervention for all postmenopausal women whose T-score is in this range. The patient should follow a healthful lifestyle (good nutrition with adequate calcium and vitamin D, and appropriate weight-bearing exercise). Follow-Up: Consider a repeat BMD and Vertebral Fracture Assessment (VFA) exam in 2 years or sooner if medically necessary, to reassess this patient's status. Reported by: ARIELLA on 06/09/2025 9:22:00 AM. Reviewed, dictated and finalized at location A.
== END 2025-06-09 08:55 | disposition home or self-care (01) ==
LOC: MICIMG 08:56
PROVIDERS: PCP Emergency Medicine; Visit Provider Internal Medicine Endocrinology, Diabetes & Metabolism
DX: M81.0 Age-related osteoporosis without current pathological fracture (principal); M85.89 Other specified disorders of bone density and structure, multiple sites; Z78.0 Asymptomatic menopausal state; E11.65 Type 2 diabetes mellitus with hyperglycemia; Z79.4 Long term (current) use of insulin
CPT/HCPCS: 77080